=== PATIENT | female | born 1950 | race Caucasian/White ===

== ENCOUNTER 2020-09-08 08:20 | Outpatient (CLI) | payer MEDICARE, SELFPAY ==
[2020-09-08 08:33] LABS: Basophils Absolute Auto 0.06 K/mm3 (0.00-0.10); Basophils Percent Auto 0.6 % (0.0-1.0); Eosinophils Absolute Auto 0.18 K/mm3 (0.02-0.50); Eosinophils Percent Auto 1.8 % (1.0-6.0); Hematocrit 47.2 % (35.0-42.0); Hemoglobin 15.2 g/dL (11.7-13.8); Immature Granulocyte Absolute 0.03 K/mm3 (0.00-0.00); Immature Granulocyte Percent A 0.3 % (0.0-0.0); Lymphocytes Absolute Auto 1.76 K/mm3 (1.10-4.50); Lymphocytes Percent Auto 17.5 % (18.0-42.0); Mean Corpuscular HGB Conc 32.2 g/dL (32.0-36.0); Mean Corpuscular Hemoglobin 28.7 pg (27.0-31.0); Mean Corpuscular Volume 89.1 fL (78.0-102.0); Mean Platelet Volume 10.2 fl (9.2-11.8); Monocytes Absolute Auto 0.53 K/mm3 (0.10-0.90); Monocytes Percent Auto 5.3 % (2.0-11.0); Neutrophils Absolute Auto 7.5 K/mm3 (1.7-7.2); Neutrophils Percent Auto 74.5 % (50.0-70.0); Platelet Count Result 418 K/mm3 (150-420); Red Cell Distribution Width 14.3 % (11.6-14.4); White Blood Count 10.1 K/mm3 (4.8-10.8)
[2020-09-08 09:14] LABS: Alanine Aminotransferase 23 U/L (14-59); Albumin Level 3.6 g/dL (3.4-5.0); Alkaline Phosphatase 104 U/L (46-116); Anion Gap 6 mmol/L (8-16); Aspartate Amino Transferase 21 U/L (15-37); Bilirubin,Total 0.6 mg/dL (0.00-1.00); Blood Urea Nitrogen 20 mg/dL (7-18); Calcium 9.1 mg/dL (8.5-10.1); Carbon Dioxide 30 mmol/L (21-32); Chloride 108 mmol/L (98-108); Cholesterol 131 mg/dL (0-200); Estimated Glomerular Filt Rate 31; Glucose 94 mg/dL (70-99); HDL Direct 43 mg/dL (40-60); LDL Cholesterol Calculated 63 mg/dL (<130); Osmolality Calculated 300 mOsm/kg (285-295); Potassium 4.8 mmol/L (3.5-5.1); Sodium 144 mmol/L (136-145); Total Protein 6.8 g/dL (6.4-8.2); Triglycerides 127 mg/dL (0-150)
== END 2020-09-08 08:21 | disposition home or self-care (01) ==
LOC: CHSLAB 08:24
PROVIDERS: PCP Nurse Practitioner Family; Visit Provider Nurse Practitioner Family
DX: E78.5 Hyperlipidemia, unspecified (principal); I10 Essential (primary) hypertension
CPT/HCPCS: 36415; 80053; 80061; 85025

== ENCOUNTER 2020-09-23 08:45 | Emergency (ER) | payer MEDICARE, SELFPAY ==
--- NOTE | ~2020-09-23 | CT_ITS ---
EXAMINATION: CT brain wo con DATE: 09/23/2020 09:00 INDICATION: Confusion. Twitching. TECHNIQUE: Computed tomography (CT) of the head was performed without intravenous contrast. The mA wa s adjusted according to patient size. Iterative reconstruction technique was employed. The dose-lengt h product was 605.33 mGy-cm. COMPARISON: Head CT 04/19/2016 FINDINGS: There is old infarct in right temporal parietal occipital region in the expected distributi on of right posterior cerebral artery. There are old infarcts in the bilateral basal ganglia. There i s no intracranial hemorrhage, acute infarction, or abnormal intracranial mass lesion. There are scatt ered areas of low attenuation in the cerebral white matter. There is ex vacuo dilatation of right lat eral ventricle. There is mild mucosal thickening in the paranasal sinuses. The mastoid air cells are normal. The orbits are normal. IMPRESSION: 1. Old infarcts in the right temporal parietal occipital region and bilateral basal ganglia. I called this result to Kwasi Servin. 2. Stable mild nonspecific cerebral white matter disease, which likely represents chronic small vesse l ischemic disease. Reviewed, dictated and finalized at location B. IMPRESSION: 1. Old infarcts in the right temporal parietal occipital region and bilateral b franky ganglia. I called this result to Kwasi Servin. 2. Stable mild nonspecific cerebral white matter disease, which likely represen ts chronic small vessel ischemic disease.
--- NOTE | ~2020-09-23 | XR_ITS ---
EXAMINATION: XR chest 1V portable DATE: 09/23/2020 09:26 INDICATION: Cerebrovascular accident. TECHNIQUE: A single frontal view of the chest was obtained. COMPARISON: None. FINDINGS: The chest demonstrates clear lungs without pneumonia, pleural effusion, or pneumothorax. Th e heart size is normal. IMPRESSION: 1. No acute cardiopulmonary disease. Reviewed, dictated and finalized at location B.
[2020-09-23 09:00] VITALS: BP 181/86; PULSE 75; RESP 20; TEMP 36.9; O2SAT 98
--- NOTE | 2020-09-23 09:05 | ECG_ITS ---
Measurements Intervals [place] Rate: 70 P: 71 NH: 139 QRS: -32 QRSD: 85 T: 82 QT: 376 QTc: 408 Interpretive Statements SINUS RHYTHM LEFT AXIS DEVIATION BASELINE ARTIFACT- I, II, III, AVR, AVL, AVF, V1, V4-V6 BORDERLINE ECG Electronically Signed On 09-23-2020 12:07:06 CDT by Alexis Cazares D.O.
[2020-09-23] MEDS: ASPIRIN 81 MG CHEWABLE TABLET 324 MG PO (09:15)
--- NOTE | 2020-09-23 09:18 | ED.NEUROSD ---
HPI - Neuro Symptoms/Deficit General Chief Complaint: Suspected CVA Stated Complaint: possible stroke Source: patient and family Mode of arrival: ambulatory Limitations: altered mental status History of Present Illness HPI Narrative: THis woman comes in brought by . She was last seen in her normal state last pm about 8pm. This morning at about 8:15 am she was seen in the kitchen by her . She seemed confused to him, and he had to help her sit down. She evidently did not recognize her medicines this am, according to the . Onset (ago): unknown Timing confirmed by: spouse Location: right arm (weakness right hand ) History of same: No Severity: moderate Quality: weak Relieving factors: none Exacerbating factors: none Associated symptoms: confusion Treatments Prior to Arrival: none Related Data Allergies Allergy/AdvReac Type Severity Reaction Status Date / Time No Known Allergies Allergy Unverified 06/05/20 07:45 Review of Systems Constitutional: Constitutional: Reports no additional constitutional complaints Eyes: Eyes: Reports no additional eye complaints ENT: Reports system reviewed and no additional complaints, except as documented Cardiovascular: Cardiovascular: Reports no additional cardiovascular complaints Respiratory: Respiratory: Reports no additional respiratory complaints Gastrointestinal: Gastrointestinal: Reports no additional gastrointestinal complaints Genitourinary: Genitourinary: Reports no additional female genitourinary complaints Musculoskeletal: Comments: new weakness right hand Integumentary/Breasts: Skin/Breast: Reports system reviewed and no additional complaints, except as docu Neurologic: Reports confusion Comments: weakness in right hand, which is new Psychiatric: Psychiatric: Reports no additional psychiatric complaints Endocrine: Endocrine: Reports no additional endocrine complaints Hematologic/Lymphatic: Hematologic/Lymphatic: Reports no additional hematologic/lymphatic complaints Allergic/Immunologic: Allergic/Immunologic: Reports no additional allergic/immunologic complaints [facility] Past Medical History Medical History Boil Hyperlipidemia Hypertension Need for 23-polyvalent pneumococcal polysaccharide vaccine Nicotine dependence TIA (transient ischemic attack) Surgical History Surgical History History of hysterectomy Family History Family History (Updated 09/23/20 @ 10:11 by Isaac Fernandez MD) Mother Family history non-contributory Social History Social History Smoking packs per day: 1 Smoking cigarettes per day: 20.0 Years smoked: 28 Smoking pack-years: 28.00 Smoking status: Current every day smoker Tobacco type: cigarettes Alcohol intake: current Substance use: never Substance use type: does not use Additional living arrangements comments: , has 2 children Gender identity (if verbalized by the patient): Female Spiritual care concerns: No Exam Const: General: cooperative, alert and awake Nutritional Appearance: average body habitus Orientation/consciousness: patient oriented x3 HENMT: Head: normal to inspection and normocephalic Ears: hearing grossly normal bilaterally General nose exam: Normal nares present Face and sinus: normal facial exam and face symmetric Mouth: Yes Normal oral and palatal mucosa present Teeth and gingiva: poor dentition Throat: posterior oropharynx normal Eyes: General: appearance normal, both eyes and all related structures Visual Jean: normal visual jean by confrontation Conjunctivae: conjunctivae normal Sclera: sclerae normal Pupils: Pupils normal by confrontation Neck: Neck: normal visual inspection Chest: Chest palpation & inspection: normal inspection of the chest Resp: Effort & Inspection: normal
[2020-09-23 09:20] VITALS: BP 161/74; PULSE 75; RESP 20; O2SAT 98
[2020-09-23 09:21] LABS: Basophils Absolute Auto 0.06 K/mm3 (0.00-0.10); Basophils Percent Auto 0.7 % (0.0-1.0); Eosinophils Absolute Auto 0.11 K/mm3 (0.02-0.50); Eosinophils Percent Auto 1.3 % (1.0-6.0); Hematocrit 45.9 % (35.0-42.0); Hemoglobin 15.1 g/dL (11.7-13.8); Immature Granulocyte Absolute 0.01 K/mm3 (0.00-0.00); Immature Granulocyte Percent A 0.1 % (0.0-0.0); Lymphocytes Absolute Auto 1.96 K/mm3 (1.10-4.50); Lymphocytes Percent Auto 23.9 % (18.0-42.0); Mean Corpuscular HGB Conc 32.9 g/dL (32.0-36.0); Mean Corpuscular Hemoglobin 28.9 pg (27.0-31.0); Mean Corpuscular Volume 87.8 fL (78.0-102.0); Mean Platelet Volume 10.5 fl (9.2-11.8); Monocytes Absolute Auto 0.48 K/mm3 (0.10-0.90); Monocytes Percent Auto 5.8 % (2.0-11.0); Neutrophils Absolute Auto 5.6 K/mm3 (1.7-7.2); Neutrophils Percent Auto 68.2 % (50.0-70.0); Platelet Count Result 398 K/mm3 (150-420); Red Blood Count 5.23 M/mm3 (4.20-5.40); Red Cell Distribution Width 14.2 % (11.6-14.4); White Blood Count 8.2 K/mm3 (4.8-10.8)
[2020-09-23 09:27] LABS: Prothrombin Time 10.7 Seconds (9.64-11.0)
[2020-09-23 09:29] VITALS: PULSE 74
[2020-09-23] MEDS: carvediloL 6.25 MG TABLET PO (09:29)
[2020-09-23 09:30] LABS: Add Urine Microscopic? YES; Appearance Urine Clear (Clear); Bilirubin Urine Negative (Negative); Blood Urine Negative (Negative); Color Urine Yellow (Yellow); Glucose Urine UA Negative (Negative); Ketones Urine Negative (Negative); Leukocyte Esterase Ur Negative (Negative); Nitrate Urine Negative (Negative); Protein Urine 1+ (Negative); Specific Grav Ur 1.015 (1.010-1.020); Urobilinogen Urine 0.2 mg/dL (0.2-1.0); pH Urine 6.5 (5.0-8.0)
[2020-09-23 09:34] LABS: Bacteria Urine Trace /hpf; RBC Urine None seen /hpf (0-2); Squamous Epithelial Cell Urine Few /hpf (Few); WBC Urine None seen /hpf (0-3)
[2020-09-23 09:34] LABS: Alanine Aminotransferase 19 U/L (14-59); Albumin Level 3.5 g/dL (3.4-5.0); Alkaline Phosphatase 94 U/L (46-116); Anion Gap 9 mmol/L (8-16); Aspartate Amino Transferase 15 U/L (15-37); Bilirubin,Total 0.6 mg/dL (0.00-1.00); Blood Urea Nitrogen 19 mg/dL (7-18); Calcium 8.8 mg/dL (8.5-10.1); Carbon Dioxide 26 mmol/L (21-32); Chloride 107 mmol/L (98-108); Estimated CRCL calculation 28 ml/min; Estimated Glomerular Filt Rate 32; Glucose 101 mg/dL (70-99); NT Pro B Type Natriuretic Pept 320 pg/mL (0-125); Osmolality Calculated 296 mOsm/kg (285-295); Potassium 4.1 mmol/L (3.5-5.1); Sodium 142 mmol/L (136-145); Total Protein 7.1 g/dL (6.4-8.2); Troponin I 7.1 ng/L (0.00-60.4)
[2020-09-23 09:35] LABS: Amphetamine Screen Urine Negative (Negative); Barbiturate Screen Urine Negative (Negative); Benzodiazepines Screen Urine Negative (Negative); Cannabinoid Screen Urine Negative (Negative); Cocaine Screen Urine Negative (Negative); Methadone Screen Urine Negative (Negative); Opiate Screen Urine Negative (Negative); Phencyclidine Screen Urine Negative (Negative)
--- NOTE | 2020-09-23 09:40 | PC.NURSE ---
Call placed to [facility] for stat stroke protocol, p reviewing all info. they called back and stated pt. not candidate for interventionalist and pt. will be placed on wait list due to no beds available. Call then placed to [facility], same report given, and they stated no bed available either. Call placed to [facility], infor given and awaiting call back from Stroke team at [facility]. Pt assisted to [facility]SC and is confused when trying to assist to toilet, pt. is unable to get to toilet s help.
[2020-09-23 09:50] LABS: Partial Thromboplastin Time 19.9 SEC (23.90-30.70)
--- NOTE | 2020-09-23 10:05 | PC.NURSE ---
Pt. to transfer to [facility], paperwork signed and given to RAI kirby report. VSS.
[2020-09-23 10:07] VITALS: BP 165/81; PULSE 74; RESP 20; TEMP 36.6; O2SAT 98
--- NOTE | 2020-09-23 10:10 | PC.NURSE ---
[id number] interventionalist Dr. Thompson, accepts for transfer. [facility] here for pt. transfer.
== END 2020-09-23 10:05 | disposition short-term general hospital (02) ==
PROVIDERS: Emergency Provider Emergency Medicine; PCP Nurse Practitioner Family
DX: I63.9 Cerebral infarction, unspecified (principal); E78.5 Hyperlipidemia, unspecified; I10 Essential (primary) hypertension; F17.200 Nicotine dependence, unspecified, uncomplicated
CPT/HCPCS: 36415; 70450; 71045; 80053; 80307; 81001; 83880; 84484; 85025; 85610; 85730; 93005; 99285; A9270

== ENCOUNTER 2020-12-02 10:10 | Outpatient (CLI) | payer MEDICARE, SELFPAY ==
[2020-12-02 11:22] LABS: Alanine Aminotransferase 25 U/L (14-59); Albumin Level 3.7 g/dL (3.4-5.0); Alkaline Phosphatase 89 U/L (46-116); Anion Gap 13 mmol/L (8-16); Aspartate Amino Transferase 21 U/L (15-37); Bilirubin,Total 0.6 mg/dL (0.00-1.00); Blood Urea Nitrogen 21 mg/dL (7-18); Carbon Dioxide 27 mmol/L (21-32); Chloride 107 mmol/L (98-108); Estimated Glomerular Filt Rate 35; Glucose 91 mg/dL (70-99); Osmolality Calculated 307 mOsm/kg (285-295); Potassium 4.7 mmol/L (3.5-5.1); Sodium 147 mmol/L (136-145); Total Protein 6.9 g/dL (6.4-8.2)
== END 2020-12-02 10:11 | disposition home or self-care (01) ==
LOC: CHSLAB 10:13
PROVIDERS: PCP Nurse Practitioner Family; Visit Provider Nurse Practitioner Family
DX: R79.89 Other specified abnormal findings of blood chemistry (principal)
CPT/HCPCS: 36415; 80053

== ENCOUNTER 2021-12-07 09:14 | Outpatient (CLI) | payer MEDICARE, SELFPAY ==
[2021-12-07 09:26] LABS: Basophils Absolute Auto 0.08 K/mm3 (0.00-0.10); Basophils Percent Auto 1.1 % (0.0-1.0); Eosinophils Absolute Auto 0.21 K/mm3 (0.02-0.50); Hemoglobin 15.5 g/dL (11.7-13.8); Immature Granulocyte Absolute 0.02 K/mm3 (0.00-0.00); Immature Granulocyte Percent A 0.3 % (0.0-0.0); Lymphocytes Absolute Auto 1.23 K/mm3 (1.10-4.50); Lymphocytes Percent Auto 17.3 % (18.0-42.0); Mean Corpuscular HGB Conc 32.3 g/dL (32.0-36.0); Mean Corpuscular Volume 89.9 fL (78.0-102.0); Mean Platelet Volume 10.3 fl (9.2-11.8); Monocytes Absolute Auto 0.53 K/mm3 (0.10-0.90); Monocytes Percent Auto 7.5 % (2.0-11.0); Neutrophils Percent Auto 70.8 % (50.0-70.0); Platelet Count Result 434 K/mm3 (150-420); Red Blood Count 5.34 M/mm3 (4.20-5.40); Red Cell Distribution Width 14.1 % (11.6-14.4); White Blood Count 7.1 K/mm3 (4.8-10.8)
[2021-12-07 10:09] LABS: Alanine Aminotransferase 22 U/L (14-59); Albumin Level 3.7 g/dL (3.4-5.0); Alkaline Phosphatase 93 U/L (46-116); Anion Gap 6 mmol/L (8-16); Aspartate Amino Transferase 21 U/L (15-37); Bilirubin,Total 0.5 mg/dL (0.00-1.00); Blood Urea Nitrogen 17 mg/dL (7-18); Calcium 8.8 mg/dL (8.5-10.1); Carbon Dioxide 29 mmol/L (21-32); Chloride 106 mmol/L (98-108); Cholesterol 114 mg/dL (0-200); Estimated Glomerular Filt Rate 33; Glucose 96 mg/dL (70-99); HDL Direct 50 mg/dL (40-60); LDL Cholesterol Calculated 40 mg/dL (<130); Osmolality Calculated 293 mOsm/kg (285-295); Potassium 4.8 mmol/L (3.5-5.1); Sodium 141 mmol/L (136-145); Total Protein 6.7 g/dL (6.4-8.2); Triglycerides 122 mg/dL (0-150)
== END 2021-12-07 09:15 | disposition home or self-care (01) ==
LOC: CHSLAB 09:16
PROVIDERS: PCP Nurse Practitioner Family; Visit Provider Nurse Practitioner Family
DX: E78.5 Hyperlipidemia, unspecified (principal); N18.30 Chronic kidney disease, stage 3 unspecified
CPT/HCPCS: 36415; 80053; 80061; 85025

== ENCOUNTER 2022-04-03 11:13 | Inpatient (IN) | payer MEDICARE, SELFPAY ==
[2022-04-03] VITALS (29 sets, daily range): BP systolic 110–152; BP diastolic 60–136; PULSE 65–88; RESP 12–24; TEMP 36.9; O2SAT 94–100; BMI 17.9
--- NOTE | ~2022-04-03 | CT_ITS ---
EXAMINATION: CT knee RT wo con DATE: 04/05/2022 08:22 INDICATION: Right knee pain. Fall. TECHNIQUE: Computed tomography (CT) of the right knee was performed without intravenous contrast. Aut omated exposure control and iterative reconstruction technique were employed. The dose-length product was 444.02 mGy-cm. COMPARISON: Right knee radiographs 04/04/2022 FINDINGS: Partially visualized is a brady in femoral diaphysis. No fracture. There are benign bone mary nds in distal femur and proximal tibia. There is mild osteoarthritis of medial and lateral compartmen ts and at least moderate osteoarthritis of patellofemoral compartment. There is a small knee joint ef fusion with loose bodies in the posterior recess. IMPRESSION: 1. No acute fracture. 2. Moderate right knee osteoarthritis. 3. Small right knee joint effusion with loose bodies. Reviewed, dictated and finalized at location A. ING UTILITY WORKER
--- NOTE | ~2022-04-03 | XR_ITS ---
EXAMINATION: XR surgery orthopedic DATE: 04/04/2022 15:15 INDICATION: Intertrochanteric nailing of a comminuted intratrochanteric right hip fracture TECHNIQUE: 6 fluoroscopic images of the right hip were obtained during procedure performed by Dr. Nic varma. Radiologist was not present for the imaging or procedure. The amount of fluoroscopy time used d uring this procedure was 2.1 minutes. COMPARISON: 04/03/22 FINDINGS: Interval reduction and internal fixation of a comminuted intratrochanteric fracture of the proximal r ight femur with an antegrade intramedullary brady and pair of interlocking femoral neck dynamic thomas mellisa screws. Alignment of the fixation appears near-anatomic. No change in mild proximal/medial distr action of the fragments comprising portions of the lesser and greater trochanters which are not inclu ded within the fixation. Mild osteoarthritis at the right hip. Sclerotic likely bone island projectin g over the medial right acetabulum. IMPRESSION: 1. Near-anatomic alignment of the weightbearing axis of the right femur post reduction and internal f ixation of a comminuted intratrochanteric fracture of the proximal right femur. Reviewed, dictated and finalized at location A. NESS DEVELOPMENT COORDINATOR IMPRESSION: 1. Near-anatomic alignment of the weightbearing axis of the right femur post re duction and internal fixation of a comminuted intratrochanteric fracture of the proximal right femur.
--- NOTE | ~2022-04-03 | US_ITS ---
US renal BI 04/04/2022 10:03 Procedure: Realtime transabdominal ultrasound of the kidneys and bladder. Indication: Acute renal insufficiency Comparison: No prior studies for comparison. Findings: Renal echotexture is normal bilaterally without hydronephrosis, contour deforming mass or r enal calculus. The right kidney measures 9.7 cm and left kidney measures 8.5 cm. Bladder not well di stended for evaluation. Impression: 1: Unremarkable renal ultrasound. No stones, masses or hydronephrosis. Reviewed, dictated and finalized at location B. T LINE SUPERVISOR Impression: 1: Unremarkable renal ultrasound. No stones, masses or hydronephrosis.
--- NOTE | ~2022-04-03 | XR_ITS ---
EXAMINATION: XR chest 1V DATE: 04/03/2022 11:43 INDICATION: Right hip pain post fall for preoperative evaluation. Cardiac risk factors of hypertensio n, hyperlipidemia and smoking. TECHNIQUE: frontal view of the chest was obtained. COMPARISON: Chest radiograph dated 09/23/2020 FINDINGS: The lungs remain clear with no focal airspace opacities, pulmonary edema, pleural effusion or pneumot horax. The cardiomediastinal silhouette is normal. Visualized bones and soft tissues are unremarkable . IMPRESSION: 1. No acute cardiopulmonary disease. Reviewed, dictated and finalized at location A. D SERVICE SUPERVISOR
--- NOTE | ~2022-04-03 | XR_ITS ---
EXAMINATION: XR hip RT 2V w AP pelvis DATE: 04/03/2022 11:43 INDICATION: Right hip pain post fall TECHNIQUE: Anteroposterior view of the pelvis and anteroposterior and cross-table lateral views of th e affected hip were obtained. COMPARISON: None. FINDINGS: Comminuted intratrochanteric fracture of the proximal right femur. There is proximal migration of the main distal fragment relative to the femoral head and neck fragment resulting in approximately 20 de grees varus angulation. There is separate smaller lesser trochanteric and greater trochanteric fractu re fragments both which appear distracted medially. The right femoral head remains normally centered in the right acetabulum with mild bilateral hip osteoarthritis. No other fractures identified. There are few scattered small sclerotic bone islands in the pelvis. IMPRESSION: 1. Comminuted intratrochanteric fracture of the proximal right femur with displacement and angulation as detailed above. Reviewed, dictated and finalized at location A. GRADER OPERATOR IMPRESSION: 1. Comminuted intratrochanteric fracture of the proximal right femur with displ acement and angulation as detailed above.
--- NOTE | ~2022-04-03 | XR_ITS ---
EXAMINATION: XR knee RT 2V DATE: 04/04/2022 12:35 INDICATION: Right knee injury. TECHNIQUE: 2 views of right knee were obtained. COMPARISON: None. FINDINGS: Bone alignment is normal. No fracture. There is mild tricompartmental osteoarthritis. There is a small knee joint effusion with loose bodies in the posterior knee joint. There is prepatellar s oft tissue swelling. IMPRESSION: 1. Mild right knee osteoarthritis. 2. Small right knee joint effusion with loose bodies. Reviewed, dictated and finalized at location A. ITY ASSURANCE SUPERVISOR
--- NOTE | 2022-04-03 11:39 | ECG_ITS ---
Measurements Intervals [place] Rate: 68 P: 71 [place]: 126 QRS: -33 QRSD: 87 T: 64 QT: 408 QTc: 436 Interpretive Statements SINUS RHYTHM LEFT AXIS DEVIATION POSSIBLE LEFT ATRIAL ENLARGEMENT RSR' IN V1 OR V2, PROBABLY NORMAL VARIANT BASELINE ARTIFACT- I, III, AVR, AVL, AVF, V1-V6 BORDERLINE ECG COMPARED TO ECG 09/23/2020 09:06:07 NO SIGNIFICANT CHANGES Electronically Signed On 04-03-2022 17:00:35 METAL DIE FINISHER by Alexis Cazares D.O.
--- NOTE | 2022-04-03 12:09 | ED.FALL ---
HPI - Fall General Chief Complaint: Fall Stated Complaint: fall, hip injury Time Seen by Provider: 04/03/22 11:36 Source: patient and family Mode of arrival: EMS Limitations: no limitations History of Present Illness HPI Narrative: This is a 71 year old female that presents to the ER after a fall last night with right hip pain. Reports she tripped over a rug and fell onto her right hip. She did not hit her head or lose consciousness. Reports since the fall she has had right hip pain. She initially was able to walk, but is no longer able to walk due to pain. Reports decreased ROM in the hip. Denies chest pain, abdominal pain, back pain, numbness or weakness. Related Data Allergies Allergy/AdvReac Type Severity Reaction Status Date / Time No Known Allergies Allergy Unverified 12/07/21 08:06 Review of Systems Review of Systems: CONSTITUTIONAL: Denies fever CARDIOVASCULAR: Denies chest pain GASTROINTESTINAL: Denies abdominal pain, vomiting MUSCULOSKELETAL: Reports joint pain and myalgia. Denies back pain NEUROLOGIC: Denies numbness, or weakness. All systems reviewed & are unremarkable except as noted in HPI and below PMFSH Past Medical History Medical History (Updated 04/03/22 @ 14:34 by Neelam Madrigal PA-C) Boil Essential tremor History of CVA (cerebrovascular accident) Hyperlipidemia Hypertension Need for 23-polyvalent pneumococcal polysaccharide vaccine Nicotine dependence TIA (transient ischemic attack) Surgical History Surgical History History of hysterectomy Family History Family History (Updated 04/03/22 @ 14:14 by Adelaida Valdez NP) Mother Hypertension Social History Social History (Updated 04/03/22 @ 14:05 by Adelaida Valdez NP) Social History: she lives with her . she has has 2 sons. one son lives with them. 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 she drinks a can of beer at times and can drink up to 3 beers during the summer. poa her kids. code status full code Smoking packs per day: 1 Smoking cigarettes per day: 20.0 Years smoked: 28 Smoking pack-years: 28.00 Smoking status: Current every day smoker Tobacco type: cigarettes Alcohol intake: current Alcohol use details: social Substance use: never Substance use type: does not use Additional living arrangements comments: , has 2 children Gender identity (if verbalized by the patient): Female Spiritual care concerns: No Exam Narrative: GENERAL: Well-appearing, well-nourished, and in no acute distress. HEAD: Normocephalic, atraumatic. EYES: PERRLA and EOMI. ENT: Nares clear, no rhinorrhea or epistaxis. Mucous membranes moist. Oropharynx without tonsillar hypertrophy exudate or other lesions. Bilateral TMs pearly peralta non-bulging NECK: Supple. No adenopathy or masses. No midline cervical spine tenderness CHEST: Clear to auscultation. No respiratory distress. No wheezes rales or rhonchi HEART: Regular rate and rhythm. No murmur heard. Normal peripheral pulses. ABDOMEN: Soft, nontender, nondistended, normal active bowel sounds. EXTREMITIES: Normal range of motion. No edema. Right leg is internally rotated and shortened. Normal DP pulses SKIN: Warm, dry, no rash. NEURO: No focal deficits. Alert and oriented x3. CN II-XII grossly intact PSYCH: Normal mood and affect Course Consultations Consultation #1: Spoke with hospitalist about patient and work-up who accepts admission. Date: 04/03/22 Consultation #2: Spoke with orthopedics who will consult Date: 04/03/22 Vital Signs Vital signs: Vital Signs Temperature 98.5 F 04/03/22 11:12 Pulse Rate 67 04/03/22 11:12 Respiratory Rate 16 04/03/22 11:12 Blood Pressure 135/76 04/03/22 11:12 Pulse Oximetry 100 04/03/22 11:12 Oxygen Delivery Room Air 04/03/22 11:12 Temperature 98.5 F 04/03/22 11:12 Pulse Rate 67 04/03/22 11:12 Respirato
[2022-04-03 12:19] LABS: Basophils Percent Auto 0.3 % (0.2-1.2); Eosinophils Percent Auto 0.1 % (0-4.4); Hematocrit 30.9 % (37.0-47.0); Hemoglobin 10.3 g/dL (12.0-15.0); Immature Granulocyte Absolute 0.06 K/mm3 (0.00-0.031); Immature Granulocyte Percent A 0.5 % (0-0.5); Lymphocytes Absolute Auto 0.75 K/mm3 (0.9-3.2); Lymphocytes Percent Auto 6.3 % (18.3-44.2); Mean Corpuscular HGB Conc 33.3 g/dl (32-36); Mean Corpuscular Hemoglobin 29.4 pg (26-34); Mean Corpuscular Volume 88.3 fl (80-100); Mean Platelet Volume 10.9 fl (7.4-10.4); Monocytes Absolute Auto 1.2 K/mm3 (0.1-0.6); Neutrophils Percent Auto 82.8 % (45.5-73.1); Platelet Count Result 374 k/mm3 (150-375); Red Cell Distribution Width 14.1 % (11.5-14.5)
[2022-04-03 12:31] LABS: Anion Gap 8 mmol/L (8-16); Blood Urea Nitrogen 67 mg/dL (7-17); Calcium 7.9 mg/dL (8.4-10.2); Carbon Dioxide 24 mmol/L (22-30); Chloride 96 mmol/L (98-107); Estimated CRCL calculation 12 ml/min; Estimated Glomerular Filt Rate 14; Glucose 111 mg/dL (65-110); Potassium 4.7 mmol/L (3.4-5.0); Sodium 128 mmol/L (137-145)
--- NOTE | 2022-04-03 14:01 | PM.IMHP ---
H&P: HPI History of Present Illness Date/Time: 04/03/22 14:01 Chief Complaint: Fell and had right hip pain Narrative: This is a 71-year-old female patient who has a history of hypertension and she lives with her as well as 1 of her sons. Is reported that the patient fell onto her right hip last night after she tripped over a rug. She landed on her right hip. She stated she did not hit her head or lose consciousness. The patient stated after about 5 minute she was able to pull herself up and was able to walk some. She stated she was sore last night. But this morning she was no longer able to walk on it due to the pain. The patient denies laying on the ground for very long. Her sodium was 128. Creatinine is 3.3 and her last known level was on 12/07/2021 and it was 155. Her calcium is low at 7.9. Chest x-ray was read as no acute cardiopulmonary disease. Right hip and pelvis x-ray was read as comminuted intertrochanteric fracture of the proximal right femur with displacement and angulation. The patient stated that she was given pain medication in the ambulance and that seemed to take care of her pain. The patient's right leg is externally rotated and shortened. The patient is being admitted to observation status on 04/03/2022. Review of Systems Review of Systems: See HPI All systems reviewed & are unremarkable except as noted in HPI and below Constitutional: Constitutional: Reports as per HPI and Reports no additional constitutional complaints Eyes: Eyes: Reports as per HPI and Reports no additional eye complaints ENT: Reports system reviewed and no additional complaints, except as documented and Reports Normal hearing present Cardiovascular: Cardiovascular: Reports no additional cardiovascular complaints Respiratory: Respiratory: Reports no additional respiratory complaints and Reports no additional respiratory complaints Gastrointestinal: Gastrointestinal: Reports as per HPI and Reports no additional gastrointestinal complaints Musculoskeletal: Musculoskeletal: Reports no additional musculoskeletal complaints Integumentary/Breasts: Skin/Breast: Reports system reviewed and no additional complaints, except as docu and Reports as per HPI Neurologic: Reports system reviewed and no additional complaints, except as documented, Reports as per HPI and Reports Normal hearing present Psychiatric: Psychiatric: Reports no additional psychiatric complaints and Reports as per HPI Endocrine: Endocrine: Reports no additional endocrine complaints Hematologic/Lymphatic: Hematologic/Lymphatic: Reports no additional hematologic/lymphatic complaints Allergic/Immunologic: Allergic/Immunologic: Reports no additional allergic/immunologic complaints [facility] Past Medical History Medical History (Updated 04/03/22 @ 15:25 by Adelaida Valdez NP) Boil Essential tremor History of CVA (cerebrovascular accident) Hyperlipidemia Hypertension Need for 23-polyvalent pneumococcal polysaccharide vaccine Nicotine dependence TIA (transient ischemic attack) Surgical History Surgical History (Updated 04/03/22 @ 14:53 by Adelaida Valdez NP) History of hysterectomy History of removal of pigmented skin lesion Family History Family History (Updated 04/03/22 @ 14:14 by Adelaida Valdez NP) Mother Hypertension Social History Social History (Updated 04/03/22 @ 14:53 by Adelaida Valdez NP) Social History: she lives with her and 1 of her sons. she has has 2 sons. 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 she drinks a can of beer at times and can drink up to 3 beers during the summer.(family member stated that she probably drinks more than stated) Poa her kids. code status full code Smoking packs per day: 1 Smoking cigarettes per day: 20.0 Years smoked: 28 Smoking pack-years: 28.00 Smoking status: Former smoker Tobacco type: cigarettes Alcohol intake: current Alcohol use details:
[2022-04-03 14:27] LABS: Appearance Urine Slightly Cloudy (Clear); Bilirubin Urine 1+ (Negative); Blood Urine 2+ (Negative); Color Urine Yellow (Yellow); Glucose Urine UA Negative (Negative); Ketones Urine Negative (Negative); Leukocyte Esterase Ur Negative LEU/UL (Negative); Nitrate Urine Negative (Negative); Protein Urine 2+ mg/dL (Negative); Specific Grav Ur 1.015 (1.001-1.035); Urobilinogen Urine 0.2 mg/dL (<2.0)
[2022-04-03 14:35] LABS: Bacteria Urine Trace /hpf; Mucus Urine Rare /lpf; RBC Urine 0-2 /hpf (0-2); WBC Urine 0-3 /hpf
[2022-04-03 14:36] LABS: Add Urine Microscopic? YES
--- NOTE | 2022-04-03 14:40 | PC.NURSE ---
report received from Nano OROPEZA RN
[2022-04-03] MEDS: SODIUM CHLORIDE 0.9% IV 1,000 ML 999 ML IV CONT (14:44)
[2022-04-03 15:01] LABS: Amphetamine Screen Urine Negative (Negative); Barbiturate Screen Urine Negative (Negative); Benzodiazepines Screen Urine Negative (Negative); Cannabinoid Screen Urine Negative (Negative); Cocaine Screen Urine Negative (Negative); Methadone Screen Urine Negative (Negative); Opiate Screen Urine Negative (Negative); Phencyclidine Screen Urine Negative (Negative)
--- NOTE | 2022-04-03 15:15 | PC.NURSE ---
called OR to inform that pt took plavix 75 mg and aspirin 81 mg PO this morning.
--- NOTE | 2022-04-03 15:27 | PC.NURSE ---
Spoke with MD Cam stated surgery possibly around 11 am tomorrow per MD Cam, informed pt took plavix 75 mg and aspirin 81 mg po this morning.
[2022-04-03] MEDS: SODIUM CHLORIDE 0.9% IV 1,000 ML 150 ML IV CONT (15:45)
[2022-04-03] MEDS: NICOTINE (*PBKC) 21 MG PATCH 1 PATCH TRANSDERM (15:45)
[2022-04-03] MEDS: fentaNYL CITRATE INJ (*CRX) 100 MCG/2 ML VIAL 25 MCG IV PUSH ×2 (17:32→21:55)
--- NOTE | 2022-04-03 17:49 | PC.NURSE ---
Addendum entered by Radha Solorio RN 04/03/22 18:51: wrong pt Original Note: attempted straight cath for urine sample, unable to obtain pt already voided.
--- NOTE | 2022-04-03 18:26 | PC.NURSE ---
consents signed for surgery tomorrow and blood transfusion if needed.
--- NOTE | 2022-04-03 18:35 | PC.NURSE ---
This patient, Patricia Nava, was admitted to Medical Room 348-01. Patient/family oriented to hospital policies and general routines including ID bracelet, bed and alarms, visiting hours, pain management, procedures, bathroom and other care routines, personal items, smoking policy, room service/diet, and visiting hours. Information on how to activate the Rapid Response Team has been discussed. Patient/Family are encouraged to report perceived risks to care and to ask questions if they do not understand what they are told or what they should do. report received from [facility], pt arrived around 1500
[2022-04-03] MEDS: ATORVASTATIN 40 MG TABLET BY MOUTH (20:34)
[2022-04-03] MEDS: PROPRANOLOL HCL 10 MG TABLET BY MOUTH (20:34)
[2022-04-04] VITALS (19 sets, daily range): BP systolic 112–158; BP diastolic 52–71; PULSE 55–102; RESP 14–18; TEMP 36.2–37.2; O2SAT 94–100
[2022-04-04 05:37] LABS: Basophils Percent Auto 0.3 % (0.2-1.2); Eosinophils Percent Auto 0.1 % (0-4.4); Hematocrit 26.5 % (37.0-47.0); Hemoglobin 8.8 g/dL (12.0-15.0); Immature Granulocyte Absolute 0.06 K/mm3 (0.00-0.031); Immature Granulocyte Percent A 0.5 % (0-0.5); Lymphocytes Absolute Auto 0.95 K/mm3 (0.9-3.2); Lymphocytes Percent Auto 8.4 % (18.3-44.2); Mean Corpuscular HGB Conc 33.2 g/dl (32-36); Mean Corpuscular Hemoglobin 29.2 pg (26-34); Mean Platelet Volume 10.7 fl (7.4-10.4); Monocytes Percent Auto 8.9 % (2.6-8.5); Neutrophils Absolute Auto 9.2 K/mm3 (1.3-6.7); Neutrophils Percent Auto 81.8 % (45.5-73.1); Platelet Count Result 346 k/mm3 (150-375); Red Blood Count 3.01 M/mm3 (4.2-5.4); White Blood Count 11.3 K/mm3 (4.5-10.0)
[2022-04-04 05:45] LABS: Lactic Acid Reflex 0.6 mmol/L (0.7-2.0)
[2022-04-04 05:51] LABS: Alanine Aminotransferase 28 U/L (6-35); Albumin Level 2.9 g/dL (3.5-5.1); Alkaline Phosphatase 60 U/L (38-126); Anion Gap 7 mmol/L (8-16); Aspartate Amino Transferase 51 U/L (14-36); Bilirubin,Total 0.9 mg/dL (0.2-1.3); Blood Urea Nitrogen 70 mg/dL (7-17); Calcium 7.6 mg/dL (8.4-10.2); Carbon Dioxide 20 mmol/L (22-30); Chloride 105 mmol/L (98-107); Estimated CRCL calculation 14 ml/min; Estimated Glomerular Filt Rate 17; Glucose 90 mg/dL (65-110); Magnesium 2.6 mg/dL (1.6-2.3); Potassium 4.2 mmol/L (3.4-5.0); Sodium 132 mmol/L (137-145)
[2022-04-04 06:17] LABS: Vitamin D 25 Hydroxy 17.5 ng/mL
--- NOTE | 2022-04-04 07:22 | WPDHPUPDATE1 ---
History and Physical Update Update Date/Time: 04/04/22 07:22 History and Physical has been reviewed, including an updated exam of the patient. There are NO changes in the patient's condition. Risks, benefits, and alternatives have been discussed and questions answered. Patient agrees to proceed with procedure.
--- NOTE | 2022-04-04 08:45 | P.PNIM_ITS ---
Progress Note: A&P Assessment and Plan (1) Closed fracture of right hip: Qualifiers: Encounter type: initial encounter Qualified Code(s): S72.001A - Fracture of unspecified part of neck of right femur, initial encounter for closed fracture Code(s): S72.001A - Fracture of unspecified part of neck of right femur, initial encounter for closed fracture Status: Acute Assessment and Plan: * Patient presented after a fall. * Right hip a x-ray showed communicated inter trochanter fracture of the prox imal right femur * orthopedics is consulted * surgical procedures scheduled for today * NPO for now * pain medications on board * antiemetics on board * postop care per Orthopedics * DVT prophylaxis per Orthopedics * PT and OT post op (2) CHAD (acute kidney injury): Code(s): N17.9 - Acute kidney failure, unspecified Status: Acute Assessment and Plan: * BUN and creatinine elevated upon arrival at 67 /3.30 * current BUN creatinine 70/2.80 * Creatinine was 1.55 in November * Renal ultrasound does not appear to have any abnormalities * Trend down * Continue IV Fluids * Trend labs * Avoid nephrotoxic medications * Urine studies ordered * Seems to be more likely dehydration * Consider Nephro if improvement is not continued (3) CKD (chronic kidney disease) stage 3, GFR 30-59 ml/min: Code(s): N18.30 - Chronic kidney disease, stage 3 unspecified Status: Acute Assessment and Plan: * Appears to be in stage 3 * Continue to trend labs * See above (4) Hyperlipidemia: Code(s): E78.5 - Hyperlipidemia, unspecified Status: Acute Assessment and Plan: -continue with atorvastatin -monitor liver functions (5) Hypertension: Code(s): I10 - Essential (primary) hypertension Status: Acute Assessment and Plan: * Current BP is 113/61 * Continue home amlodipine * Trend BP * Adjust therapy as indicated (6) Nicotine dependence: Code(s): F17.200 - Nicotine dependence, unspecified, uncomplicated Status: Acute Assessment and Plan: -smoking cessation reiterated for another 5 mins -the patient is agreeable to nicotine patch. -add gum (7) History of CVA (cerebrovascular accident): Code(s): Z86.73 - Personal history of transient ischemic attack (TIA), and cerebral infarction without residual deficits Status: Acute Assessment and Plan: -Only residual she has is essential tremors. -Continue propanolol -Hold plavix and aspirin for surgical intervention (8) Fall: Code(s): W19.XXXA - Unspecified fall, initial encounter Status: Acute Assessment and Plan: * Ground level fall, Velcro from shoes noted to have stuck to the carpet * Hip fracture * Denies any other reason for fall * CHAD noted, UA does not appear to be infectious * PT/OT when appropriate Plan Postop DVT prophylaxis per Ortho. Time Spent With Patient Time with patient: Greater than 35 minutes Subjective Date/time seen: 04/04/22844 Interval history: 04/04/22844 Patient was lying in bed resting com
--- NOTE | 2022-04-04 08:45 | PM.IMPN ---
Progress Note: A&P Assessment and Plan (1) Closed fracture of right hip: Qualifiers: Encounter type: initial encounter Qualified Code(s): S72.001A - Fracture of unspecified part of neck of right femur, initial encounter for closed fracture Code(s): S72.001A - Fracture of unspecified part of neck of right femur, initial encounter for closed fracture Status: Acute Assessment and Plan: Patient presented after a fall. Right hip a x-ray showed communicated inter trochanter fracture of the proximal right femur orthopedics is consulted surgical procedures scheduled for today NPO for now pain medications on board antiemetics on board postop care per Orthopedics DVT prophylaxis per Orthopedics PT and OT post op (2) CHAD (acute kidney injury): Code(s): N17.9 - Acute kidney failure, unspecified Status: Acute Assessment and Plan: BUN and creatinine elevated upon arrival at 67 /3.30 current BUN creatinine 70/2.80 Creatinine was 1.55 in November Renal ultrasound does not appear to have any abnormalities Trend down Continue IV Fluids Trend labs Avoid nephrotoxic medications Urine studies ordered Seems to be more likely dehydration Consider Nephro if improvement is not continued (3) CKD (chronic kidney disease) stage 3, GFR 30-59 ml/min: Code(s): N18.30 - Chronic kidney disease, stage 3 unspecified Status: Acute Assessment and Plan: Appears to be in stage 3 Continue to trend labs See above (4) Hyperlipidemia: Code(s): E78.5 - Hyperlipidemia, unspecified Status: Acute Assessment and Plan: -continue with atorvastatin -monitor liver functions (5) Hypertension: Code(s): I10 - Essential (primary) hypertension Status: Acute Assessment and Plan: Current BP is 113/61 Continue home amlodipine Trend BP Adjust therapy as indicated (6) Nicotine dependence: Code(s): F17.200 - Nicotine dependence, unspecified, uncomplicated Status: Acute Assessment and Plan: -smoking cessation reiterated for another 5 mins -the patient is agreeable to nicotine patch. -add gum (7) History of CVA (cerebrovascular accident): Code(s): Z86.73 - Personal history of transient ischemic attack (TIA), and cerebral infarction without residual deficits Status: Acute Assessment and Plan: -Only residual she has is essential tremors. -Continue propanolol -Hold plavix and aspirin for surgical intervention (8) Fall: Code(s): W19.XXXA - Unspecified fall, initial encounter Status: Acute Assessment and Plan: Ground level fall, Velcro from shoes noted to have stuck to the carpet Hip fracture Denies any other reason for fall CHAD noted, UA does not appear to be infectious PT/OT when appropriate Plan Postop DVT prophylaxis per Ortho. Time Spent With Patient Time with patient: Greater than 35 minutes Subjective Date/time seen: 04/04/22844 Interval history: 04/04/22844 Patient was lying in bed resting comfortably. She currently stated that her pain was a 5/10. She stated that it is mostly just sore with that hip is. She currently denies any chest pain, shortness a breath, nausea, vomiting, diarrhea, constipation. She denies any urinary symptoms including frequency, urgency, burning or pain. It was noted that she had tripped as her velcro shoes got stuck on the rug. 04/03/22? 14:01 This is a 71-year-old female patient who has a history of hypertension and she lives with her as well as 1 of her sons.? Is reported that the patient fell onto her right hip last night after she tripped over a rug.? She landed on her right hip.? She stated she did not hit her head or lose consciousness.? The patient stated
[2022-04-04] MEDS: PROPRANOLOL HCL 10 MG TABLET BY MOUTH ×2 (08:55→20:23)
[2022-04-04 12:02] LABS: Creatinine Urine 102.1 mg/dL; Urea Random Urine 821 MG/DL
[2022-04-04 12:08] LABS: Sodium Urine Random < 5 meq/L
--- NOTE | 2022-04-04 12:15 | PM.CNOR ---
Assessment and Plan Assessment and plan (1) Intertrochanteric fracture of right hip: Code(s): S72.141A - Displaced intertrochanteric fracture of right femur, initial encounter for closed fracture Status: Acute Assessment and Plan: patient is a 71-year-old female who fell at home night before last came into the emergency room yesterday morning with a comminuted displaced 4 part right intertrochanteric hip fracture. She denies other injury. She lives at home with her and son. She does not use a gait aid but is very unsteady and has been for several years. She holds onto the furniture to make her way through her home. She does not walk very much. She had strokes in 2017 and 2018. She had a CT scan brain 09/23/2020 which demonstrated old infarcts right temporal parietal occipital and bilateral basal ganglia infarcts as well as chronic ischemic small vessel disease throughout. Patient is a long-term smoker and continues to smoke. A Nicoderm patch has been applied. Toxicology screen was negative yesterday. Her evaluation yesterday showed a hemoglobin of 10.3 and this morning with rehydration her hemoglobin is 8.8 and this represents chronic anemia with superimposed acute blood loss anemia of before surgery. The anemia is normocytic. Her platelet count was 158790. White count slightly elevated at 11.3. It would seem that she has anemia of chronic disease and may have relative deficiency of erythropoietin associated with chronic renal insufficiency that was noted to be much worse on admission to the emergency room yesterday with creatinine of 3.3 and BUN of 64. After normal saline hydration overnight her creatinine is now 2.8 with BUN of 70. Estimated creatinine clearance was 14. Her sodium remains a little bit low at 132 this morning significantly improved from 06/11 on admission yesterday. With her anemia of 8.8 before surgery to repair a comminuted intertrochanteric hip fracture comment is extremely likely she will need transfusion after surgery and this was explained to patient and her daughter. Type and screen has been completed. Her 25 hydroxy vitamin-D was low at 17.5 and supplementation would be warranted. Calcium was low 7.6 albumin is very low today at 2.9. It was 3.7 on admission prior to rehydration and normally runs in the 3.5 range. Nutritional supplementation would be helpful and we will ask the waist pleater to aid with this as excessive calcium and excessive protein supplementation could be additional stress on her kidneys potentially. On exam today she was very pleasant she is alert and oriented. She was comfortable if she held perfectly still. She asked for a pillow under her left calf and moving her left leg because severe pain in the right hip. She denies any other areas of pain. She moves her arms neck well. She wiggled her toes up and down on the right in has 2+ dorsalis pedis and posterior tibial artery pulses palpable and denies numbness. Her face appears symmetric with no evidence of focal neurologic deficit to suggest recent cerebrovascular accident and she states she has no known deficit from her prior strokes although her balance is quite poor and that might be related. I recommended that she use a walker from this point forward as the risk of further falls is very high and with her osteoporosis that is evident her risk of fracture is very high. She had no swelling in the right leg except for right knee effusion and a 1 inch ecchymosis on the anterolateral aspect of her right knee which apparently struck the floor when she fell. Her stepdaughter who was present did not feel that the right knee was significantly swollen yesterday. We will obtain x-rays to the extent possible make sure there is no displaced fracture there. Renal ultrasound today was negative. Chest x-ray showed no acute disease. EKG showed borderline changes with no change compared with September 23, 2020 EKG. Impression: Patient
--- NOTE | 2022-04-04 12:25 | PM.CNNEP ---
Assessment and Plan Assessment and plan (1) CHAD (acute kidney injury): Code(s): N17.9 - Acute kidney failure, unspecified Status: Acute Assessment and Plan: improvement noted since admission suspect due to volume depletion/prerenal azotemia evaluation to date: urine electrolytes prerenal renal ultrasound normal UA with protein and blood continue gentle IVF hydration follow repeat labs and UOP (2) Stage 3b chronic kidney disease: Code(s): N18.32 - Chronic kidney disease, stage 3b Status: Chronic Assessment and Plan: baseline creatinine runs around 1.4 - 1.7mg/dl from records here at [facility] presumably due to HTN, vascular disease, and age-related change (3) Hypertension: Code(s): I10 - Essential (primary) hypertension Status: Acute Assessment and Plan: reasonable control at this time follow trend of hemodynamics (4) Closed fracture of right hip: Qualifiers: Encounter type: initial encounter Qualified Code(s): S72.001A - Fracture of unspecified part of neck of right femur, initial encounter for closed fracture Code(s): S72.001A - Fracture of unspecified part of neck of right femur, initial encounter for closed fracture Status: Acute Assessment and Plan: Orthopedic consulted/following likely surgical intervention this afternoon Long and extensive discussion (> 20 minute) with patient and family at bedside regarding issue of CHAD/ARF as well as current interventions to date in an effort to get her renal function back to baseline. They all appeared to voice understanding. Will continue to follow. History of Present Illness Reason for Consult Consult date: 04/04/22 Reason for consult: acute renal failure (on chronic kidney disease) Chief Complaint Chief complaint: Right Hip Fracture History of Present Illness Narrative: The patient is a 71-year-old female with a past medical history as outlined below who presented to [facility] Emergency room after she sustained a fall. The patient apparently fell onto her right hip the night before admission after she tripped over a rug. She landed on her right hip and denies any loss of consciousness or head trauma. After about 5 minutes, she was able to pull herself up and able to walk some but that she was sore that entire evening. On the morning of admission, she was no longer able to walk on her right leg due to severe pain. Given the severity of the pain as mentioned, she presented to the emergency room for further assessment. Workup and evaluation in emergency room demonstrated routine blood test that showed an elevated BUN and creatinine above her baseline in association with mild hyponatremia. Her chest x-ray was negative and right hip / pelvis x-rays demonstrated a comminuted intertrochanteric fracture of the proximal right femur with displacement and angulation. Her pain control seems to be reasonable both by medications given via EMS as well as in the emergency room. Her exam was significant for a externally rotated and shortened right leg. Given these laboratory and imaging findings, she was admitted the hospital for further evaluation and therapy Since her admission, with IV fluids, her renal function has improved somewhat as has her electrolyte abnormalities. She has been seen by Orthopedic surgery and she is tentatively scheduled for surgical intervention this afternoon for definitive treatment of her right hip fracture. Renal consultation was requested due to her acute kidney injury/acute renal failure on top of her baseline kidney disease. The patient is not recall ever being told that she had any kidney issues or kidney problems although from review of her records here at [facility], it would seem that she does have some renal insufficiency with a baseline creatinine around 1.4-1.7 mg/dL. Presumably, her renal insufficiency is due t
[2022-04-04] MEDS: LACTATED RINGERS 1,000 ML 30 ML IV CONT (12:40)
--- NOTE | 2022-04-04 12:42 | WPDHPUPDATE1 ---
History and Physical Update Update Date/Time: 04/04/22 12:42 History and Physical has been reviewed, including an updated exam of the patient. There are NO changes in the patient's condition. Risks, benefits, and alternatives have been discussed and questions answered. Patient agrees to proceed with procedure.
[2022-04-04] MEDS: TRANEXAMIC ACID 1,000MG/ISO100 1,000 MG/100 ML BAG 200 MG IVPB (13:00)
--- NOTE | 2022-04-04 13:11 | WPDANESEPPF ---
Anes - Initial Pre Proc Eval Procedure: Operation Date: 04/04/22 14:30 Proposed Procedures p Right Intertrochanteric Nail - Woodrow Cam MD Date/Time: 04/04/22 13:11 Surgeon: Sagar Patrick MD Pre Op Diagnosis: Right Hip Intertrochanteric Fracture, CHAD Patient Data Age: 71 Gender: F Height: 1.7 m Weight: 52 kg Last Vital Signs Temp 37.2 C 04/04/22 12:51 Pulse 71 04/04/22 12:51 Resp 16 04/04/22 12:51 BP 112/52 L 04/04/22 12:51 Pulse Ox 98 04/04/22 12:51 O2 Del Method Room Air 04/04/22 12:51 Allergies Allergy/AdvReac Type Severity Reaction Status Date / Time No Known Allergies Allergy Unverified 12/07/21 08:06 Home Medications Medication Instructions Recorded Confirmed Type aspirin 81 mg tablet,delayed 81 mg PO DAILY #90 tabs 12/07/21 04/03/22 Rx release propranolol 10 mg tablet See Rx Instructions .Route 12/07/21 04/03/22 Rx .COMPLEX #180 tabs amlodipine 5 mg tablet See Rx Instructions .Route 01/14/22 04/03/22 Rx .COMPLEX #90 tabs clopidogrel 75 mg tablet See Rx Instructions .Route 01/19/22 04/03/22 Rx .COMPLEX #90 tabs atorvastatin 40 mg tablet See Rx Instructions .Route 02/28/22 04/03/22 Rx .COMPLEX #90 tabs Laboratory Tests 04/03/22 04/03/22 04/03/22 11:47 14:13 14:39 WBC RBC Hgb Hct MCV MCH MCHC RDW Plt Count MPV Immature Gran % (Auto) Neut % (Auto) Lymph % (Auto) Allen % (Auto) Eos % (Auto) Baso % (Auto) Lymph # (Auto) Allen # (Auto) Eos # (Auto) Baso # (Auto) Abs Immat Gran (auto) Absolute Neuts (auto) Absolute Nucleated RBC Nucleated RBC % Sodium Potassium Chloride Carbon Dioxide Anion Gap BUN Creatinine Estim Creat Clear Calc Estimated GFR Glucose Lactic Acid Calcium Magnesium Total Bilirubin AST ALT Alkaline Phosphatase Total Protein Albumin Vitamin D 25-Hydroxy TSH (Reflex) Urine Color Yellow (Yellow) Urine Appearance Slightly cloudy (Clear) Urine pH 5.0 (5.0-9.0) Ur Specific [place] 1.015 (1.001-1.035) Urine Protein 2+ mg/dL H mg/dL (Negative) Urine Glucose (UA) Negative mg/dL mg/dL (Negative) Urine Ketones Negative mg/dL mg/dL (Negative) Ur Blood (Man) 2+ H (Negative) Urine Nitrate Negative (Negative) Urine Bilirubin 1+ H (Negative) Urine Urobilinogen 0.2 mg/dL mg/dL (<2.0) Leukocyte Esterase Rfl Negative VICKY/UL VICKY/UL (Negative) Urine RBC 0-2 /hpf /hpf (0-2) Urine WBC 0-3 /hpf /hpf Urine Bacteria Trace /hpf /hpf Urine Mucus Rare /lpf /lpf Urine Osmolality Ur Random Sodium Ur Random Urea Urine Creatinine Urine Opiates Screen Negative (Negative) Urine Methadone Screen Negative (Negative) Ur Barbiturates Screen Negative (Negative) Ur Phencyclidine Scrn Negative (Negative) Ur Amphetamine Screen Negative (Negative) U Benzodiazepines Scrn Negative (Negative) Urine Cocaine Screen Negative (Negative) U Cannabinoids Screen Negative (Negative) Blood Type O Positive Antibody Screen Negative 04/04/22 04/04/22 04/04/22 05:20 05:20 05:20 WBC 11.3 K/mm3 H K/mm3 (4.5-10.0) RBC 3.01 M/mm3 L M/mm3 (4.2-
[2022-04-04] MEDS: ceFAZolin 2 GM/D5W 50 ML 2 GM/50 ML BAG IVPB (13:44)
[2022-04-04] MEDS: ceFAZolin SODIUM 1 GM VIAL (14:25)
--- NOTE | 2022-04-04 15:32 | P.OP_ITS ---
Procedure Note - Detailed Date of Procedure 04/04/22 Pre-op Diagnosis Right Hip Intertrochanteric Fracture, CHAD Post-op Diagnosis Same Procedure Performed Open reduction internal fixation right 4 part intertrochanteric hip fracture Surgeon Woodrow Cam MD Commissioned [employer] Associate [employer]aldo Anesthesia General Description of Procedure Patient was brought to the operating room general anesthesia was administered. The right thigh was thoroughly scrubbed with a chlorhexidine cloth. She received 2 g of Ancef 750 mg of vancomycin preoperatively 1 g tranexamic acid. There was moderate swelling and extensive bruising up and down the thigh. The right foot padded she was transferred fracture table right foot placed in the traction boot left leg abducted and flexed out way. Fluoro was brought in and longitudinal traction line the fracture up very nicely on the lateral view the proximal fragment remained in significant valgus on the AP view such that there was impaction the lateral femoral neck base and medial displacement of the medial base of the femoral neck which I felt was suboptimal for medial contact. The hip and thigh were prepped draped usual fashion. A 2 cm longitude incision was made proximal to greater trochanter a guide pin inserted in the center of the greater trochanter lined up with the center of the femoral neck and shaft and starter Reamer. The proximal femur. Long guide brady was placed canal reamed to 13 mm which obtained minimal chatter. 11 mm x 130 degree by 33 cm long Arthrex intramedullary brady was inserted without difficulty using manual pressure to the appropriate depth. We made the more distal incision and made a little bit longer incising the fascia and elevating the vastus lateralis off the femoral shaft so we could and placed a bone hook carefully which grabbed the medial aspect of the distal spike of the base of the femoral neck pulling a close to the shaft achieving about 2 mm from full reduction while this was held we inserted the guide pin into the center of the femoral head on lateral view and slightly inferior on the AP view. Anti rotation guidewire was then placed. We reamed for a 95 mm telescoping lag screw which was inserted and came to rest about 8 mm of subchondral bone the inferior femoral head. This was locked to the brady and the activation pin removed. We released traction and there is no significant further impaction and and 80 mm anti rotation screw was placed without difficulty. Stability of the fracture confirmed and position of the implants confirmed to be appropriate. As the lag screw rested in rather thick cortical bone the lateral femoral shaft proximally we did not distally locked. I chose not to use the ES nail with the mid shaft distal interlocking as she did have moderate osteoarthritis and may require total hip replacement some day which might be compromised by a screw hole right at the tip of a femoral replacement component. Wounds were thoroughly irrigated with antibiotic solution. The fashion both incisions was closed with running 1. Vicryl skin closed with 2 subcutaneous Vicryl and glue EBL was 100 cc. There were no complications she was transferred postop recovery room in stable condition. Estimated Blood Loss 100 Urine Output 200 Complications No immediate complications Condition Stable Disposition PACU
--- NOTE | 2022-04-04 15:41 | PM.OP ---
Procedure Note - Brief Procedure Note - Brief Date of procedure: 04/04/22 <CUBA Ness - Last Filed: 04/04/22 15:42> 04/04/22 <Woodrow Cam MD - Last Filed: 04/04/22 15:43> Pre-op diagnosis: Right Hip Intertrochanteric Fracture, CHAD <CUBA Ness - Last Filed: 04/04/22 15:42> Right hip fracture <CUBA Ness - Last Filed: 04/04/22 15:42> Procedure performed: ORIF right intertrochanteric hip fracture <CUBA Ness - Last Filed: 04/04/22 15:42> Description of procedure: 71-year-old female who underwent ORIF of right intertrochanteric hip fracture. I was involved in the procedure including positioning patient on the fracture table. Persisting 2 times surgery. Assisting getting patient recovery room. Total time spent was 2 hours <CUBA Ness - Last Filed: 04/04/22 15:42> Surgeon: CUBA Ness <CUBA Ness - Last Filed: 04/04/22 15:42>
[2022-04-04 15:47] LABS: Hematocrit 27.9 % (37.0-47.0)
[2022-04-04] MEDS: amLODIPine BESYLATE 5 MG TABLET BY MOUTH (17:53)
[2022-04-04] MEDS: SENNA/DOCUSATE SODIUM TABLET 2 TAB PO (17:53)
[2022-04-04] MEDS: ACETAMINOPHEN 500 MG TABLET 1000 MG PO (17:53)
[2022-04-04] MEDS: oxyCODONE HCL (*CRX) 2.5 MG TAB IR PO ×2 (17:53→20:26)
[2022-04-04] MEDS: NICOTINE (*PBKC) 21 MG PATCH 1 PATCH TRANSDERM (17:53)
[2022-04-04] MEDS: ATORVASTATIN 40 MG TABLET BY MOUTH (20:22)
[2022-04-04] MEDS: FAMOTIDINE 20 MG TABLET PO (20:26)
[2022-04-05] VITALS (10 sets, daily range): BP systolic 110–153; BP diastolic 54–66; PULSE 61–98; RESP 16–20; TEMP 36.6–36.9; O2SAT 92–97; BMI 10.0; BMI 17.9
[2022-04-05] MEDS: ACETAMINOPHEN 500 MG TABLET 1000 MG PO ×5 (00:05→23:22)
[2022-04-05] MEDS: oxyCODONE HCL (*CRX) 2.5 MG TAB IR PO ×4 (00:05→13:55)
[2022-04-05 05:47] LABS: Alanine Aminotransferase 85 U/L (6-35); Albumin Level 3.1 g/dL (3.5-5.1); Alkaline Phosphatase 154 U/L (38-126); Anion Gap 9 mmol/L (8-16); Aspartate Amino Transferase 150 U/L (14-36); Bilirubin,Total 0.9 mg/dL (0.2-1.3); Blood Urea Nitrogen 60 mg/dL (7-17); Calcium 7.8 mg/dL (8.4-10.2); Carbon Dioxide 24 mmol/L (22-30); Chloride 100 mmol/L (98-107); Estimated CRCL calculation 18 ml/min; Estimated Glomerular Filt Rate 22; Glucose 106 mg/dL (65-110); Magnesium 2.4 mg/dL (1.6-2.3); Potassium 3.9 mmol/L (3.4-5.0); Sodium 133 mmol/L (137-145)
[2022-04-05 05:51] LABS: Basophils Percent Auto 0.2 % (0.2-1.2); Hematocrit 25.4 % (37.0-47.0); Hemoglobin 8.5 g/dL (12.0-15.0); Immature Granulocyte Absolute 0.04 K/mm3 (0.00-0.031); Immature Granulocyte Percent A 0.4 % (0-0.5); Lymphocytes Percent Auto 6.7 % (18.3-44.2); Mean Corpuscular HGB Conc 33.5 g/dl (32-36); Mean Corpuscular Hemoglobin 29.3 pg (26-34); Mean Corpuscular Volume 87.6 fl (80-100); Mean Platelet Volume 10.6 fl (7.4-10.4); Monocytes Percent Auto 9.1 % (2.6-8.5); Neutrophils Absolute Auto 8.8 K/mm3 (1.3-6.7); Neutrophils Percent Auto 83.6 % (45.5-73.1); Platelet Count Result 381 k/mm3 (150-375); Red Cell Distribution Width 13.7 % (11.5-14.5); White Blood Count 10.5 K/mm3 (4.5-10.0)
--- NOTE | 2022-04-05 06:54 | PM.PNORT ---
Subjective Subjective Date/Time Seen: 04/05/22 06:54 Postop day 1 patient is alert. She is afebrile vital signs are stable. Pain overall is well controlled. Morning labs are noted. Dressings are dry. Physical therapy will work with patient today. Again she is strict bed to chair transfer only. Patient will need rehab facility until fracture is healed. It will be a minimum of 6 weeks before patient is able to put full weight on the right leg. Objective Data Vital Signs Vital Signs: Vital Signs - 24 hr 04/04/22 08:54 04/04/22 08:55 04/04/22 12:51 Temperature 37.2 C Pulse Rate 83 71 Respiratory Rate 16 Blood Pressure 113/61 112/52 L Pulse Oximetry 98 Oxygen Delivery Room Air Oxygen Flow Rate 04/04/22 15:30 04/04/22 15:45 04/04/22 15:55 Temperature 36.4 C L Pulse Rate 60 55 L Respiratory Rate 18 14 Blood Pressure 140/71 139/62 Pulse Oximetry 100 100 Oxygen Delivery Simple Face Mask Simple Face Mask Room Air Oxygen Flow Rate 6 6 04/04/22 16:00 04/04/22 16:15 04/04/22 16:30 Temperature Pulse Rate 56 L 55 L 57 L Respiratory Rate 16 16 16 Blood Pressure 126/56 L 132/55 L 135/57 L Pulse Oximetry 97 96 96 Oxygen Delivery Room Air Room Air Room Air Oxygen Flow Rate 04/04/22 16:45 04/04/22 17:05 04/04/22 17:20 Temperature 36.4 C L Pulse Rate 58 L 63 62 Respiratory Rate 16 18 18 Blood Pressure 141/61 H 129/64 142/62 H Pulse Oximetry 95 98 97 Oxygen Delivery Room Air Oxygen Flow Rate 04/04/22 17:50 04/04/22 17:03 04/04/22 18:49 Temperature 36.4 C 36.2 C L Pulse Rate 66 66 77 Respiratory Rate 16 16 Blood Pressure 158/66 H 126/64 Pulse Oximetry 99 97 Oxygen Delivery Oxygen Flow Rate 04/04/22 20:23 04/04/22 20:41 04/05/22 00:15 Temperature 36.8 C 36.8 C Pulse Rate 74 64 61 Respiratory Rate 18 18 Blood Pressure 130/67 118/54 L Pulse Oximetry 97 96 Oxygen Delivery Oxygen Flow Rate 04/04/22 21:30 04/04/22 20:00 04/05/22 00:00 Temperature Pulse Rate 102 H 78 61 Respiratory Rate 18 Blood Pressure Pulse Oximetry 94 Oxygen Delivery Room Air Oxygen Flow Rate 04/05/22 04:00 04/05/22 05:31 Temperature 36.8 C Pulse Rate 75 67 Respiratory Rate 18 Blood Pressure 110/58 L Pulse Oximetry 97 Oxygen Delivery Oxygen Flow Rate Intake/Output Intake/Output: Intake & Output 04/02/22 04/03/22 04/04/22 04/05/22 23:59 23:59 23:59 23:59 Intake Total 400 1190 600 Output Total 1000 1730 1400 Balance -600 -540 -800 Meds/Results Medications: Active Medications Generic Name Dose Route Start Last Admin Trade Name Freq PRN Reason Stop Dose Admin Acetaminophen 1,000 mg 04/04/22 18:00 04/05/22 05:04 Acetaminophen 500 Mg Tablet PO 1,000 mg Q6HR ROSIE Administration Amlodipine Besylate 5 mg 04/04/22 09:00 04/04/22 17:53 Amlodipine Besylate 5 Mg Tablet BY MOUTH 5 mg DAILY ROSIE Administration Aspirin 81 mg 04/04/22 09:00 04/04/22 14:50 Aspirin 81 Mg Enteric Tablet PO Not Given DAILY [facility] Atorvastatin Calcium 40 mg 04/03/22 21:00 04/04/22 20:22 Atorvastatin 40 Mg Tablet BY MOUTH 40 mg HS ROSIE Administration Clopidogrel Bisulfate 75 mg 04/05/22 09:00 Clopidogrel Bisulfate 75 Mg Tablet PO QAM [facility] Enoxaparin Sodium 30 mg 04/05/22 09:00 Enoxaparin 30 Mg/0.3 Ml Syringe SUB-Q DAILY [facility] Ergocalciferol 50,000 units 04/11/22 09:00 Ergocalciferol 50,000 Units Capsule PO WEEKLY [facility] Famotidine 20 mg 04/04/22 21:00 04/04/22 20:26 Famotidine 20 Mg Tablet PO 20 mg Q12HR ROSIE Administration Cefazolin Sodium 1 gm in 50 mls @ 100 mls/hr 04/04/22 22:00 04/05/22 05:35 Ancef 1 Gm/D5w 50 Ml Pm IVPB 04/05/22 14:29 Infused Q8H ROSIE Infusion Vancomycin HCl 750 mg in 250 mls @ 250 mls/hr 04/05/22 13:00 Vancomycin 750 Mg/D5w 250 Ml IVPB 04/05/22 13:59 ONCE ONE Naloxone HCl 0.1 mg 04/04/22 16:47 Naloxone Hcl 0.4 Mg/Ml
--- NOTE | 2022-04-05 07:28 | PCPTNOTE ---
Attempted PT eval, pt getting a STAT CT per RN. Will Follow
[2022-04-05] MEDS: SENNA/DOCUSATE SODIUM TABLET 2 TAB PO ×2 (09:47→17:25)
[2022-04-05] MEDS: FAMOTIDINE 20 MG TABLET PO ×2 (09:48→20:17)
[2022-04-05] MEDS: PROPRANOLOL HCL 10 MG TABLET BY MOUTH ×2 (09:48→20:17)
[2022-04-05] MEDS: amLODIPine BESYLATE 5 MG TABLET BY MOUTH (09:48)
[2022-04-05] MEDS: polyethylene glycoL 3350 17 GM POWD.PACK PO (09:48)
[2022-04-05] MEDS: CLOPIDOGREL BISULFATE 75 MG TABLET PO (09:48)
[2022-04-05] MEDS: ASPIRIN 81 MG ENTERIC TABLET PO (09:48)
[2022-04-05] MEDS: SODIUM CHLORIDE 0.9% IV 1,000 ML 100 ML IV CONT (09:50)
[2022-04-05] MEDS: ENOXAPARIN 30 MG/0.3 ML SYRINGE SUB-Q (09:51)
--- NOTE | 2022-04-05 11:00 | PM.IMPN ---
Progress Note: A&P Assessment and Plan (1) Closed fracture of right hip: Qualifiers: Encounter type: initial encounter Qualified Code(s): S72.001A - Fracture of unspecified part of neck of right femur, initial encounter for closed fracture Code(s): S72.001A - Fracture of unspecified part of neck of right femur, initial encounter for closed fracture Status: Acute Assessment and Plan: Patient presented after a fall. Right hip a x-ray showed communicated inter trochanter fracture of the proximal right femur orthopedics is consulted surgical procedures scheduled for today NPO for now pain medications on board, increased dose to 5mg on the scheduled and PRN oxycodone Added morphine 0.5mg IV for 7-10 pain antiemetics on board postop care per Orthopedics DVT prophylaxis per Orthopedics PT and OT post op (2) CHAD (acute kidney injury): Code(s): N17.9 - Acute kidney failure, unspecified Status: Acute Assessment and Plan: BUN and creatinine elevated upon arrival at 67 /3.30 current BUN creatinine 60/2.20 Creatinine was 1.55 in November Renal ultrasound does not appear to have any abnormalities Trend down Continue IV Fluids Trend labs Avoid nephrotoxic medications Urine studies ordered Seems to be more likely dehydration Consider Nephro if improvement is not continued (3) CKD (chronic kidney disease) stage 3, GFR 30-59 ml/min: Code(s): N18.30 - Chronic kidney disease, stage 3 unspecified Status: Acute Assessment and Plan: Appears to be in stage 3 Continue to trend labs See above (4) Hyperlipidemia: Code(s): E78.5 - Hyperlipidemia, unspecified Status: Acute Assessment and Plan: -continue with atorvastatin -monitor liver functions (5) Hypertension: Code(s): I10 - Essential (primary) hypertension Status: Acute Assessment and Plan: Current BP is 127/61 Continue home amlodipine Trend BP Adjust therapy as indicated (6) Nicotine dependence: Code(s): F17.200 - Nicotine dependence, unspecified, uncomplicated Status: Acute Assessment and Plan: -smoking cessation reiterated for another 5 mins -the patient is agreeable to nicotine patch. -add gum (7) History of CVA (cerebrovascular accident): Code(s): Z86.73 - Personal history of transient ischemic attack (TIA), and cerebral infarction without residual deficits Status: Acute Assessment and Plan: -Only residual she has is essential tremors. -Continue propanolol -Hold plavix and aspirin for surgical intervention (8) Fall: Code(s): W19.XXXA - Unspecified fall, initial encounter Status: Acute Assessment and Plan: Ground level fall, Velcro from shoes noted to have stuck to the carpet Hip fracture Denies any other reason for fall CHAD noted, UA does not appear to be infectious PT/OT when appropriate (9) Anemia: Code(s): D64.9 - Anemia, unspecified Status: Acute Assessment and Plan: H/H 8.5/25.4 anemia labs in am supplement as indicated Transfuse as indicated Plan Postop DVT prophylaxis per Ortho. Time Spent With Patient Time with patient: Greater than 35 minutes Subjective Date/time seen: 04/05/22 1100 Interval history: 04/05/22 1100 Patient is very anxious. She is upset that she did not do well with therapy today. She is tremoring more. She is complaining of pain in the right hip. She denies any chest pain, shortness of breath, nausea, vomiting, diarrhea, constipation, weakness or fatigue. Will increase he pain medications as she seems to have some chronic pain issues. Will increase pain medications. 04/04/22 0845 Patient was lying in bed resting comfortably. She cur
--- NOTE | 2022-04-05 11:00 | P.PNIM_ITS ---
Progress Note: A&P Assessment and Plan (1) Closed fracture of right hip: Qualifiers: Encounter type: initial encounter Qualified Code(s): S72.001A - Fracture of unspecified part of neck of right femur, initial encounter for closed fracture Code(s): S72.001A - Fracture of unspecified part of neck of right femur, initial encounter for closed fracture Status: Acute Assessment and Plan: * Patient presented after a fall. * Right hip a x-ray showed communicated inter trochanter fracture of the prox imal right femur * orthopedics is consulted * surgical procedures scheduled for today * NPO for now * pain medications on board, increased dose to 5mg on the scheduled and PRN oxycodone * Added morphine 0.5mg IV for 7-10 pain * antiemetics on board * postop care per Orthopedics * DVT prophylaxis per Orthopedics * PT and OT post op (2) CHAD (acute kidney injury): Code(s): N17.9 - Acute kidney failure, unspecified Status: Acute Assessment and Plan: * BUN and creatinine elevated upon arrival at 67 /3.30 * current BUN creatinine 60/2.20 * Creatinine was 1.55 in November * Renal ultrasound does not appear to have any abnormalities * Trend down * Continue IV Fluids * Trend labs * Avoid nephrotoxic medications * Urine studies ordered * Seems to be more likely dehydration * Consider Nephro if improvement is not continued (3) CKD (chronic kidney disease) stage 3, GFR 30-59 ml/min: Code(s): N18.30 - Chronic kidney disease, stage 3 unspecified Status: Acute Assessment and Plan: * Appears to be in stage 3 * Continue to trend labs * See above (4) Hyperlipidemia: Code(s): E78.5 - Hyperlipidemia, unspecified Status: Acute Assessment and Plan: -continue with atorvastatin -monitor liver functions (5) Hypertension: Code(s): I10 - Essential (primary) hypertension Status: Acute Assessment and Plan: * Current BP is 127/61 * Continue home amlodipine * Trend BP * Adjust therapy as indicated (6) Nicotine dependence: Code(s): F17.200 - Nicotine dependence, unspecified, uncomplicated Status: Acute Assessment and Plan: -smoking cessation reiterated for another 5 mins -the patient is agreeable to nicotine patch. -add gum (7) History of CVA (cerebrovascular accident): Code(s): Z86.73 - Personal history of transient ischemic attack (TIA), and cerebral infarction without residual deficits Status: Acute Assessment and Plan: -Only residual she has is essential tremors. -Continue propanolol -Hold plavix and aspirin for surgical intervention (8) Fall: Code(s): W19.XXXA - Unspecified fall, initial encounter Status: Acute Assessment and Plan: * Ground level fall, Velcro from shoes noted to have stuck to the carpet * Hip fracture * Denies any other reason for fall * CHAD noted, UA does not appear to be infectious * PT/OT when appropriate (9) Anemia: Code(s): D64.9 - Anemia, unspecified Status: Acute Assessment and Plan: * H/H 8.5/25.4 * anemia labs in am * boyd
--- NOTE | 2022-04-05 11:06 | P.PNNP_ITS ---
Progress Note: A&P Assessment and Plan (1) CHAD (acute kidney injury): Code(s): N17.9 - Acute kidney failure, unspecified Status: Acute Assessment and Plan: * improvement noted since admission * suspect due to volume depletion/prerenal azotemia * evaluation to date: * urine electrolytes prerenal * renal ultrasound normal * UA with protein and blood * continue gentle IVF hydration * follow repeat labs and UOP (2) Stage 3b chronic kidney disease: Code(s): N18.32 - Chronic kidney disease, stage 3b Status: Chronic Assessment and Plan: * baseline creatinine runs around 1.4 - 1.7mg/dl from records here at [facility] * presumably due to HTN, vascular disease, and age-related change (3) Closed fracture of right hip: Qualifiers: Encounter type: initial encounter Qualified Code(s): S72.001A - Fracture of unspecified part of neck of right femur, initial encounter for closed fracture Code(s): S72.001A - Fracture of unspecified part of neck of right femur, initial encounter for closed fracture Status: Acute Assessment and Plan: * Orthopedic following * s/p ORIF of right intertrochanteric hip fracture * PT/OT as tolerated * pain control (4) Anemia: Code(s): D64.9 - Anemia, unspecified Status: Acute Assessment and Plan: * due to recent operative intervention and dilution from IVFs * follow trend of H/H (5) Hypertension: Code(s): I10 - Essential (primary) hypertension Status: Acute Assessment and Plan: * reasonable control at this time * follow trend of hemodynamics Will continue to follow. Subjective Date/time seen: 04/05/22 11:06 Patient is s/p open reduction and internal fixation of her right intertr ochanteric hip fracture -- she tolerated this procedure reasonably well; pain control seems adequate but her pain seems to fluctuate in general; renal function slowly improving with current interventions; did not do as well as she thought she should have with therapy earlier today. Exam Narrative: General: elderly female in NAD Heart: normal S1 and S2; no rub Lungs: clear to auscultation Abdomen: soft, nontender, nondistended, positive bowel sounds Extremities: no cyanosis or clubbing; no edema Skin: warm and dry Objective Data Vital Signs Vital Signs: Vital Signs Temp Pulse Resp BP Pulse Ox O2 Del Method O2 Flow Rate 11/22/22 08:00 Room Air 04/05/22 09:48 84 04/05/22 09:16 Room Air 04/05/22 08:00 85 04/05/22 05:31 98.2 F 67 18 110/58 L 97 04/05/22 04:00 75 04/05/22 00:00 61 04/04/22 20:00 78 04/04/22 21:30 102 H 18 94 Room Air 04/05/22 00:15 98.3 F 61 18 118/54 L 96 04/04/22 20:41 98.3 F 64 18 130/67 97 04/04/22 20:23 74 04/04/22 18:49 97.2 F L 77 16 126/64 97 04/04/22 17:03 66 04/04/22 17:50 97.6 F 66 16 158/66 H 99 04/04/22 17:20 97.5 F L 62 18 142/62 H 97 04/04/22 17:05 63 18 129/64 98 04/04/22 16:45 58 L 16 141/61 H 95 Room Air 04/04/22 16:30 57 L 16 135/57 L 96 Room Air 04/04/22 16:15 55 L 16 132/55 L 96 Room Air 04/04/22 16:00 56 L 16 126/56 L 97
--- NOTE | 2022-04-05 11:06 | PM.PNNEP ---
Progress Note: A&P Assessment and Plan (1) CHAD (acute kidney injury): Code(s): N17.9 - Acute kidney failure, unspecified Status: Acute Assessment and Plan: improvement noted since admission suspect due to volume depletion/prerenal azotemia evaluation to date: urine electrolytes prerenal renal ultrasound normal UA with protein and blood continue gentle IVF hydration follow repeat labs and UOP (2) Stage 3b chronic kidney disease: Code(s): N18.32 - Chronic kidney disease, stage 3b Status: Chronic Assessment and Plan: baseline creatinine runs around 1.4 - 1.7mg/dl from records here at [facility] presumably due to HTN, vascular disease, and age-related change (3) Closed fracture of right hip: Qualifiers: Encounter type: initial encounter Qualified Code(s): S72.001A - Fracture of unspecified part of neck of right femur, initial encounter for closed fracture Code(s): S72.001A - Fracture of unspecified part of neck of right femur, initial encounter for closed fracture Status: Acute Assessment and Plan: Orthopedic following s/p ORIF of right intertrochanteric hip fracture PT/OT as tolerated pain control (4) Anemia: Code(s): D64.9 - Anemia, unspecified Status: Acute Assessment and Plan: due to recent operative intervention and dilution from IVFs follow trend of H/H (5) Hypertension: Code(s): I10 - Essential (primary) hypertension Status: Acute Assessment and Plan: reasonable control at this time follow trend of hemodynamics Will continue to follow. Subjective Date/time seen: 04/05/22 11:06 Patient is s/p open reduction and internal fixation of her right intertrochanteric hip fracture -- she tolerated this procedure reasonably well; pain control seems adequate but her pain seems to fluctuate in general; renal function slowly improving with current interventions; did not do as well as she thought she should have with therapy earlier today. Exam Narrative: General: elderly female in NAD Heart: normal S1 and S2; no rub Lungs: clear to auscultation Abdomen: soft, nontender, nondistended, positive bowel sounds Extremities: no cyanosis or clubbing; no edema Skin: warm and dry Objective Data Vital Signs Vital Signs: Vital Signs Temp Pulse Resp BP Pulse Ox O2 Del Method O2 Flow Rate 04/05/22 08:00 Room Air 04/05/22 09:48 84 04/05/22 09:16 Room Air 04/05/22 08:00 85 04/05/22 05:31 98.2 F 67 18 110/58 L 97 04/05/22 04:00 75 04/05/22 00:00 61 04/04/22 20:00 78 04/04/22 21:30 102 H 18 94 Room Air 04/05/22 00:15 98.3 F 61 18 118/54 L 96 04/04/22 20:41 98.3 F 64 18 130/67 97 04/04/22 20:23 74 04/04/22 18:49 97.2 F L 77 16 126/64 97 04/04/22 17:03 66 04/04/22 17:50 97.6 F 66 16 158/66 H 99 04/04/22 17:20 97.5 F L 62 18 142/62 H 97 04/04/22 17:05 63 18 129/64 98 04/04/22 16:45 58 L 16 141/61 H 95 Room Air 04/04/22 16:30 57 L 16 135/57 L 96 Room Air 04/04/22 16:15 55 L 16 132/55 L 96 Room Air 04/04/22 16:00 56 L 16 126/56 L 97 Room Air 04/04/22 15:55 Room Air 04/04/22 15:45 55 L 14 139/62 100 Simple Face Mask 6 04/04/22 15:30 97.5 F L 60 18 140/71 100 Simple Face Mask 6 04/04/22 12:51 99 F 71 16 112/52 L 98 Room Air Intake/Output Intake/Output: Intake & Output 04/02/22 04/03/22 04/04/22 04/05/22 23:59 23:59 23:59 23:59 Intake Total 400 1190 840 Output Total 1000 1730 1400 Balance -600 -068 -560 Meds/Results Medications: Active Medications Generic Name Dose Route Start Last Admin Trade Name Freq PRN Reason Stop Dose Admin Acetaminophen 1,000 mg 04/04/22 18:00 04/05/22 05:04 Acetaminophen 500 Mg Tablet PO 1,000 mg Q6HR ROSIE Administra
--- NOTE | 2022-04-05 11:40 | WPDANESPN ---
Anes - Prog Note Post-Op Date/Time: 04/05/22 11:40 Vital Signs: Last Vital Signs Temp 36.8 C 04/05/22 11:12 Pulse 75 04/05/22 11:12 Resp 16 04/05/22 11:12 BP 112/63 04/05/22 11:12 Pulse Ox 96 04/05/22 11:12 O2 Del Method Room Air 04/05/22 09:16 O2 Flow Rate 6 04/04/22 15:45 Pain Score (VAS): 0 I/O: Intake & Output 04/04/22 04/05/22 04/05/22 23:59 07:59 15:59 Intake Total 690 600 240 Output Total 180 1400 Balance 510 -800 240 Laboratory Tests 04/05/22 05:25 04/05/22 05:25 04/04/22 04/04/22 04/05/22 11:25 15:36 05:25 WBC 10.5 H RBC 2.90 L Hgb 9.0 L 8.5 L Hct 27.9 L 25.4 L MCV 87.6 MCH 29.3 MCHC 33.5 RDW 13.7 Plt Count 381 H MPV 10.6 H Immature Gran % (Auto) 0.4 Neut % (Auto) 83.6 H Lymph % (Auto) 6.7 L [place] % (Auto) 9.1 H Eos % (Auto) 0.0 Baso % (Auto) 0.2 Lymph # (Auto) 0.70 L [place] # (Auto) 1.0 H Eos # (Auto) 0.0 Baso # (Auto) 0.0 Abs Immat Gran (auto) 0.04 H Absolute Neuts (auto) 8.8 H Absolute Nucleated RBC 0.0 Nucleated RBC % 0.0 Sodium Potassium Chloride Carbon Dioxide Anion Gap BUN Creatinine Estim Creat Clear Calc Estimated GFR Glucose Calcium Magnesium Total Bilirubin AST ALT Alkaline Phosphatase Total Protein Albumin Ur Random Sodium < 5 Ur Random Urea 821 Urine Creatinine 102.1 04/05/22 05:25 WBC RBC Hgb Hct MCV MCH MCHC RDW Plt Count MPV Immature Gran % (Auto) Neut % (Auto) Lymph % (Auto) [place] % (Auto) Eos % (Auto) Baso % (Auto) Lymph # (Auto) [place] # (Auto) Eos # (Auto) Baso # (Auto) Abs Immat Gran (auto) Absolute Neuts (auto) Absolute Nucleated RBC Nucleated RBC % Sodium 133 L Potassium 3.9 Chloride 100 Carbon Dioxide 24 Anion Gap 9 BUN 60 H D Creatinine 2.20 H Estim Creat Clear Calc 18 Estimated GFR 22 L Glucose 106 Calcium 7.8 L Magnesium 2.4 H Total Bilirubin 0.9 AST 150 H ALT 85 H Alkaline Phosphatase 154 H Total Protein 6.0 L Albumin 3.1 L Ur Random Sodium Ur Random Urea Urine Creatinine Patient Feedback: Patient satisfied with anesthetic care.
[2022-04-05] MEDS: oxyCODONE HCL (*CRX) 5 MG TAB IR PO ×2 (17:25→21:19)
[2022-04-05] MEDS: ATORVASTATIN 40 MG TABLET BY MOUTH (20:17)
[2022-04-06] VITALS (8 sets, daily range): BP systolic 124–155; BP diastolic 57–88; PULSE 78–102; RESP 16–22; TEMP 36.6; O2SAT 86–96; BMI 10.0
[2022-04-06] MEDS: oxyCODONE HCL (*CRX) 5 MG TAB IR PO ×6 (01:24→21:32)
[2022-04-06] MEDS: ACETAMINOPHEN 500 MG TABLET 1000 MG PO ×4 (05:33→23:52)
[2022-04-06] MEDS: SODIUM CHLORIDE 0.9% IV 1,000 ML 100 ML IV CONT ×2 (05:33→23:55)
[2022-04-06 06:00] LABS: Basophils Percent Auto 0.4 % (0.2-1.2); Eosinophils Absolute Auto 0.1 K/mm3 (0-0.3); Eosinophils Percent Auto 1.4 % (0-4.4); Hematocrit 24.3 % (37.0-47.0); Immature Granulocyte Absolute 0.05 K/mm3 (0.00-0.031); Immature Granulocyte Percent A 0.7 % (0-0.5); Lymphocytes Absolute Auto 0.88 K/mm3 (0.9-3.2); Lymphocytes Percent Auto 12.2 % (18.3-44.2); Mean Corpuscular HGB Conc 32.9 g/dl (32-36); Mean Corpuscular Hemoglobin 29.9 pg (26-34); Mean Corpuscular Volume 90.7 fl (80-100); Mean Platelet Volume 10.1 fl (7.4-10.4); Monocytes Absolute Auto 0.8 K/mm3 (0.1-0.6); Monocytes Percent Auto 11.3 % (2.6-8.5); Neutrophils Absolute Auto 5.3 K/mm3 (1.3-6.7); Platelet Count Result 369 k/mm3 (150-375); Red Blood Count 2.68 M/mm3 (4.2-5.4); Red Cell Distribution Width 13.8 % (11.5-14.5); White Blood Count 7.2 K/mm3 (4.5-10.0)
[2022-04-06 06:27] LABS: Alanine Aminotransferase 36 U/L (6-35); Albumin Level 2.7 g/dL (3.5-5.1); Alkaline Phosphatase 122 U/L (38-126); Anion Gap 5 mmol/L (8-16); Aspartate Amino Transferase 96 U/L (14-36); Bilirubin,Total 1.1 mg/dL (0.2-1.3); Blood Urea Nitrogen 42 mg/dL (7-17); Calcium 7.6 mg/dL (8.4-10.2); Carbon Dioxide 26 mmol/L (22-30); Chloride 109 mmol/L (98-107); Estimated CRCL calculation 23 ml/min; Estimated Glomerular Filt Rate 30; Glucose 96 mg/dL (65-110); Magnesium 2.2 mg/dL (1.6-2.3); Potassium 3.5 mmol/L (3.4-5.0); Sodium 140 mmol/L (137-145); Transferrin 120 mg/dL (206-381)
[2022-04-06 07:28] LABS: Folic Acid 8.1 ng/mL (2.76->20)
[2022-04-06 07:44] LABS: Iron 19 ug/dL (37-170)
[2022-04-06 07:53] LABS: Percent Iron Saturation 11 % (20-50)
--- NOTE | 2022-04-06 08:15 | PCOTNOTE ---
Attempted to see patient this am, however patient sleeping soundly upon entering and unable to arouse.
[2022-04-06] MEDS: FERROUS SULFATE 324 MG TABLET PO ×2 (09:21→17:02)
[2022-04-06] MEDS: amLODIPine BESYLATE 5 MG TABLET BY MOUTH (09:21)
[2022-04-06] MEDS: ENOXAPARIN 30 MG/0.3 ML SYRINGE SUB-Q (09:22)
[2022-04-06] MEDS: NICOTINE (*PBKC) 21 MG PATCH 1 PATCH TRANSDERM (09:22)
[2022-04-06] MEDS: ASPIRIN 81 MG ENTERIC TABLET PO (09:22)
[2022-04-06] MEDS: CLOPIDOGREL BISULFATE 75 MG TABLET PO (09:22)
[2022-04-06] MEDS: SENNA/DOCUSATE SODIUM TABLET 2 TAB PO ×2 (09:22→17:02)
[2022-04-06] MEDS: PROPRANOLOL HCL 10 MG TABLET BY MOUTH ×2 (09:24→20:00)
[2022-04-06] MEDS: polyethylene glycoL 3350 17 GM POWD.PACK PO (09:24)
[2022-04-06] MEDS: FAMOTIDINE 20 MG TABLET PO ×2 (09:24→20:00)
--- NOTE | 2022-04-06 09:45 | P.PNIM_ITS ---
Progress Note: A&P Assessment and Plan (1) Closed fracture of right hip: Qualifiers: Encounter type: initial encounter Qualified Code(s): S72.001A - Fracture of unspecified part of neck of right femur, initial encounter for closed fracture Code(s): S72.001A - Fracture of unspecified part of neck of right femur, initial encounter for closed fracture Status: Acute Assessment and Plan: * Patient presented after a fall. * Right hip a x-ray showed communicated inter trochanter fracture of the prox imal right femur * orthopedics is consulted * surgical procedures scheduled for today * Diet advanced * pain medications on board, increased dose to 5mg on the scheduled and PRN oxycodone * Added morphine 0.5mg IV for 7-10 pain * antiemetics on board * postop care per Orthopedics * DVT prophylaxis per Orthopedics * PT and OT post op (2) CHAD (acute kidney injury): Code(s): N17.9 - Acute kidney failure, unspecified Status: Acute Assessment and Plan: * BUN and creatinine elevated upon arrival at 67 /3.30 * current BUN creatinine 42/1.70 * Creatinine was 1.55 in November * Renal ultrasound does not appear to have any abnormalities * Trend down * IV Fluids stopped IV fluids at this time * Trend labs * Avoid nephrotoxic medications * Urine studies Na <5, Urea 821, Cr 102.1, Fena indicated pre renal * Seems to be more likely dehydration * Consider Nephro if improvement is not continued (3) CKD (chronic kidney disease) stage 3, GFR 30-59 ml/min: Code(s): N18.30 - Chronic kidney disease, stage 3 unspecified Status: Acute Assessment and Plan: * Appears to be in stage 3 * Continue to trend labs * See above (4) Hyperlipidemia: Code(s): E78.5 - Hyperlipidemia, unspecified Status: Acute Assessment and Plan: -continue with atorvastatin -monitor liver functions (5) Hypertension: Code(s): I10 - Essential (primary) hypertension Status: Acute Assessment and Plan: * Current BP is 127/61 * Continue home amlodipine * Trend BP * Adjust therapy as indicated (6) Nicotine dependence: Code(s): F17.200 - Nicotine dependence, unspecified, uncomplicated Status: Acute Assessment and Plan: -smoking cessation reiterated for another 5 mins -the patient is agreeable to nicotine patch. -add gum (7) History of CVA (cerebrovascular accident): Code(s): Z86.73 - Personal history of transient ischemic attack (TIA), and cerebral infarction without residual deficits Status: Acute Assessment and Plan: -Only residual she has is essential tremors. -Continue propanolol -Hold plavix and aspirin for surgical intervention (8) Fall: Code(s): W19.XXXA - Unspecified fall, initial encounter Status: Acute Assessment and Plan: * Ground level fall, Velcro from shoes noted to have stuck to the carpet * Hip fracture * Denies any other reason for fall * CHAD noted, UA does not appear to be infectious * PT/OT when appropriate (9) Anemia: Code(s): D64.9 - Anemia, unspecified Status: Acute Assessm
--- NOTE | 2022-04-06 09:45 | PM.IMPN ---
Progress Note: A&P Assessment and Plan (1) Closed fracture of right hip: Qualifiers: Encounter type: initial encounter Qualified Code(s): S72.001A - Fracture of unspecified part of neck of right femur, initial encounter for closed fracture Code(s): S72.001A - Fracture of unspecified part of neck of right femur, initial encounter for closed fracture Status: Acute Assessment and Plan: Patient presented after a fall. Right hip a x-ray showed communicated inter trochanter fracture of the proximal right femur orthopedics is consulted surgical procedures scheduled for today Diet advanced pain medications on board, increased dose to 5mg on the scheduled and PRN oxycodone Added morphine 0.5mg IV for 7-10 pain antiemetics on board postop care per Orthopedics DVT prophylaxis per Orthopedics PT and OT post op (2) CHAD (acute kidney injury): Code(s): N17.9 - Acute kidney failure, unspecified Status: Acute Assessment and Plan: BUN and creatinine elevated upon arrival at 67 /3.30 current BUN creatinine 42/1.70 Creatinine was 1.55 in November Renal ultrasound does not appear to have any abnormalities Trend down IV Fluids stopped IV fluids at this time Trend labs Avoid nephrotoxic medications Urine studies Na <5, Urea 821, Cr 102.1, Fena indicated pre renal Seems to be more likely dehydration Consider Nephro if improvement is not continued (3) CKD (chronic kidney disease) stage 3, GFR 30-59 ml/min: Code(s): N18.30 - Chronic kidney disease, stage 3 unspecified Status: Acute Assessment and Plan: Appears to be in stage 3 Continue to trend labs See above (4) Hyperlipidemia: Code(s): E78.5 - Hyperlipidemia, unspecified Status: Acute Assessment and Plan: -continue with atorvastatin -monitor liver functions (5) Hypertension: Code(s): I10 - Essential (primary) hypertension Status: Acute Assessment and Plan: Current BP is 127/61 Continue home amlodipine Trend BP Adjust therapy as indicated (6) Nicotine dependence: Code(s): F17.200 - Nicotine dependence, unspecified, uncomplicated Status: Acute Assessment and Plan: -smoking cessation reiterated for another 5 mins -the patient is agreeable to nicotine patch. -add gum (7) History of CVA (cerebrovascular accident): Code(s): Z86.73 - Personal history of transient ischemic attack (TIA), and cerebral infarction without residual deficits Status: Acute Assessment and Plan: -Only residual she has is essential tremors. -Continue propanolol -Hold plavix and aspirin for surgical intervention (8) Fall: Code(s): W19.XXXA - Unspecified fall, initial encounter Status: Acute Assessment and Plan: Ground level fall, Velcro from shoes noted to have stuck to the carpet Hip fracture Denies any other reason for fall CHAD noted, UA does not appear to be infectious PT/OT when appropriate (9) Anemia: Code(s): D64.9 - Anemia, unspecified Status: Acute Assessment and Plan: H/H 8.0/24.3 anemia labs iron 19, TIBC 174, % sat 11, Transferrin 120, Ferritin 225, B12 530, Folate 8.1 Start Ferrous sulfate 325mg PO BID supplement as indicated Transfuse as indicated (10) Uncontrolled pain: Code(s): R52 - Pain, unspecified Status: Acute Assessment and Plan: Pain is very uncontrolled Did increase current medications and added IV morphine continue to rate and adjust pain medications accordingly Plan Postop DVT prophylaxis per Ortho. Time Spent With Patient Time: 30 minutes working with the patient and OT. 15 minutes updating family. 10 mins starting IV Time with patient: Дмитрий
[2022-04-06] MEDS: MORPHINE SULFATE (*CRX) 2 MG/ML INJ 0.5 MG IV PUSH ×2 (10:45→22:08)
--- NOTE | 2022-04-06 12:43 | P.PNNP_ITS ---
Progress Note: A&P Assessment and Plan (1) CHAD (acute kidney injury): Code(s): N17.9 - Acute kidney failure, unspecified Status: Acute Assessment and Plan: * resolved (if not resolving) * suspect due to volume depletion/prerenal azotemia * evaluation to date: * urine electrolytes prerenal * renal ultrasound normal * UA with protein and blood * continue gentle IVF hydration * follow repeat labs and UOP (2) Stage 3b chronic kidney disease: Code(s): N18.32 - Chronic kidney disease, stage 3b Status: Chronic Assessment and Plan: * baseline creatinine runs around 1.4 - 1.7mg/dl from records here at [facility] * presumably due to HTN, vascular disease, and age-related change (3) Closed fracture of right hip: Qualifiers: Encounter type: initial encounter Qualified Code(s): S72.001A - Fracture of unspecified part of neck of right femur, initial encounter for closed fracture Code(s): S72.001A - Fracture of unspecified part of neck of right femur, initial encounter for closed fracture Status: Acute Assessment and Plan: * Orthopedic following * s/p ORIF of right intertrochanteric hip fracture * PT/OT as tolerated * pain control (4) Anemia: Code(s): D64.9 - Anemia, unspecified Status: Acute Assessment and Plan: * due to recent operative intervention and dilution from IVFs * follow trend of H/H (5) Hypertension: Code(s): I10 - Essential (primary) hypertension Status: Acute Assessment and Plan: * reasonable control; (fluctuations could be due to pain) * follow trend of hemodynamics Will continue to follow. Subjective Date/time seen: 04/06/22 12:43 No new issues or problems voiced at this time; renal function improving with current interventions; pain control is still a bit of an issue but medications do seem to help; no other acute issues/events overnight or earlier this morning. Exam Narrative: General: elderly female in NAD Heart: normal S1 and S2; no rub Lungs: clear to auscultation Abdomen: soft, nontender, nondistended, positive bowel sounds Extremities: no cyanosis or clubbing; no edema Skin: warm and intact Objective Data Vital Signs Vital Signs: Vital Signs Temp Pulse Resp BP Pulse Ox O2 Del Method O2 Flow Rate 04/06/22 08:00 89 L Nasal Cannula 1 04/06/22 09:24 78 04/06/22 05:07 97.9 F 85 16 155/67 H 96 04/05/22 20:17 98 04/05/22 19:33 98 F 96 20 153/66 H 92 04/05/22 14:20 98.5 F 88 18 127/61 93 Intake/Output Intake/Output: Intake & Output 04/03/22 04/04/22 04/05/22 04/06/22 23:59 23:59 23:59 23:59 Intake Total 400 1190 1500 1587 Output Total 1000 1730 3550 1100 Balance -600 540 -2051 487 Meds/Results Medications: Active Medications Generic Name Dose Route Start Last Admin Trade Name Freq PRN Reason Stop Dose Admin Acetaminophen 1,000 mg 04/04/22 18:00 04/06/22 05:33 Acetaminophen 500 Mg Tablet PO 1,000 mg Q6HR ROSIE Administration Alprazolam 0.125 mg 04/05/22 14:45 Alprazolam (*Crx) 0.125 Mg Tablet PO TID PRN
--- NOTE | 2022-04-06 12:43 | PM.PNNEP ---
Progress Note: A&P Assessment and Plan (1) CHAD (acute kidney injury): Code(s): N17.9 - Acute kidney failure, unspecified Status: Acute Assessment and Plan: resolved (if not resolving) suspect due to volume depletion/prerenal azotemia evaluation to date: urine electrolytes prerenal renal ultrasound normal UA with protein and blood continue gentle IVF hydration follow repeat labs and UOP (2) Stage 3b chronic kidney disease: Code(s): N18.32 - Chronic kidney disease, stage 3b Status: Chronic Assessment and Plan: baseline creatinine runs around 1.4 - 1.7mg/dl from records here at [facility] presumably due to HTN, vascular disease, and age-related change (3) Closed fracture of right hip: Qualifiers: Encounter type: initial encounter Qualified Code(s): S72.001A - Fracture of unspecified part of neck of right femur, initial encounter for closed fracture Code(s): S72.001A - Fracture of unspecified part of neck of right femur, initial encounter for closed fracture Status: Acute Assessment and Plan: Orthopedic following s/p ORIF of right intertrochanteric hip fracture PT/OT as tolerated pain control (4) Anemia: Code(s): D64.9 - Anemia, unspecified Status: Acute Assessment and Plan: due to recent operative intervention and dilution from IVFs follow trend of H/H (5) Hypertension: Code(s): I10 - Essential (primary) hypertension Status: Acute Assessment and Plan: reasonable control; (fluctuations could be due to pain) follow trend of hemodynamics Will continue to follow. Subjective Date/time seen: 04/06/22 12:43 No new issues or problems voiced at this time; renal function improving with current interventions; pain control is still a bit of an issue but medications do seem to help; no other acute issues/events overnight or earlier this morning. Exam Narrative: General: elderly female in NAD Heart: normal S1 and S2; no rub Lungs: clear to auscultation Abdomen: soft, nontender, nondistended, positive bowel sounds Extremities: no cyanosis or clubbing; no edema Skin: warm and intact Objective Data Vital Signs Vital Signs: Vital Signs Temp Pulse Resp BP Pulse Ox O2 Del Method O2 Flow Rate 04/06/22 08:00 89 L Nasal Cannula 1 04/06/22 09:24 78 04/06/22 05:07 97.9 F 85 16 155/67 H 96 04/05/22 20:17 98 04/05/22 19:33 98 F 96 20 153/66 H 92 04/05/22 14:20 98.5 F 88 18 127/61 93 Intake/Output Intake/Output: Intake & Output 04/03/22 04/04/22 04/05/22 04/06/22 23:59 23:59 23:59 23:59 Intake Total 400 1190 1500 1587 Output Total 1000 1730 3550 1100 Balance -600 -540 -2050 487 Meds/Results Medications: Active Medications Generic Name Dose Route Start Last Admin Trade Name Freq PRN Reason Stop Dose Admin Acetaminophen 1,000 mg 04/04/22 18:00 04/06/22 05:33 Acetaminophen 500 Mg Tablet PO 1,000 mg Q6HR ROSIE Administration Alprazolam 0.125 mg 04/05/22 14:45 Alprazolam (*Crx) 0.125 Mg Tablet PO TID PRN Anxiety Amlodipine Besylate 5 mg 04/04/22 09:00 04/06/22 09:21 Amlodipine Besylate 5 Mg Tablet BY MOUTH 5 mg DAILY ROSIE Administration Aspirin 81 mg 04/04/22 09:00 04/06/22 09:22 Aspirin 81 Mg Enteric Tablet PO 81 mg DAILY ROSIE Administration Atorvastatin Calcium 40 mg 04/03/22 21:00 04/05/22 20:17 Atorvastatin 40 Mg Tablet BY MOUTH 40 mg HS ROSIE Administration Clopidogrel Bisulfate 75 mg 04/05/22 09:00 04/06/22 09:22 Clopidogrel Bisulfate 75 Mg Tablet PO 75 mg QAM [facility] Administration Enoxaparin Sodium 30 mg 04/05/22 09:00 04/06/22 09:22 Enoxaparin 30 Mg/0.3 Ml Syringe SUB-Q 30 mg DAILY ROSIE Administration Ergocalciferol 50,000 units 04/11/22 09:00 Ergocalciferol 50,000 Units Capsule PO WEEKLY [facility] Famotidine
[2022-04-06] MEDS: FLUTICASONE PROPIONATE 0.05% NA SPR 16 GM BTL (*BKC) 1 SPRAY NASAL ×2 (13:00→20:00)
[2022-04-06] MEDS: LORATADINE 10 MG TABLET PO (13:00)
--- NOTE | 2022-04-06 13:47 | PM.PNORT ---
Progress Note: A&P Assessment and Plan (1) Intertrochanteric fracture of right hip: Code(s): S72.141A - Displaced intertrochanteric fracture of right femur, initial encounter for closed fracture Status: Acute Assessment and Plan: Patient is postoperative day 2. After internal fixation of right 4 part intertrochanteric hip fracture. Her hemoglobin this morning is 8.0. Her hemoglobin immediately before going back to the operating room was 8.8. She has had less than the expected drop we will continue to monitor this as it may go down further tomorrow. She has stable blood pressure heart rate oxygenation. Platelets [id number]. Her creatinine is now down to 1.7 which is approximately her baseline much improved compared with 3.3 on admission. Her creatinine clearance is 23 mL/min therefore we will continue with the renal dose Lovenox for DVT prophylaxis. She is also on Plavix for prophylaxis against recurrent stroke. Her 25 OH vitamin-D level was low at 17.5 and we will supplement. She is alert and comfortable sitting in reclining type chair. No deformity right leg rotation is normal. She has rather extensive ecchymosis in the lateral thigh and around the knee. Her effusion in the right knee is less I would call it mild. She does have moderate soft tissue swelling in the thigh and knee. She states that her right knee feels much better. She denies lightheadedness. She moves her foot up and down quite easily denies numbness or tingling in the right foot. CT scan of right knee shows small effusion moderate arthritis and loose bodies but no evidence of fracture. With her hemoglobin of 8 no symptoms of anemia and stable vital signs, I do not think we need to transfuse but it drops below 8 tomorrow I would recommend transfusion using 8 is the trigger because of her history of strokes. Subjective Subjective Date/Time Seen: 04/06/22 13:47 Objective Data Vital Signs Vital Signs: Vital Signs - 24 hr 04/05/22 14:20 04/05/22 19:33 04/05/22 20:17 Temperature 36.9 C 36.6 C Pulse Rate 88 96 98 Respiratory Rate 18 20 Blood Pressure 127/61 153/66 H Pulse Oximetry 93 92 Oxygen Delivery Oxygen Flow Rate 04/06/22 05:07 04/06/22 09:24 04/06/22 08:00 Temperature 36.6 C Pulse Rate 85 78 Respiratory Rate 16 Blood Pressure 155/67 H Pulse Oximetry 96 89 L Oxygen Delivery Nasal Cannula Oxygen Flow Rate 1 Intake/Output Intake/Output: Intake & Output 04/03/22 04/04/22 04/05/22 04/06/22 23:59 23:59 23:59 23:59 Intake Total 400 1190 1500 1587 Output Total 1000 1730 3550 1100 Balance -600 -540 -2050 487 Meds/Results Medications: Active Medications Generic Name Dose Route Start Last Admin Trade Name Freq PRN Reason Stop Dose Admin Acetaminophen 1,000 mg 04/04/22 18:00 04/06/22 13:00 Acetaminophen 500 Mg Tablet PO 1,000 mg Q6HR ROSIE Administration Alprazolam 0.125 mg 04/05/22 14:45 Alprazolam (*Crx) 0.125 Mg Tablet PO TID PRN Anxiety Amlodipine Besylate 5 mg 04/04/22 09:00 04/06/22 09:21 Amlodipine Besylate 5 Mg Tablet BY MOUTH 5 mg DAILY ROSIE Administration Aspirin 81 mg 04/04/22 09:00 04/06/22 09:22 Aspirin 81 Mg Enteric Tablet PO 81 mg DAILY ROSIE Administration Atorvastatin Calcium 40 mg 04/03/22 21:00 04/05/22 20:17 Atorvastatin 40 Mg Tablet BY MOUTH 40 mg HS ROSIE Administration Clopidogrel Bisulfate 75 mg 04/05/22 09:00 04/06/22 09:22 Clopidogrel Bisulfate 75 Mg Tablet PO 75 mg QAM ROSIE Administration Enoxaparin Sodium 30 mg 04/05/22 09:00 04/06/22 09:22 Enoxaparin 30 Mg/0.3 Ml Syringe SUB-Q 30 mg DAILY ROSIE Administration Ergocalciferol 50,000 units 04/11/22 09:00 Ergocalciferol 50,000 Units Capsule PO WEEKLY ROSIE Famotidine 20 mg 04/04/22 21:00 04/06/22 09:24 Famotidine 20 Mg Tablet PO 20 mg Q12HR ROSIE Administration Ferrous Sulfate 324 mg 04/06/22 08:00 04/06/22
[2022-04-06 14:51] LABS: Osmolality, Urine 453 mOsm/kg (50-1200)
[2022-04-06] MEDS: ALPRAZolam (*CRX) 0.125 MG TABLET PO (19:59)
[2022-04-06] MEDS: ATORVASTATIN 40 MG TABLET BY MOUTH (20:00)
[2022-04-07] VITALS (10 sets, daily range): BP systolic 118–144; BP diastolic 52–74; PULSE 88–101; RESP 18–20; TEMP 36.6–37.2; O2SAT 91–96
[2022-04-07] MEDS: oxyCODONE HCL (*CRX) 5 MG TAB IR PO ×6 (01:36→21:07)
[2022-04-07] MEDS: MORPHINE SULFATE (*CRX) 2 MG/ML INJ 0.5 MG IV PUSH (04:49)
[2022-04-07 05:41] LABS: Alanine Aminotransferase 24 U/L (6-35); Albumin Level 2.6 g/dL (3.5-5.1); Alkaline Phosphatase 111 U/L (38-126); Anion Gap 3 mmol/L (8-16); Aspartate Amino Transferase 64 U/L (14-36); Bilirubin,Total 0.9 mg/dL (0.2-1.3); Blood Urea Nitrogen 37 mg/dL (7-17); Calcium 7.7 mg/dL (8.4-10.2); Carbon Dioxide 26 mmol/L (22-30); Chloride 111 mmol/L (98-107); Estimated CRCL calculation 24 ml/min; Estimated Glomerular Filt Rate 32; Glucose 96 mg/dL (65-110); Magnesium 1.9 mg/dL (1.6-2.3); Potassium 3.7 mmol/L (3.4-5.0); Sodium 140 mmol/L (137-145)
[2022-04-07] MEDS: ACETAMINOPHEN 500 MG TABLET 1000 MG PO ×3 (05:46→18:05)
[2022-04-07 05:53] LABS: Basophils Percent Auto 0.4 % (0.2-1.2); Eosinophils Absolute Auto 0.1 K/mm3 (0-0.3); Eosinophils Percent Auto 1.6 % (0-4.4); Hemoglobin 7.3 g/dL (12.0-15.0); Immature Granulocyte Absolute 0.05 K/mm3 (0.00-0.031); Immature Granulocyte Percent A 0.6 % (0-0.5); Lymphocytes Absolute Auto 1.16 K/mm3 (0.9-3.2); Lymphocytes Percent Auto 14.5 % (18.3-44.2); Mean Corpuscular HGB Conc 31.7 g/dl (32-36); Mean Corpuscular Hemoglobin 29.3 pg (26-34); Mean Corpuscular Volume 92.4 fl (80-100); Mean Platelet Volume 10.6 fl (7.4-10.4); Monocytes Absolute Auto 0.8 K/mm3 (0.1-0.6); Monocytes Percent Auto 9.6 % (2.6-8.5); Neutrophils Absolute Auto 5.9 K/mm3 (1.3-6.7); Neutrophils Percent Auto 73.3 % (45.5-73.1); Platelet Count Result 403 k/mm3 (150-375); Red Blood Count 2.49 M/mm3 (4.2-5.4); Red Cell Distribution Width 14.3 % (11.5-14.5)
[2022-04-07] MEDS: NICOTINE (*PBKC) 21 MG PATCH 1 PATCH TRANSDERM (08:13)
[2022-04-07] MEDS: polyethylene glycoL 3350 17 GM POWD.PACK PO (08:13)
[2022-04-07] MEDS: SENNA/DOCUSATE SODIUM TABLET 2 TAB PO ×2 (08:14→16:08)
[2022-04-07] MEDS: ASPIRIN 81 MG ENTERIC TABLET PO (08:14)
[2022-04-07] MEDS: FAMOTIDINE 20 MG TABLET PO ×2 (08:14→21:05)
[2022-04-07] MEDS: FERROUS SULFATE 324 MG TABLET PO ×2 (08:14→16:07)
[2022-04-07] MEDS: PROPRANOLOL HCL 10 MG TABLET BY MOUTH ×2 (08:14→21:05)
[2022-04-07] MEDS: FLUTICASONE PROPIONATE 0.05% NA SPR 16 GM BTL (*BKC) 1 SPRAY NASAL ×2 (08:14→21:05)
[2022-04-07] MEDS: amLODIPine BESYLATE 5 MG TABLET BY MOUTH (08:15)
[2022-04-07] MEDS: LORATADINE 10 MG TABLET PO (08:15)
[2022-04-07] MEDS: CLOPIDOGREL BISULFATE 75 MG TABLET PO (08:15)
[2022-04-07] MEDS: ENOXAPARIN 30 MG/0.3 ML SYRINGE SUB-Q (08:15)
[2022-04-07] MEDS: ALPRAZolam (*CRX) 0.125 MG TABLET PO ×2 (08:17→18:05)
--- NOTE | 2022-04-07 09:30 | P.PNIM_ITS ---
Progress Note: A&P Assessment and Plan (1) Closed fracture of right hip: Qualifiers: Encounter type: initial encounter Qualified Code(s): S72.001A - Fracture of unspecified part of neck of right femur, initial encounter for closed fracture Code(s): S72.001A - Fracture of unspecified part of neck of right femur, initial encounter for closed fracture Status: Acute Assessment and Plan: * Patient presented after a fall. * Right hip a x-ray showed communicated inter trochanter fracture of the prox imal right femur * orthopedics is consulted * surgical procedures scheduled for today * Diet advanced * pain medications on board, increased dose to 5mg on the scheduled and PRN oxycodone * Added morphine 0.5mg IV for 7-10 pain * antiemetics on board * postop care per Orthopedics * DVT prophylaxis per Orthopedics * PT and OT post op (2) Anemia: Code(s): D64.9 - Anemia, unspecified Status: Acute Assessment and Plan: * H/H 7.3/23.0 * anemia labs iron 19, TIBC 174, % sat 11, Transferrin 120, Ferritin 225, B12 530, Folate 8.1 * Start Ferrous sulfate 325mg PO BID * supplement as indicated * Transfuse as indicated * One unit PRBC given 04/07/22 * Get labs one hour post infusion (3) Uncontrolled pain: Code(s): R52 - Pain, unspecified Status: Acute Assessment and Plan: * Pain is very uncontrolled * Did increase current medications and added IV morphine * continue to rate and adjust pain medications accordingly * Appears to be better today with pain score of 3/10 (4) CHAD (acute kidney injury): Code(s): N17.9 - Acute kidney failure, unspecified Status: Acute Assessment and Plan: * BUN and creatinine elevated upon arrival at 67 /3.30 * current BUN creatinine 37/1.60 * Creatinine was 1.55 in November * Renal ultrasound does not appear to have any abnormalities * Trend down * IV Fluids stopped IV fluids at this time * Trend labs * Avoid nephrotoxic medications * Urine studies Na <5, Urea 821, Cr 102.1, Fena indicated pre renal * Seems to be more likely dehydration * Consider Nephro if improvement is not continued * Seems resolved, continue to trend labs (5) CKD (chronic kidney disease) stage 3, GFR 30-59 ml/min: Code(s): N18.30 - Chronic kidney disease, stage 3 unspecified Status: Acute Assessment and Plan: * Appears to be in stage 3 * Continue to trend labs * See above (6) Hyperlipidemia: Code(s): E78.5 - Hyperlipidemia, unspecified Status: Acute Assessment and Plan: -continue with atorvastatin -monitor liver functions (7) Hypertension: Code(s): I10 - Essential (primary) hypertension Status: Acute Assessment and Plan: * Current BP is 141/72 * Continue home amlodipine * Trend BP * Adjust therapy as indicated (8) Nicotine dependence: Code(s): F17.200 - Nicotine dependence, unspecified, uncomplicated Status: Acute Assessment and Plan: -smoking cessation reiterated for another 5 mins -the patient is agreeable to nicotine patch. -add gum (9) History of CVA (cerebrovascul
--- NOTE | 2022-04-07 09:30 | PM.IMPN ---
Progress Note: A&P Assessment and Plan (1) Closed fracture of right hip: Qualifiers: Encounter type: initial encounter Qualified Code(s): S72.001A - Fracture of unspecified part of neck of right femur, initial encounter for closed fracture Code(s): S72.001A - Fracture of unspecified part of neck of right femur, initial encounter for closed fracture Status: Acute Assessment and Plan: Patient presented after a fall. Right hip a x-ray showed communicated inter trochanter fracture of the proximal right femur orthopedics is consulted surgical procedures scheduled for today Diet advanced pain medications on board, increased dose to 5mg on the scheduled and PRN oxycodone Added morphine 0.5mg IV for 7-10 pain antiemetics on board postop care per Orthopedics DVT prophylaxis per Orthopedics PT and OT post op (2) Anemia: Code(s): D64.9 - Anemia, unspecified Status: Acute Assessment and Plan: H/H 7.3/23.0 anemia labs iron 19, TIBC 174, % sat 11, Transferrin 120, Ferritin 225, B12 530, Folate 8.1 Start Ferrous sulfate 325mg PO BID supplement as indicated Transfuse as indicated One unit PRBC given 04/07/22 Get labs one hour post infusion (3) Uncontrolled pain: Code(s): R52 - Pain, unspecified Status: Acute Assessment and Plan: Pain is very uncontrolled Did increase current medications and added IV morphine continue to rate and adjust pain medications accordingly Appears to be better today with pain score of 3/10 (4) CHAD (acute kidney injury): Code(s): N17.9 - Acute kidney failure, unspecified Status: Acute Assessment and Plan: BUN and creatinine elevated upon arrival at 67 /3.30 current BUN creatinine 37/1.60 Creatinine was 1.55 in November Renal ultrasound does not appear to have any abnormalities Trend down IV Fluids stopped IV fluids at this time Trend labs Avoid nephrotoxic medications Urine studies Na <5, Urea 821, Cr 102.1, Fena indicated pre renal Seems to be more likely dehydration Consider Nephro if improvement is not continued Seems resolved, continue to trend labs (5) CKD (chronic kidney disease) stage 3, GFR 30-59 ml/min: Code(s): N18.30 - Chronic kidney disease, stage 3 unspecified Status: Acute Assessment and Plan: Appears to be in stage 3 Continue to trend labs See above (6) Hyperlipidemia: Code(s): E78.5 - Hyperlipidemia, unspecified Status: Acute Assessment and Plan: -continue with atorvastatin -monitor liver functions (7) Hypertension: Code(s): I10 - Essential (primary) hypertension Status: Acute Assessment and Plan: Current BP is 141/72 Continue home amlodipine Trend BP Adjust therapy as indicated (8) Nicotine dependence: Code(s): F17.200 - Nicotine dependence, unspecified, uncomplicated Status: Acute Assessment and Plan: -smoking cessation reiterated for another 5 mins -the patient is agreeable to nicotine patch. -add gum (9) History of CVA (cerebrovascular accident): Code(s): Z86.73 - Personal history of transient ischemic attack (TIA), and cerebral infarction without residual deficits Status: Acute Assessment and Plan: -Only residual she has is essential tremors. -Continue propanolol -Hold plavix and aspirin for surgical intervention (10) Fall: Code(s): W19.XXXA - Unspecified fall, initial encounter Status: Acute Assessment and Plan: Ground level fall, Velcro from shoes noted to have stuck to the carpet Hip fracture Denies any other reason for fall CHAD noted, UA does not appear to be infectious PT/OT when appropriate Plan Postop DVT prophylax
--- NOTE | 2022-04-07 10:13 | PM.PNORT ---
Progress Note: A&P Assessment and Plan (1) Intertrochanteric fracture of right hip: Code(s): S72.141A - Displaced intertrochanteric fracture of right femur, initial encounter for closed fracture Status: Acute Assessment and Plan: Patient is postoperative day 3. After open reduction internal fixation of comminuted intertrochanteric 4 part proximal femur fracture. Her hemoglobin today is 7.3 down from 8.8 preoperatively. This is the expected drop in hemoglobin. Dr. Meier has already ordered transfusion of 1 unit packed red blood cells which is indicated particularly given her history of stroke and smoking. I will order a CBC for the morning. Her creatinine remains stable at 1.6 creatinine clearance 24. She is on renal dose Lovenox for DVT prophylaxis as well as the Plavix for prophylaxis against stroke. Patient is alert and pleasant sitting in the chair. She is not having any pain at rest. I have discussed with her that a unit of blood has been ordered for her and she will be receiving that later this morning. She had no other requests. If her hemoglobin is above 8 tomorrow and she remains stable I think she would be ready for transfer to rehab facility from an orthopedic standpoint. Subjective Subjective Date/Time Seen: 04/07/22 10:13 Objective Data Vital Signs Vital Signs: Vital Signs - 24 hr 04/06/22 14:00 04/06/22 20:00 04/06/22 21:44 Temperature 36.6 C 36.6 C Pulse Rate 99 102 H 100 Respiratory Rate 18 22 H Blood Pressure 124/57 L 134/88 Pulse Oximetry 93 94 Oxygen Delivery Oxygen Flow Rate 04/06/22 21:25 04/06/22 21:45 04/07/22 06:00 Temperature 37.2 C Pulse Rate 95 Respiratory Rate 20 Blood Pressure 141/72 H Pulse Oximetry 86 L 94 94 Oxygen Delivery Room Air Nasal Cannula Oxygen Flow Rate 2 04/07/22 08:14 04/07/22 08:00 Temperature Pulse Rate 95 Respiratory Rate Blood Pressure Pulse Oximetry 94 Oxygen Delivery Nasal Cannula Oxygen Flow Rate 2 Intake/Output Intake/Output: Intake & Output 04/04/22 04/05/22 04/06/22 04/07/22 23:59 23:59 23:59 23:59 Intake Total 1190 1500 2929 Output Total 1730 9290 5742 500 Balance -540 -2050 -996 -346 Meds/Results Medications: Active Medications Generic Name Dose Route Start Last Admin Trade Name Rebecca PRN Reason Stop Dose Admin Acetaminophen 1,000 mg 04/04/22 18:00 04/07/22 05:46 Acetaminophen 500 Mg Tablet PO 1,000 mg Q6HR ROISE Administration Alprazolam 0.125 mg 04/05/22 14:45 04/07/22 08:17 Alprazolam (*Crx) 0.125 Mg Tablet PO 0.125 mg TID PRN Administration Anxiety Amlodipine Besylate 5 mg 04/04/22 09:00 04/07/22 08:15 Amlodipine Besylate 5 Mg Tablet BY MOUTH 5 mg DAILY ROSIE Administration Aspirin 81 mg 04/04/22 09:00 04/07/22 08:14 Aspirin 81 Mg Enteric Tablet PO 81 mg DAILY ROSIE Administration Atorvastatin Calcium 40 mg 04/03/22 21:00 04/06/22 20:00 Atorvastatin 40 Mg Tablet BY MOUTH 40 mg HS ROSIE Administration Clopidogrel Bisulfate 75 mg 04/05/22 09:00 04/07/22 08:15 Clopidogrel Bisulfate 75 Mg Tablet PO 75 mg QAM ROSIE Administration Enoxaparin Sodium 30 mg 04/05/22 09:00 04/07/22 08:15 Enoxaparin 30 Mg/0.3 Ml Syringe SUB-Q 30 mg DAILY ROSIE Administration Ergocalciferol 50,000 units 04/11/22 09:00 Ergocalciferol 50,000 Units Capsule PO WEEKLY ROSIE Famotidine 20 mg 04/04/22 21:00 04/07/22 08:14 Famotidine 20 Mg Tablet PO 20 mg Q12HR RSOIE Administration Ferrous Sulfate 324 mg 04/06/22 08:00 04/07/22 08:14 Ferrous Sulfate 324 Mg Tablet PO 324 mg BIDWM ROSIE Administration Fluticasone Propionate 1 spray 04/06/22 11:00 04/07/22 08:14 Fluticasone Propionate 0.05% Na Spr 16 Gm Btl (*Bkc) NASAL 1 spray Q12HR ROSIE Administration Sodium Chloride 250 mls @ 30 mls/hr 04/07/22 10:00 Normal Saline Iv IV CONT 04/07/22 18:19 .Q8H20M STA Loratadine 10 mg
[2022-04-07] MEDS: SODIUM CHLORIDE 0.9% IV 250 ML 30 ML IV CONT (10:22)
--- NOTE | 2022-04-07 13:06 | PM.PNNEP ---
Progress Note: A&P Assessment and Plan (1) CHAD (acute kidney injury): Code(s): N17.9 - Acute kidney failure, unspecified Status: Acute Assessment and Plan: resolved (if not resolving) suspect due to volume depletion/prerenal azotemia evaluation to date: urine electrolytes prerenal renal ultrasound normal UA with protein and blood off IVFs follow repeat labs and UOP (2) Stage 3b chronic kidney disease: Code(s): N18.32 - Chronic kidney disease, stage 3b Status: Chronic Assessment and Plan: baseline creatinine runs around 1.4 - 1.7mg/dl from records here at [facility] presumably due to HTN, vascular disease, and age-related change (3) Closed fracture of right hip: Qualifiers: Encounter type: initial encounter Qualified Code(s): S72.001A - Fracture of unspecified part of neck of right femur, initial encounter for closed fracture Code(s): S72.001A - Fracture of unspecified part of neck of right femur, initial encounter for closed fracture Status: Acute Assessment and Plan: Orthopedic following s/p ORIF of right intertrochanteric hip fracture PT/OT as tolerated pain control (4) Anemia: Code(s): D64.9 - Anemia, unspecified Status: Acute Assessment and Plan: due to recent operative intervention and dilution from IVFs PRBC transfusion today follow trend of H/H (5) Hypertension: Code(s): I10 - Essential (primary) hypertension Status: Acute Assessment and Plan: reasonable control; (fluctuations could be due to pain) follow trend of hemodynamics Not opposed to discharge from renal perspective if otherwise medically stable. Will continue to follow. Subjective Date/time seen: 04/07/22 13:06 Seems to be doing reasonably well at the time of my visit; working with PT/OT as tolerated and pain control seems to be steadily improving with current medication therapy; PRBC transfusion today per Ortho recommendations; no issues/events overnight or earlier this morning. Exam Narrative: General: elderly female in NAD Heart: normal S1 and S2; no rub Lungs: clear to auscultation Abdomen: soft, nontender, nondistended, positive bowel sounds Extremities: no cyanosis or clubbing; no edema Skin: no rash Objective Data Vital Signs Vital Signs: Vital Signs Temp Pulse Resp BP Pulse Ox O2 Del Method O2 Flow Rate 04/07/22 12:20 98.7 F 101 H 18 123/57 L 93 04/07/22 12:12 92 Room Air 04/07/22 12:00 98.1 F 96 20 130/52 L 92 04/07/22 08:00 94 Nasal Cannula 2 04/07/22 08:14 95 04/07/22 06:00 98.9 F 95 20 141/72 H 94 04/06/22 21:45 94 Nasal Cannula 2 04/06/22 21:25 86 L Room Air 04/06/22 21:44 97.9 F 100 22 H 134/88 94 04/06/22 20:00 102 H Intake/Output Intake/Output: Intake & Output 04/04/22 04/05/22 04/06/22 04/07/22 23:59 23:59 23:59 23:59 Intake Total 1190 1500 2929 480 Output Total 1730 3550 3125 950 Balance -540 -2050 -196 -470 Meds/Results Medications: Active Medications Generic Name Dose Route Start Last Admin Trade Name Rebecca PRN Reason Stop Dose Admin Acetaminophen 1,000 mg 04/04/22 18:00 04/07/22 12:12 Acetaminophen 500 Mg Tablet PO 1,000 mg Q6HR ROSIE Administration Alprazolam 0.125 mg 04/05/22 14:45 04/07/22 08:17 Alprazolam (*Crx) 0.125 Mg Tablet PO 0.125 mg TID PRN Administration Anxiety Amlodipine Besylate 5 mg 04/04/22 09:00 04/07/22 08:15 Amlodipine Besylate 5 Mg Tablet BY MOUTH 5 mg DAILY ROSIE Administration Aspirin 81 mg 04/04/22 09:00 04/07/22 08:14 Aspirin 81 Mg Enteric Tablet PO 81 mg DAILY ROSIE Administration Atorvastatin Calcium 40 mg 04/03/22 21:00 04/06/22 20:00 Atorvastatin 40 Mg Tablet BY MOUTH 40 mg HS ROSIE Administration Clopidogrel Bisulfate 75 mg 04/05/22 09:00 04/07/22 08:15 Allyssa
--- NOTE | 2022-04-07 13:06 | P.PNNP_ITS ---
Progress Note: A&P Assessment and Plan (1) CHAD (acute kidney injury): Code(s): N17.9 - Acute kidney failure, unspecified Status: Acute Assessment and Plan: * resolved (if not resolving) * suspect due to volume depletion/prerenal azotemia * evaluation to date: * urine electrolytes prerenal * renal ultrasound normal * UA with protein and blood * off IVFs * follow repeat labs and UOP (2) Stage 3b chronic kidney disease: Code(s): N18.32 - Chronic kidney disease, stage 3b Status: Chronic Assessment and Plan: * baseline creatinine runs around 1.4 - 1.7mg/dl from records here at [facility] * presumably due to HTN, vascular disease, and age-related change (3) Closed fracture of right hip: Qualifiers: Encounter type: initial encounter Qualified Code(s): S72.001A - Fracture of unspecified part of neck of right femur, initial encounter for closed fracture Code(s): S72.001A - Fracture of unspecified part of neck of right femur, initial encounter for closed fracture Status: Acute Assessment and Plan: * Orthopedic following * s/p ORIF of right intertrochanteric hip fracture * PT/OT as tolerated * pain control (4) Anemia: Code(s): D64.9 - Anemia, unspecified Status: Acute Assessment and Plan: * due to recent operative intervention and dilution from IVFs * PRBC transfusion today * follow trend of H/H (5) Hypertension: Code(s): I10 - Essential (primary) hypertension Status: Acute Assessment and Plan: * reasonable control; (fluctuations could be due to pain) * follow trend of hemodynamics Not opposed to discharge from renal perspective if otherwise medically stable. Will continue to follow. Subjective Date/time seen: 04/07/22 13:06 Seems to be doing reasonably well at the time of my visit; working with PT/OT as tolerated and pain control seems to be steadily improving with current medication therapy; PRBC transfusion today per Ortho recommendations; no issues/events overnight or earlier this morning. Exam Narrative: General: elderly female in NAD Heart: normal S1 and S2; no rub Lungs: clear to auscultation Abdomen: soft, nontender, nondistended, positive bowel sounds Extremities: no cyanosis or clubbing; no edema Skin: no rash Objective Data Vital Signs Vital Signs: Vital Signs Temp Pulse Resp BP Pulse Ox O2 Del Method O2 Flow Rate 04/07/22 12:20 98.7 F 101 H 18 123/57 L 93 04/07/22 12:12 92 Room Air 04/07/22 12:00 98.1 F 96 20 130/52 L 92 04/07/22 08:00 94 Nasal Cannula 2 04/07/22 08:14 95 04/07/22 06:00 98.9 F 95 20 141/72 H 94 04/06/22 21:45 94 Nasal Cannula 2 04/06/22 21:25 86 L Room Air 04/06/22 21:44 97.9 F 100 22 H 134/88 94 04/06/22 20:00 102 H Intake/Output Intake/Output: Intake & Output 04/04/22 04/05/22 04/06/22 04/07/22 23:59 23:59 23:59 23:59 Intake Total 1190 1500 2929 480 Output Total 1730 3550 3125 950 [place] -540 -4130 -196 -176 Meds/Results Medications: Active Medications Generic Name Dose Route Start Last Admin
[2022-04-07 16:21] LABS: Hematocrit 26.7 % (37.0-47.0); Hemoglobin 8.9 g/dL (12.0-15.0)
[2022-04-07] MEDS: ATORVASTATIN 40 MG TABLET BY MOUTH (21:05)
[2022-04-08] MEDS: oxyCODONE HCL (*CRX) 5 MG TAB IR PO ×2 (04:59→10:36)
[2022-04-08] MEDS: ACETAMINOPHEN 500 MG TABLET 1000 MG PO ×3 (04:59→17:30)
[2022-04-08 05:23] LABS: Basophils Absolute Auto 0.1 K/mm3 (0.0-0.1); Basophils Percent Auto 0.5 % (0.2-1.2); Eosinophils Absolute Auto 0.3 K/mm3 (0-0.3); Eosinophils Percent Auto 2.7 % (0-4.4); Hematocrit 30.5 % (37.0-47.0); Immature Granulocyte Absolute 0.12 K/mm3 (0.00-0.031); Immature Granulocyte Percent A 1.1 % (0-0.5); Lymphocytes Absolute Auto 1.41 K/mm3 (0.9-3.2); Lymphocytes Percent Auto 12.5 % (18.3-44.2); Mean Corpuscular HGB Conc 32.8 g/dl (32-36); Mean Corpuscular Hemoglobin 30.4 pg (26-34); Mean Corpuscular Volume 92.7 fl (80-100); Mean Platelet Volume 10.2 fl (7.4-10.4); Monocytes Absolute Auto 0.9 K/mm3 (0.1-0.6); Monocytes Percent Auto 7.8 % (2.6-8.5); Neutrophils Absolute Auto 8.5 K/mm3 (1.3-6.7); Neutrophils Percent Auto 75.4 % (45.5-73.1); Nucleated Red Blood Cells Perc 0.2 % (0.0-0.2); Platelet Count Result 501 k/mm3 (150-375); Red Blood Count 3.29 M/mm3 (4.2-5.4); Red Cell Distribution Width 14.7 % (11.5-14.5); White Blood Count 11.3 K/mm3 (4.5-10.0)
[2022-04-08 05:37] LABS: Alanine Aminotransferase 26 U/L (6-35); Albumin Level 3.1 g/dL (3.5-5.1); Alkaline Phosphatase 118 U/L (38-126); Anion Gap 8 mmol/L (8-16); Aspartate Amino Transferase 74 U/L (14-36); Bilirubin,Total 1.2 mg/dL (0.2-1.3); Blood Urea Nitrogen 28 mg/dL (7-17); Calcium 8.1 mg/dL (8.4-10.2); Carbon Dioxide 25 mmol/L (22-30); Chloride 107 mmol/L (98-107); Estimated CRCL calculation 32 ml/min; Estimated Glomerular Filt Rate 44; Glucose 108 mg/dL (65-110); Magnesium 1.8 mg/dL (1.6-2.3); Potassium 4.2 mmol/L (3.4-5.0); Sodium 140 mmol/L (137-145)
[2022-04-08 06:00] VITALS: BP 127/77; PULSE 88; RESP 16; TEMP 36.6; O2SAT 96
[2022-04-08] MEDS: ALPRAZolam (*CRX) 0.125 MG TABLET PO ×2 (08:53→17:30)
[2022-04-08] MEDS: FAMOTIDINE 20 MG TABLET PO (08:53)
[2022-04-08 08:54] VITALS: PULSE 88
[2022-04-08] MEDS: PROPRANOLOL HCL 10 MG TABLET BY MOUTH (08:54)
[2022-04-08] MEDS: FERROUS SULFATE 324 MG TABLET PO ×2 (08:54→17:30)
[2022-04-08] MEDS: ASPIRIN 81 MG ENTERIC TABLET PO (08:54)
[2022-04-08] MEDS: CLOPIDOGREL BISULFATE 75 MG TABLET PO (08:54)
[2022-04-08] MEDS: ENOXAPARIN 30 MG/0.3 ML SYRINGE SUB-Q (08:54)
[2022-04-08] MEDS: polyethylene glycoL 3350 17 GM POWD.PACK PO (08:54)
[2022-04-08] MEDS: NICOTINE (*PBKC) 21 MG PATCH 1 PATCH TRANSDERM (08:54)
[2022-04-08] MEDS: FLUTICASONE PROPIONATE 0.05% NA SPR 16 GM BTL (*BKC) 1 SPRAY NASAL (08:54)
[2022-04-08] MEDS: SENNA/DOCUSATE SODIUM TABLET 2 TAB PO ×2 (08:55→17:30)
[2022-04-08] MEDS: amLODIPine BESYLATE 5 MG TABLET BY MOUTH (08:55)
[2022-04-08] MEDS: LORATADINE 10 MG TABLET PO (08:55)
--- NOTE | 2022-04-08 12:17 | PM.PNNEP ---
Progress Note: A&P Assessment and Plan (1) CHAD (acute kidney injury): Code(s): N17.9 - Acute kidney failure, unspecified Status: Resolved Assessment and Plan: resolved (if not resolving) suspect due to volume depletion/prerenal azotemia evaluation to date: urine electrolytes prerenal renal ultrasound normal UA with protein and blood off IVFs follow repeat labs and UOP (2) Stage 3b chronic kidney disease: Code(s): N18.32 - Chronic kidney disease, stage 3b Status: Chronic Assessment and Plan: baseline creatinine runs around 1.4 - 1.7mg/dl from records here at [facility] presumably due to HTN, vascular disease, and age-related change suspect better creatinine due to limited mobility/ambulation given #3 (3) Closed fracture of right hip: Qualifiers: Encounter type: initial encounter Qualified Code(s): S72.001A - Fracture of unspecified part of neck of right femur, initial encounter for closed fracture Code(s): S72.001A - Fracture of unspecified part of neck of right femur, initial encounter for closed fracture Status: Acute Assessment and Plan: Orthopedic following s/p ORIF of right intertrochanteric hip fracture PT/OT as tolerated pain control (4) Anemia: Code(s): D64.9 - Anemia, unspecified Status: Acute Assessment and Plan: due to recent operative intervention and dilution from IVFs PRBC transfusion today follow trend of H/H (5) Hypertension: Code(s): I10 - Essential (primary) hypertension Status: Acute Assessment and Plan: reasonable control; (fluctuations could be due to pain) follow trend of hemodynamics Not opposed to discharge from renal perspective if otherwise medically stable. Not much else to add -- will continue to follow from a distance Subjective Date/time seen: 04/08/22 12:17 No new issues or problems to report at this time; renal function continues to improve with supportive therapy; pain control seems adequate; continues to participate with PT/OT as tolerated; no other events overnight or earlier this morning. Exam Narrative: General: elderly female in NAD Heart: normal S1 and S2; no rub Lungs: clear to auscultation Abdomen: soft, nontender, nondistended, positive bowel sounds Extremities: no cyanosis or clubbing; no edema Skin: no rash Objective Data Vital Signs Vital Signs: Vital Signs Temp Pulse Resp BP Pulse Ox O2 Del Method 04/08/22 09:00 Room Air 04/08/22 08:54 88 04/08/22 06:00 97.9 F 88 16 127/77 96 04/07/22 22:00 97.9 F 90 20 122/57 L 96 04/07/22 21:05 88 04/07/22 14:20 98.8 F 90 18 144/74 H 91 Intake/Output Intake/Output: Intake & Output 04/05/22 04/06/22 04/07/22 04/08/22 23:59 23:59 23:59 23:59 Intake Total 1500 2929 2570 1080 Output Total 3550 3125 2300 1300 Balance -2049 270 220 Meds/Results Medications: Active Medications Generic Name Dose Route Start Last Admin Trade Name Freq PRN Reason Stop Dose Admin Acetaminophen 1,000 mg 04/04/22 18:00 04/08/22 12:30 Acetaminophen 500 Mg Tablet PO 1,000 mg Q6HR ROSIE Administration Alprazolam 0.125 mg 04/05/22 14:45 04/08/22 08:53 Alprazolam (*Crx) 0.125 Mg Tablet PO 0.125 mg TID PRN Administration Anxiety Amlodipine Besylate 5 mg 04/04/22 09:00 04/08/22 08:55 Amlodipine Besylate 5 Mg Tablet BY MOUTH 5 mg DAILY ROSIE Administration Aspirin 81 mg 04/04/22 09:00 04/08/22 08:54 Aspirin 81 Mg Enteric Tablet PO 81 mg DAILY ROSIE Administration Atorvastatin Calcium 40 mg 04/03/22 21:00 04/07/22 21:05 Atorvastatin 40 Mg Tablet BY MOUTH 40 mg HS ROSIE Administration Clopidogrel Bisulfate 75 mg 04/05/22 09:00 04/08/22 08:54 Clopidogrel Bisulfate 75 Mg Tablet PO 75 mg QAM ROSIE Administration Enoxaparin Sodium 30 mg 04/05/22 09:00
--- NOTE | 2022-04-08 12:17 | P.PNNP_ITS ---
Progress Note: A&P Assessment and Plan (1) CHAD (acute kidney injury): Code(s): N17.9 - Acute kidney failure, unspecified Status: Resolved Assessment and Plan: * resolved (if not resolving) * suspect due to volume depletion/prerenal azotemia * evaluation to date: * urine electrolytes prerenal * renal ultrasound normal * UA with protein and blood * off IVFs * follow repeat labs and UOP (2) Stage 3b chronic kidney disease: Code(s): N18.32 - Chronic kidney disease, stage 3b Status: Chronic Assessment and Plan: * baseline creatinine runs around 1.4 - 1.7mg/dl from records here at [facility] * presumably due to HTN, vascular disease, and age-related change * suspect better creatinine due to limited mobility/ambulation given #3 (3) Closed fracture of right hip: Qualifiers: Encounter type: initial encounter Qualified Code(s): S72.001A - Fracture of unspecified part of neck of right femur, initial encounter for closed fracture Code(s): S72.001A - Fracture of unspecified part of neck of right femur, initial encounter for closed fracture Status: Acute Assessment and Plan: * Orthopedic following * s/p ORIF of right intertrochanteric hip fracture * PT/OT as tolerated * pain control (4) Anemia: Code(s): D64.9 - Anemia, unspecified Status: Acute Assessment and Plan: * due to recent operative intervention and dilution from IVFs * PRBC transfusion today * follow trend of H/H (5) Hypertension: Code(s): I10 - Essential (primary) hypertension Status: Acute Assessment and Plan: * reasonable control; (fluctuations could be due to pain) * follow trend of hemodynamics Not opposed to discharge from renal perspective if otherwise medically stable. Not much else to add -- will continue to follow from a distance Subjective Date/time seen: 04/08/22 12:17 No new issues or problems to report at this time; renal function continues to improve with supportive therapy; pain control seems adequate; continues to par ticipate with PT/OT as tolerated; no other events overnight or earlier this morning. Exam Narrative: General: elderly female in NAD Heart: normal S1 and S2; no rub Lungs: clear to auscultation Abdomen: soft, nontender, nondistended, positive bowel sounds Extremities: no cyanosis or clubbing; no edema Skin: no rash Objective Data Vital Signs Vital Signs: Vital Signs Temp Pulse Resp BP Pulse Ox O2 Del Method 04/08/22 09:00 Room Air 04/08/22 08:54 88 04/08/22 06:00 97.9 F 88 16 127/77 96 04/07/22 22:00 97.9 F 90 20 122/57 L 96 04/07/22 21:05 88 04/07/22 14:20 98.8 F 90 18 144/74 H 91 Intake/Output Intake/Output: Intake & Output 04/05/22 04/06/22 04/07/22 04/08/22 23:59 23:59 23:59 23:59 Intake Total 1500 2929 2570 1080 Output Total 3550 3125 2300 1300 Balance -2049 270 -220 Meds/Results Medications: Active Medications Generic Name Dose Route Start Last Admin Trade Name Freq PRN Reason Stop Dose Admin Acetaminophen 1,000 mg 04/04/22 18:00 04/08/22 12:30 Acetaminophen 500 Mg T
--- NOTE | 2022-04-08 12:54 | P.PNIM_ITS ---
Progress Note: A&P Assessment and Plan (1) Closed fracture of right hip: Qualifiers: Encounter type: initial encounter Qualified Code(s): S72.001A - Fracture of unspecified part of neck of right femur, initial encounter for closed fracture Code(s): S72.001A - Fracture of unspecified part of neck of right femur, initial encounter for closed fracture Status: Acute Assessment and Plan: * Patient presented after a fall. * Right hip a x-ray showed communicated intertrochanteric fracture of the pro ximal right femur * Appreciate orthopedic surgery consultation * Underwent ORIF on 04/04/[address] Cam. Tolerated procedure well. * Pain medications on board, continue scheduled tylenol, discontinue scheduled oxycodone and continue prn oxycodone and prn morphine 0.5mg IV for 7-10 pain * postop care per Orthopedics * DVT prophylaxis per Orthopedics * PT and OT post op * Planning for discharge to [facility] in [place]. May have acceptance this afternoon after 4:00 p.m. (2) Anemia: Code(s): D64.9 - Anemia, unspecified Status: Acute Assessment and Plan: * 04/07/2022 hemoglobin 7.3 * Patient was transfused 1 unit packed RBCs with improvement in H&H * H&H remaining stable today. Hemoglobin 10.0, hematocrit 30.5 * anemia labs iron 19, TIBC 174, % sat 11, Transferrin 120, Ferritin 225, B12 530, Folate 8.1 * Continue Ferrous sulfate 325mg PO BID * supplement as indicated * Transfuse as indicated (3) Uncontrolled pain: Code(s): R52 - Pain, unspecified Status: Acute Assessment and Plan: * Hip pain is better controlled today * Continue with analgesics as described above (4) CHAD (acute kidney injury): Code(s): N17.9 - Acute kidney failure, unspecified Status: Resolved Assessment and Plan: * Resolved. BUN and creatinine elevated upon arrival at 67 /3.30 * Improved with IV fluid rehydration * Appreciate nephrology consultation * Creatinine 1.2 today, BUN 25 * Further IV fluids discontinued\ * Renal ultrasound does not appear to have any abnormalities * Avoid nephrotoxic medications * Urine studies Na <5, Urea 821, Cr 102.1, Fena indicated pre renal * Likely prerenal secondary to dehydration. (5) CKD (chronic kidney disease) stage 3, GFR 30-59 ml/min: Code(s): N18.30 - Chronic kidney disease, stage 3 unspecified Status: Acute Assessment and Plan: * Appears to be in stage 3 * Continue to trend labs * See above (6) Hyperlipidemia: Code(s): E78.5 - Hyperlipidemia, unspecified Status: Acute Assessment and Plan: * continue with atorvastatin * monitor LFTs (7) Hypertension: Code(s): I10 - Essential (primary) hypertension Status: Acute Assessment and Plan: * Blood pressures have been stable. Last BP 127/77 * Continue home amlodipine * Monitor BP trends (8) Nicotine dependence: Code(s): F17.200 - Nicotine dependence, unspecified, uncomplicated Status: Acute Assessment and Plan: * Patient has been educated smoking cessation * the patient is agreeable to nicotine patch. * add gum (9) History of CVA (cerebrovascular accident): Code(s): Z86.73 - Personal history of transient ischemic attack (TIA), and cerebral infarction without residual deficits Status: Acute Assessment and Plan: * No acute issues * Continue aspirin and plavix (10) Fall:
--- NOTE | 2022-04-08 12:54 | PM.IMPN ---
Progress Note: A&P Assessment and Plan (1) Closed fracture of right hip: Qualifiers: Encounter type: initial encounter Qualified Code(s): S72.001A - Fracture of unspecified part of neck of right femur, initial encounter for closed fracture Code(s): S72.001A - Fracture of unspecified part of neck of right femur, initial encounter for closed fracture Status: Acute Assessment and Plan: Patient presented after a fall. Right hip a x-ray showed communicated intertrochanteric fracture of the proximal right femur Appreciate orthopedic surgery consultation Underwent ORIF on 04/04/[address] Cam. Tolerated procedure well. Pain medications on board, continue scheduled tylenol, discontinue scheduled oxycodone and continue prn oxycodone and prn morphine 0.5mg IV for 7-10 pain postop care per Orthopedics DVT prophylaxis per Orthopedics PT and OT post op Planning for discharge to [facility] in [place]. May have acceptance this afternoon after 4:00 p.m. (2) Anemia: Code(s): D64.9 - Anemia, unspecified Status: Acute Assessment and Plan: 04/07/2022 hemoglobin 7.3 Patient was transfused 1 unit packed RBCs with improvement in H&H H&H remaining stable today. Hemoglobin 10.0, hematocrit 30.5 anemia labs iron 19, TIBC 174, % sat 11, Transferrin 120, Ferritin 225, B12 530, Folate 8.1 Continue Ferrous sulfate 325mg PO BID supplement as indicated Transfuse as indicated (3) Uncontrolled pain: Code(s): R52 - Pain, unspecified Status: Acute Assessment and Plan: Hip pain is better controlled today Continue with analgesics as described above (4) CHAD (acute kidney injury): Code(s): N17.9 - Acute kidney failure, unspecified Status: Resolved Assessment and Plan: Resolved. BUN and creatinine elevated upon arrival at 67 /3.30 Improved with IV fluid rehydration Appreciate nephrology consultation Creatinine 1.2 today, BUN 25 Further IV fluids discontinued\ Renal ultrasound does not appear to have any abnormalities Avoid nephrotoxic medications Urine studies Na <5, Urea 821, Cr 102.1, Fena indicated pre renal Likely prerenal secondary to dehydration. (5) CKD (chronic kidney disease) stage 3, GFR 30-59 ml/min: Code(s): N18.30 - Chronic kidney disease, stage 3 unspecified Status: Acute Assessment and Plan: Appears to be in stage 3 Continue to trend labs See above (6) Hyperlipidemia: Code(s): E78.5 - Hyperlipidemia, unspecified Status: Acute Assessment and Plan: continue with atorvastatin monitor LFTs (7) Hypertension: Code(s): I10 - Essential (primary) hypertension Status: Acute Assessment and Plan: Blood pressures have been stable. Last BP 127/77 Continue home amlodipine Monitor BP trends (8) Nicotine dependence: Code(s): F17.200 - Nicotine dependence, unspecified, uncomplicated Status: Acute Assessment and Plan: Patient has been educated smoking cessation the patient is agreeable to nicotine patch. add gum (9) History of CVA (cerebrovascular accident): Code(s): Z86.73 - Personal history of transient ischemic attack (TIA), and cerebral infarction without residual deficits Status: Acute Assessment and Plan: No acute issues Continue aspirin and plavix (10) Fall: Code(s): W19.XXXA - Unspecified fall, initial encounter Status: Acute Assessment and Plan: Ground level mechanical fall, Velcro from shoes noted to have stuck to the carpet Unfortunately sustained hip fracture secondary to fall. See above. Denies any precipitating symptoms Plan Postop DVT prophylaxis per Ortho. Subjective Date/time seen: 04/08/22 12:54 Interval history: Date of service: 04/08/2022 Patricia Nava is a 71-year-old female with a history of hypert
[2022-04-08 14:00] VITALS: BP 166/94; PULSE 105; RESP 16; TEMP 37; O2SAT 90
--- NOTE | 2022-04-08 15:39 | PM.DS ---
DS: Admitting Diagnosis Discharge Date 04/08/2022 Admitting Diagnosis Right hip fracture DS: Discharge Diagnosis Discharge Diagnosis (1) Fall: Code(s): W19.XXXA - Unspecified fall, initial encounter Status: Acute Assessment and Plan: Patient suffered ground level mechanical fall. Reportedly the Velcro from her shoe got stuck to the carpet. Unfortunately sustained hip fracture secondary to fall. See plan as below. Patient denies any precipitating symptoms. Denies hitting head or LOC. Fall precautions implemented. (2) Closed fracture of right hip: Qualifiers: Encounter type: initial encounter Qualified Code(s): S72.001A - Fracture of unspecified part of neck of right femur, initial encounter for closed fracture Code(s): S72.001A - Fracture of unspecified part of neck of right femur, initial encounter for closed fracture Status: Acute Assessment and Plan: Patient presented after a fall. Right hip a x-ray showed communicated intertrochanteric fracture of the proximal right femur. She was seen in consultation by Orthopedic surgery and underwent ORIF on 04/04/[address] Cam. She tolerated the procedure well. Participated in PT/OT postoperatively and will continue therapy at SNF. Supportive care including analgesics was provided. She will continue Lovenox injections for DVT prophylaxis for a total of 42 days postoperatively. She will follow-up with Orthopedic surgery as an outpatient (3) Anemia: Code(s): D64.9 - Anemia, unspecified Status: Acute Assessment and Plan: H&H was slight decline postoperatively to 7.3. Patient was transfused 1 unit packed RBCs with improvement in hemoglobin. She was started on oral iron supplementation 325 mg b.i.d.. She will have a repeat H&H in 1 week (4) Acute on chronic kidney failure: Code(s): N17.9 - Acute kidney failure, unspecified; N18.9 - Chronic kidney disease, unspecified Status: Resolved Assessment and Plan: Resolved. BUN and creatinine elevated upon arrival at 67/3.30. Baseline creatinine appears to be around 1.6. Renal function improved with IV fluid rehydration. Patient was seen in consultation by nephrology during admission. Renal ultrasound was unremarkable. Creatinine improved back to baseline (5) Urinary retention: Code(s): R33.9 - Retention of urine, unspecified Status: Acute Assessment and Plan: Patient failed voiding trial on 04/06, bladder scan with >1000 cc urine retained. Bernardo catheter replaced and pt will continue with Bernardo at nursing facility. Repeat voiding trial in 1 week at facility. Will need urology referral if still unable to void. (6) Hypertension: Code(s): I10 - Essential (primary) hypertension Status: Acute Assessment and Plan: Blood pressure was reasonably controlled. Continue home amlodipine (7) Nicotine dependence: Code(s): F17.200 - Nicotine dependence, unspecified, uncomplicated Status: Acute Assessment and Plan: Reportedly smokes 1 pack per day. Nicotine patch provided during admission. She was educated on smoking cessation but has no intentions of quitting. (8) History of CVA (cerebrovascular accident): Code(s): Z86.73 - Personal history of transient ischemic attack (TIA), and cerebral infarction without residual deficits Status: Acute Assessment and Plan: No acute issues. Continue aspirin and plavix DS: Summary Hospital Course Hospital Course: Date of admission: 04/03/2022 Date of discharge: 04/08/2022 Patricia Nava is a 71-year-old female with a history of hypertension, hyperlipidemia, CVA, tobacco abuse, and essential tremor who presented to the emergency department on 04/03/2022 after suffering a fall and complained of right hip pain. On presentation to the ED, her vital signs are stable, she was afebrile, WBC 12.0, hemoglobin 10.3, sodium 1
[2022-04-08 16:44] LABS: EDCOVIDSCREEN Negative (Negative)
[2022-04-08 17:30] VITALS: O2SAT 95
== END 2022-04-08 17:47 | DRG 481 ==
LOC: ANHED 14:34 → ANH3MED 14:47
PROVIDERS: Nurse Practitioner; Orthopaedic Surgery; Physician Assistant; Admitting Provider Internal Medicine; Emergency Provider Emergency Medicine; PCP Nurse Practitioner Family; Visit Provider Physician Assistant
PROC: 0QS604Z Reposition Right Upper Femur with Internal Fixation Device, Open Approach (ICD-10-PCS; CPT 27245; principal; 2022-04-04 14:30)
DX: S72.141A Displaced intertrochanteric fracture of right femur, initial encounter for closed fracture (principal); E87.1 Hypo-osmolality and hyponatremia; N17.9 Acute kidney failure, unspecified; W01.0XXA Fall on same level from slipping, tripping and stumbling without subsequent striking against object, initial encounter; E86.0 Dehydration; I69.398 Other sequelae of cerebral infarction; G25.0 Essential tremor; R26.81 Unsteadiness on feet; D64.89 Other specified anemias; N18.32 Chronic kidney disease, stage 3b; Z20.822 Contact with and (suspected) exposure to COVID-19; I12.9 Hypertensive chronic kidney disease with stage 1 through stage 4 chronic kidney disease, or unspecified chronic kidney disease; R33.9 Retention of urine, unspecified; F17.210 Nicotine dependence, cigarettes, uncomplicated; E78.5 Hyperlipidemia, unspecified; Z90.710 Acquired absence of both cervix and uterus
CPT/HCPCS: 36415; 36430; 71045; 73502; 73560; 73700; 76775; 80048; 80053; 80307; 81001; 82306; 82570; 82607; 82728; 82746; 83540; 83550; 83605; 83735; 83935; 84300; 84443; 84466; 84540; 85014; 85018; 85025; 86850; 86900; 86901; 86923; 87426; 93005; 96376; 97110; 97162; 97166; 97530; 97535; 99199; 99285; A9270; C1713; C9803; G0378; J0131; J0330; J0690; J1100; J1650; J2270; J2405; J2704; J3010; J3370; J7030; J7050; J7120; P9016

== ENCOUNTER 2022-04-09 21:37 | Emergency (ER) | payer MEDICARE, SELFPAY ==
--- NOTE | ~2022-04-09 | CT_ITS ---
EXAMINATION: CT cervical spine wo con DATE: 04/09/2022 23:21 INDICATION: FALL. TECHNIQUE: Computed tomography (CT) of the cervical spine was performed without intravenous contrast. Automated exposure control and iterative reconstruction technique were employed. The dose-length pro duct was 156.89 mGy-cm. COMPARISON: None FINDINGS: Vertebral Body Alignment: Intact. Craniocervical and atlantoaxial alignment: Moderate degenerative change. Alignment intact. Osseous structures/fracture: No evidence of a lytic or blastic process in the visualized spine. No e vidence of acute fracture. Cervical soft tissues: The paraspinal soft tissues planes are maintained. Minimal apical pleural scar ring. Small left apical pleural bleb. Degenerative changes: Multilevel degenerative disc disease and facet arthropathy. No severe central c anal or neural foraminal narrowing.. IMPRESSION: No acute fracture or traumatic malalignment in the cervical spine. Reviewed, dictated and finalized at location K. BOWLS PAINT TRIMMER
--- NOTE | ~2022-04-09 | CT_ITS ---
EXAMINATION: CT brain wo con DATE: 04/09/2022 23:21 INDICATION: FALL. CONFUSION. . TECHNIQUE: Computed tomography (CT) of the head was performed without intravenous contrast. The mA wa s adjusted according to patient size. Iterative reconstruction technique was employed. The dose-lengt h product was 605.33 mGy-cm. COMPARISON: 09/23/2020 FINDINGS: No acute intracranial hemorrhage or extra-axial fluid collection. No hydrocephalus, mass, or herniation. No acute ischemic infarct. Unremarkable dural venous sinus attenuation. No acute osseous abnormality. The aerated spaces are clear. Moderate atrophy and chronic white matter change. Atherosclerotic intracranial calcification. Large o ld right temporoparietal occipital infarct. Ex vacuo dilatation of the right lateral ventricle. Old b ilateral basal ganglia lacunar infarcts. IMPRESSION: No acute intracranial process. Reviewed, dictated and finalized at location K. RSMAN
--- NOTE | ~2022-04-09 | CT_ITS ---
EXAMINATION: CT pelvis wo con DATE: 04/09/2022 23:22 INDICATION: Fall. Low back pain. Left hip pain. TECHNIQUE: Computed tomography (CT) of the pelvis was performed without intravenous contrast. Automat ed exposure control and iterative reconstruction technique were employed. The dose-length product was 296.31 mGy-cm. COMPARISON: X-ray 04/03/2022 FINDINGS: Atherosclerotic arterial calcifications. The bladder is decompressed by a Bernardo catheter. M inimal diverticulosis. Resolving postsurgical changes in the right hip status post recent intertrocha nteric nail placement for a prior right intertrochanteric fracture. 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 Decreased bone mineral density. Degenerative change in the lower lumbar spine. Mild left hip osteoarthritis. No fracture or dislocation. IMPRESSION: No acute osseous finding in the pelvis or left hip. Reviewed, dictated and finalized at location K. [employer]
--- NOTE | ~2022-04-09 | XR_ITS ---
EXAMINATION: XR chest 1V Exam Date/Time: 04/09/2022 22:53 ROD FINISHER HISTORY: chest pain. FALL. Comparison: 04/03/2022. RESULT: Lines, tubes, and devices: None. Lungs and pleura: Senescent changes, otherwise clear. Cardiomediastinal silhouette: Stable. Other: No acute osseous or upper abdominal finding. IMPRESSION: No acute cardiopulmonary process. Reviewed, dictated and finalized at location K. FINISHER
[2022-04-09 21:37] VITALS: BP 184/86; PULSE 86; RESP 20; TEMP 37.1; O2SAT 95
--- NOTE | 2022-04-09 22:48 | ECG_ITS ---
Measurements Intervals [place] Rate: 96 P: 55 RI: 132 QRS: -43 QRSD: 76 T: 68 QT: 330 QTc: 417 Interpretive Statements SINUS RHYTHM POSSIBLE LEFT ATRIAL ENLARGEMENT LEFT AXIS DEVIATION RSR' IN V1 OR V2, PROBABLY NORMAL VARIANT LOW QRS VOLTAGE IN PRECORDIAL LEADS POOR R WAVE PROGRESSION, ANTERIOR LEADS CONSIDER INFERIOR INFARCT, AGE INDETERMINATE BASELINE ARTIFACT- I, II, III, AVR, AVL, AVF, V1-V2, V6 ABNORMAL ECG COMPARED TO ECG 04/03/2022 12:05:12 NO SIGNIFICANT CHANGES Electronically Signed On 04-10-2022 9:29:14 SUSPENDER CUTTER by Alexis Cazares D.O.
[2022-04-09 23:30] LABS: Basophils Absolute Auto 0.04 K/mm3 (0.00-0.10); Basophils Percent Auto 0.3 % (0.0-1.0); Eosinophils Absolute Auto 0.19 K/mm3 (0.02-0.50); Eosinophils Percent Auto 1.5 % (1.0-6.0); Hematocrit 30.4 % (35.0-42.0); Hemoglobin 9.6 g/dL (11.7-13.8); Immature Granulocyte Absolute 0.14 K/mm3 (0.00-0.00); Immature Granulocyte Percent A 1.1 % (0.0-0.0); Immature Platelet Fraction Pct 2.4 % (1.0-7.0); Lymphocytes Absolute Auto 0.88 K/mm3 (1.10-4.50); Mean Corpuscular HGB Conc 31.6 g/dL (32.0-36.0); Mean Corpuscular Hemoglobin 28.8 pg (27.0-31.0); Mean Corpuscular Volume 91.3 fL (78.0-102.0); Mean Platelet Volume 10.1 fl (9.2-11.8); Monocytes Absolute Auto 0.88 K/mm3 (0.10-0.90); Neutrophils Absolute Auto 10.4 K/mm3 (1.7-7.2); Neutrophils Percent Auto 83.1 % (50.0-70.0); Platelet Count Result 571 K/mm3 (150-420); Red Blood Count 3.33 M/mm3 (4.20-5.40); Red Cell Distribution Width 14.5 % (11.6-14.4); White Blood Count 12.5 K/mm3 (4.8-10.8)
[2022-04-09 23:50] LABS: Alanine Aminotransferase 46 U/L (14-59); Albumin Level 2.4 g/dL (3.4-5.0); Alkaline Phosphatase 108 U/L (46-116); Anion Gap 8 mmol/L (8-16); Appearance Urine Clear (Clear); Aspartate Amino Transferase 61 U/L (15-37); Bilirubin Urine Negative (Negative); Bilirubin,Total 1.3 mg/dL (0.00-1.00); Blood Urea Nitrogen 23 mg/dL (7-18); Blood Urine 1+ (Negative); Calcium 8.3 mg/dL (8.5-10.1); Carbon Dioxide 30 mmol/L (21-32); Chloride 105 mmol/L (98-108); Creatine Kinase 199 U/L (26-192); Estimated Glomerular Filt Rate 39; Glucose 117 mg/dL (70-99); Glucose Urine UA Negative (Negative); Ketones Urine Negative (Negative); Lactic Acid Reflex 0.9 mmol/L (0.4-2.0); Leukocyte Esterase Ur 1+ (Negative); Nitrate Urine Negative (Negative); Osmolality Calculated 300 mOsm/kg (285-295); Potassium 3.7 mmol/L (3.5-5.1); Protein Urine Negative (Negative); Sodium 143 mmol/L (136-145); Specific Grav Ur <= 1.005 (1.010-1.020); Total Protein 6.4 g/dL (6.4-8.2); Urobilinogen Urine 0.2 mg/dL (0.2-1.0)
[2022-04-09 23:56] LABS: Troponin I 76.1 ng/L (0.00-60.4)
[2022-04-10 00:01] LABS: Add Urine Microscopic? YES; Color Urine Light Yellow (Yellow); RBC Urine 0-2 /hpf (0-2); WBC Urine Noted /hpf (0-3)
[2022-04-10 00:02] LABS: Bacteria Urine Trace /hpf
--- NOTE | 2022-04-10 01:40 | PC.NURSE ---
pt adamantly refusing repeat lab draw. no reasoning with pt. explained need. pt states your stealing money and it is fraud . multiple attempts to reach , roma calvillo unsuccessful.
--- NOTE | 2022-04-10 02:44 | PC.NURSE ---
pt has had direct observation from staff since arrival to er. reorientation and explained plan of care unsuccessful. pt adamantly refusing vitals, repeat lab draw.
--- NOTE | 2022-04-10 02:55 | PC.NURSE ---
resp tech assisting with watching pt, pt cursing and hateful with staff. refusing to get up in the bed for her safety. states i need to go get my medication . attempt to reorientate patient unsuccessful.
--- NOTE | 2022-04-10 03:21 | PC.NURSE ---
call to police department for roma calvillo notification of pt whereabout and need to come to er.
--- NOTE | 2022-04-10 04:01 | PC.NURSE ---
[id number] roma here. after extensive encouragement. pt has agreed to redraw lab for troponin level. pt up sitting in chair with assistance from staff. roma in room with pt at this time
--- NOTE | 2022-04-10 04:10 | PC.NURSE ---
pt sitting quietly in chair, remains in room with pt. awaiting lab results
[2022-04-10 04:20] VITALS: BP 115/76; PULSE 97; RESP 20; TEMP 36.9; O2SAT 95
[2022-04-10] MEDS: cefTRIAXone 1 GM, LIDOCAINE HCL 1% LOCAL INJ 2.1 ML IM (04:30)
[2022-04-10 04:33] LABS: Troponin I 75.8 ng/L (0.00-60.4)
--- NOTE | 2022-04-10 05:10 | PC.NURSE ---
0430 pt assisted to bed with extensive assisted of rn. noted pressure wound to right buttock/coccyx region. stated no wounds prior to surgery that he is aware of. aquacel dressing to be applied when pt awakens. [id number] roma going home while pt is sleeping. to call if pt get agitated again.
--- NOTE | 2022-04-10 06:04 | PC.NURSE ---
pt remains asleep, roma returns. sitting in lobby watching morning news. awaiting return call from dr harper, [facility]
--- NOTE | 2022-04-10 06:26 | PC.NURSE ---
informed of acceptance and transfer to [facility]. 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 and now wants to declined transfer and take pt back to [facility] facility. explained need for cardiac consult per rn and dr brantley, roma continues to want to take pt back to [facility].
--- NOTE | 2022-04-10 06:41 | PC.NURSE ---
0630 roma signed ama form for pt to return to [facility]. roma states 'i am her power of patent attorney since she can not make her own decision and is confused . [id number] in room with pt. pt agitated again. yelling at rn when trying to encourage pt to stay in bed. call placed to [facility] for transport back to [facility]. call placed to [facility] and report to ruddy smallwood regarding signing pt out ama.
--- NOTE | 2022-04-10 07:00 | ED.FALL ---
HPI - Fall General Chief Complaint: Fall Stated Complaint: amb Time Seen by Provider: 04/09/22 21:41 Source: patient and other (Fdc.) Mode of arrival: EMS Limitations: dementia History of Present Illness complaint: fall Onset (ago): hour(s) (1) Fall witnessed: no Place fall occurred: [facility] Loss of consciousness: none Prolonged down time: no Symptoms prior to fall: none Context: history of frequent falls Location of injury: other (pt denied.) Associated symptoms (after fall): denies Related Data Allergies Allergy/AdvReac Type Severity Reaction Status Date / Time No Known Allergies Allergy Unverified 12/07/21 08:06 Review of Systems Review of Systems: All systems reviewed & are unremarkable except as noted in HPI and below Constitutional: Constitutional: Reports no additional constitutional complaints Eyes: Eyes: Reports no additional eye complaints ENT: Reports system reviewed and no additional complaints, except as documented Cardiovascular: Cardiovascular: Reports no additional cardiovascular complaints Respiratory: Respiratory: Reports no additional respiratory complaints Gastrointestinal: Gastrointestinal: Reports no additional gastrointestinal complaints Genitourinary: Genitourinary: Reports no additional female genitourinary complaints Musculoskeletal: Musculoskeletal: Reports no additional musculoskeletal complaints Integumentary/Breasts: Skin/Breast: Reports system reviewed and no additional complaints, except as docu Neurologic: Reports system reviewed and no additional complaints, except as documented Psychiatric: Psychiatric: Reports no additional psychiatric complaints Endocrine: Endocrine: Reports no additional endocrine complaints Hematologic/Lymphatic: Hematologic/Lymphatic: Reports no additional hematologic/lymphatic complaints Allergic/Immunologic: Allergic/Immunologic: Reports no additional allergic/immunologic complaints [facility] Past Medical History Medical History (Updated 04/10/22 @ 07:14 by Adry Andraed MD) Boil Essential tremor Fall History of CVA (cerebrovascular accident) Hyperlipidemia Hypertension Need for 23-polyvalent pneumococcal polysaccharide vaccine Nicotine dependence TIA (transient ischemic attack) UTI (urinary tract infection) Surgical History Surgical History History of hysterectomy History of removal of pigmented skin lesion Family History Family History Mother Hypertension Social History Social History Social History: she lives with her and 1 of her sons. she has has 2 sons. 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 she drinks a can of beer at times and can drink up to 3 beers during the summer.(family member stated that she probably drinks more than stated) Poa her kids. code status full code Smoking packs per day: 1 Smoking cigarettes per day: 20.0 Years smoked: 28 Smoking pack-years: 28.00 Smoking status: Former smoker Tobacco type: cigarettes Alcohol intake: former Alcohol use details: social Substance use: never Substance use type: does not use Lack of Transportation: No Lack of Food: Never True Current Housing: Decline to Answer Concerned About Future Housing: No Difficulty Paying Gas/Electric Bills: No Difficulty Paying for Meds: No Currently Unemployed: No Education: Decline to Answer Difficulty w/ Childcare or Family Care: No Additional living arrangements comments: , has 2 children Gender identity (if verbalized by the patient): Female Spiritual care concerns: No Exam Const: General: no acute distress, confusion and well nourished Nutritional Appearance: thin Orientation/consciousness: patient oriented x3 Limitations: no limitations HENMT: Head: normal
--- NOTE | 2022-04-10 07:42 | PC.NURSE ---
copy of chart, rx for antibiotic, signed DNR per [facility] emergency charge nurse request sent with pt. Mahogany , charge nurse notified of pt return per ems.
--- NOTE | 2022-04-10 07:46 | PC.NURSE ---
0700 update to angie, commercial housekeeper at [facility] , notified of pt signed ama and returning to detention.
== END 2022-04-10 07:45 | disposition left against medical advice (07) ==
PROVIDERS: Emergency Provider Emergency Medicine; PCP Nurse Practitioner Family
DX: N39.0 Urinary tract infection, site not specified (principal); I21.4 Non-ST elevation (NSTEMI) myocardial infarction; W19.XXXA Unspecified fall, initial encounter; E78.5 Hyperlipidemia, unspecified; I10 Essential (primary) hypertension; Z86.73 Personal history of transient ischemic attack (TIA), and cerebral infarction without residual deficits; Z87.891 Personal history of nicotine dependence
CPT/HCPCS: 36415; 70450; 71045; 72125; 72192; 80053; 81001; 82550; 83605; 84484; 85025; 85055; 93005; 96372; 99284; J0696

== ENCOUNTER 2022-04-14 11:25 | Inpatient (IN) | payer MEDICARE, SELFPAY ==
[2022-04-14] VITALS (21 sets, daily range): BP systolic 129–140; BP diastolic 66–78; PULSE 63–93; RESP 11–23; TEMP 36.6; O2SAT 95–98
--- NOTE | ~2022-04-14 | XR_ITS ---
XR hip RT 2V w AP pelvis DATE: 04/14/2022 12:23 INDICATION: Fall. Recent hip fracture repair. TECHNIQUE: AP pelvis. AP and lateral views of the right hip COMPARISON: 04/03/2022 right hip FINDINGS: Normal alignment at the pubic symphysis and sacroiliac joints. Normal alignment at the hip joints. Recent postoperative change of the right hip with intramedullary nail extending into the distal femor al shaft, with compression screws extending relative the right intertrochanteric area into the right femoral head. There is a minimally displaced lesser trochanteric fracture fragment. A new linear nondisplaced fracture line is noted at the lateral proximal femoral shaft, not present o n 04/03/2022. IMPRESSION: New linear nondisplaced proximal right ureteral femoral shaft fracture Status post ORIF right intertrochanteric hip fracture Reviewed, dictated and finalized at location B. NDING ANESTHESIOLOGIST IMPRESSION: New linear nondisplaced proximal right ureteral femoral shaft fract ure Status post ORIF right intertrochanteric hip fracture
--- NOTE | ~2022-04-14 | CT_ITS ---
EXAMINATION: CT brain wo con DATE: 04/14/2022 21:33 INDICATION: Confusion. Multiple falls. TECHNIQUE: Computed tomography (CT) of the head was performed without intravenous contrast. The dose- length product was 605.33 mGy-cm. Automated exposure control and iterative reconstruction technique w ere employed. COMPARISON: CT dated 04/09/2022 FINDINGS: Generalized atrophy. Chronic right lacunar infarction. Chronic infarction of the right post erior parietal, occipital and temporal lobes with encephalomalacia. There is intracranial atheroscler osis. No ventriculomegaly or midline shift. There are chronic left lacunar infarctions. Paranasal sin uses and mastoids are pneumatized. There are scattered mild periventricular and subcortical white mat ter changes, most likely related to small vessel ischemic disease (microangiopathy). IMPRESSION: 1. No acute intracranial abnormality. Reviewed, dictated and finalized at location A. ANICAL SERVICE SPECIALIST
--- NOTE | ~2022-04-14 | XR_ITS ---
XR surgery orthopedic 04/15/2022 14:50 Indication: Intertrochanteric nail placement. TECHNIQUE: Fluoroscopy used during pain management procedure performed by [Woodrow Cam MD] on 06/26/2021. 81 seconds with 7 images captured. FINDINGS: Correlate with procedure note. IMPRESSION: Fluoroscopy used during right intertrochanteric nail placement.. Correlate with procedura l note. Reviewed, dictated and finalized at location A. NER OPERATOR IMPRESSION: Fluoroscopy used during right intertrochanteric nail placement.. Co rrelate with procedural note.
--- NOTE | ~2022-04-14 | XR_ITS ---
XR femur RT min 2V DATE: 04/14/2022 17:33 INDICATION: Fall today. Recent right hip fracture repair TECHNIQUE: Crosstable lateral views of the right femur COMPARISON: 04/03/2020 122 right hip and right knee 04/14/2022 right hip FINDINGS: Status post ORIF right intertrochanteric hip fracture. The linear lucency along the proximal lateral right femoral shaft on 04/14/2022 AP views of right hip and pelvis is not readily evident on the lateral view is and what appear to be an incomplete linear f racture of the proximal right lateral femoral shaft, without involvement of the mid or distal femoral shaft. Intramedullary nail extends into the distal femoral shaft. IMPRESSION: Subtle nondisplaced linear lateral proximal femoral shaft incomplete cortical fracture Status post ORIF right intertrochanteric hip fracture, including nail extending into the distal femor al shaft Reviewed, dictated and finalized at location B. FILER IMPRESSION: Subtle nondisplaced linear lateral proximal femoral shaft incomplet e cortical fracture Status post ORIF right intertrochanteric hip fracture, including nail extending into the distal femoral shaft
--- NOTE | 2022-04-14 12:16 | ECG_ITS ---
Measurements Intervals [place] Rate: 76 P: 72 TX: 131 QRS: -2 QRSD: 103 T: 70 QT: 365 QTc: 411 Interpretive Statements SINUS RHYTHM BASELINE ARTIFACT IS PRESENT NONSPECIFIC ST-T WAVE ABNORMALITY COMPARED TO ECG 04/09/2022 23:23:27 NO SIGNIFICANT CHANGES Electronically Signed On 04-14-2022 14:46:10 FOREIGN CLERK by Cris Saini M.D.
--- NOTE | 2022-04-14 12:20 | PC.NURSE ---
Patient off unit to radiology.
--- NOTE | 2022-04-14 12:52 | ED.FALL ---
HPI - Fall General Chief Complaint: Fall Stated Complaint: GLF SHORT ROTATED S/P FEMUR NECK REPAIR Time Seen by Provider: 04/14/22 12:11 Source: patient Mode of arrival: wheelchair Limitations: no limitations History of Present Illness HPI Narrative: The patient is a 71-year-old female with a history of HTN, HLD, previous CVA, frequent falls, hx of tobacco abuse, and recent hospitalization for fall and femur fracture s/p ORIF on 04/04/[address] Cam, presenting to the emergency department for evaluation of recurrent fall. Reportedly, patient slipped out of her wheelchair when attempting a transfer. Patient landed on her bottom, reporting right hip pain and shortened per EMS. Patient was given morphine in route. Patient reports pain at that location. Otherwise, patient is not a very reliable historian. She is alert and oriented to person, place, and to time. She denies any prodromal symptoms prior to the slip out of the chair. Denies current headache, chest pain, shortness of breath. She denies numbness in the bilateral lower extremities. Patient's pain is aching in the right hip, worsened with movement. Patient states that she has not seen her incision sites from previous surgery.? Related Data Allergies Allergy/AdvReac Type Severity Reaction Status Date / Time No Known Allergies Allergy Verified 04/14/22 07:27 Review of Systems Review of Systems: CONSTITUTIONAL: Denies fever, chills, or sweats. EYES: Denies visual changes, redness, or discharge. CARDIOVASCULAR: Denies chest pain, palpitations, or edema. RESPIRATORY: Denies cough or dyspnea. GASTROINTESTINAL: Denies abdominal pain, nausea, vomiting, or diarrhea. GENITOURINARY: Denies dysuria or hematuria. SKIN: Denies rash or itching. MUSCULOSKELETAL: Denies back pain, reports right hip pain and right upper leg pain NEUROLOGIC: Denies headache, numbness, or weakness. [facility] Past Medical History Medical History Boil Essential tremor Fall History of CVA (cerebrovascular accident) Hyperlipidemia Hypertension Need for 23-polyvalent pneumococcal polysaccharide vaccine Nicotine dependence TIA (transient ischemic attack) UTI (urinary tract infection) Surgical History Surgical History History of hysterectomy History of removal of pigmented skin lesion Family History Family History Mother Hypertension Social History Social History Social History: she lives with her and 1 of her sons. she has has 2 sons. 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 she drinks a can of beer at times and can drink up to 3 beers during the summer.(family member stated that she probably drinks more than stated) Poa her kids. code status full code Smoking packs per day: 1 Smoking cigarettes per day: 20.0 Years smoked: 28 Smoking pack-years: 28.00 Smoking status: Former smoker Tobacco type: cigarettes Alcohol intake: former Alcohol use details: social Substance use: never Substance use type: does not use Lack of Transportation: No Lack of Food: Never True Current Housing: Decline to Answer Concerned About Future Housing: No Difficulty Paying Gas/Electric Bills: No Difficulty Paying for Meds: No Currently Unemployed: No Education: Decline to Answer Difficulty w/ Childcare or Family Care: No Additional living arrangements comments: , has 2 children Gender identity (if verbalized by the patient): Female Spiritual care concerns: No Exam Narrative: GENERAL: Awake, alert, conversant HEAD: Normocephalic, atraumatic. EYES: PERRLA and EOMI. ENT: Nares clear, no rhinorrhea or epistaxis. Mucous membranes moist. NECK: Supple. CHEST: No respiratory distress, breathing even and non labore
[2022-04-14 12:55] LABS: Basophils Absolute Auto 0.1 K/mm3 (0.0-0.1); Basophils Percent Auto 0.5 % (0.2-1.2); Eosinophils Absolute Auto 0.1 K/mm3 (0-0.3); Eosinophils Percent Auto 0.9 % (0-4.4); Hematocrit 27.4 % (37.0-47.0); Hemoglobin 8.7 g/dL (12.0-15.0); Immature Granulocyte Absolute 0.06 K/mm3 (0.00-0.031); Immature Granulocyte Percent A 0.6 % (0-0.5); Lymphocytes Absolute Auto 0.73 K/mm3 (0.9-3.2); Lymphocytes Percent Auto 7.5 % (18.3-44.2); Mean Corpuscular HGB Conc 31.8 g/dl (32-36); Mean Corpuscular Hemoglobin 29.9 pg (26-34); Mean Corpuscular Volume 94.2 fl (80-100); Mean Platelet Volume 9.8 fl (7.4-10.4); Monocytes Absolute Auto 0.7 K/mm3 (0.1-0.6); Monocytes Percent Auto 6.8 % (2.6-8.5); Neutrophils Absolute Auto 8.2 K/mm3 (1.3-6.7); Neutrophils Percent Auto 83.7 % (45.5-73.1); Platelet Count Result 560 k/mm3 (150-375); Red Blood Count 2.91 M/mm3 (4.2-5.4); Red Cell Distribution Width 16.4 % (11.5-14.5); White Blood Count 9.7 K/mm3 (4.5-10.0)
[2022-04-14 13:08] LABS: Anion Gap 4 mmol/L (8-16); Blood Urea Nitrogen 29 mg/dL (7-17); Calcium 8.1 mg/dL (8.4-10.2); Carbon Dioxide 24 mmol/L (22-30); Chloride 110 mmol/L (98-107); Estimated CRCL calculation 29 ml/min; Estimated Glomerular Filt Rate 32; Glucose 98 mg/dL (65-110); Sodium 138 mmol/L (137-145)
--- NOTE | 2022-04-14 13:43 | PC.NURSE ---
Patient off unit to imaging.
[2022-04-14 14:41] LABS: Influenza A QL RT-PCR Negative (Negative); Influenza B QL RT-PCR Negative (Negative); RSV RNA, RT-PCR Negative (Negative); SARS-CoV-2 RNA PCR Negative
--- NOTE | 2022-04-14 15:40 | PM.IMHP ---
H&P: HPI History of Present Illness Date/Time: 04/14/22 15:40 Chief Complaint: Right leg pain after fall. Narrative: This is a 71-year-old female smoker with history of stroke, essential tremors, coronary artery disease, hypertension, and chronic kidney disease who presented to the emergency department via EMS for evaluation after a fall. She is not a great historian and some of the following history is supplemented via a review of her electronic medical records. I am not certain if she has some confusion at baseline and have yet been able to get a hold of family members. She was recently admitted to the hospital on 04/03/2022 with a right hip fracture after sustaining a mechanical fall. The fracture was repaired per Dr. Cam and she was discharged to [facility] facility for further rehab on 04/08/2022. it is my understanding that she has had several falls since that time and she was in fact seen in the emergency department at [facility] on 04/10/2022 for evaluation after a fall. Imaging at that time apparently looked okay however she was found to have urinary tract infection and elevated troponins. Transfer was initiated to [facility] for cardiology consultation however family refused and signed her out against medical advice and she returned to the shelter. Today she reportedly slipped out of her wheelchair when attempting a transfer and landed onto her bottom and she started complaining of right hip pain thereafter. Radiographs today revealed that her internal fixation remains intact however there is a new oblique, nondisplaced fracture at the lateral proximal femoral shaft and she is being admitted in this setting for ortho consultation with plans for further stabilization in the OR tomorrow per Dr. Cam. At the time my evaluation she is not having any discomfort as long as she is not actively touching the area in question or moving the leg too much. She does not really remember how the fall occurred but she does not believe there was any head trauma or loss of consciousness. She has no complaints and denies headache, vertigo, focal weakness, paresthesias, fever, chills, sweats, cold and flu symptoms, chest pain, pleuritic pain, shortness a breath, nausea, vomiting, diarrhea, and dysuria. Review of Systems Review of Systems: Twelve systems were reviewed but somewhat limited as she seems confused and I am not certain she is an accurate historian. [facility] Past Medical History Medical History (Updated 04/14/22 @ 20:24 by Ada Nj PA-C) Cerebrovascular accident Chronic kidney disease, stage 3 Essential tremor Fall Hyperlipidemia Hypertension Nicotine dependence Surgical History Surgical History (Updated 04/14/22 @ 20:19 by Ada Nj PA-C) History of hysterectomy History of open reduction and internal fixation (ORIF) procedure (04/04/22) Right hip fracture. History of removal of pigmented skin lesion Family History Family History Mother Hypertension Social History Social History (Updated 04/14/22 @ 20:20 by Ada Nj PA-C) Smoking packs per day: 1 Smoking cigarettes per day: 20.0 Years smoked: 28 Smoking pack-years: 28.00 Smoking status: Current every day smoker Tobacco type: cigarettes Alcohol intake: current Alcohol use details: social alcohol use in moderation. 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 Spiritual care concerns: No Meds Home M
--- NOTE | 2022-04-14 16:55 | PC.NURSE ---
Ortho at bedside to assess pt..
--- NOTE | 2022-04-14 17:21 | PM.CNOR ---
Assessment and Plan Assessment and plan (1) Femoral shaft fracture: Code(s): S72.309A - Unspecified fracture of shaft of unspecified femur, initial encounter for closed fracture Status: Acute Assessment and Plan: Patient is a 71-year-old female who slipped out of her wheelchair attempting to transfer today and landed onto the floor under her buttocks and complained of severe pain in her right hip. She was at the rehab facility. She underwent open reduction internal fixation of right comminuted 4 part intertrochanteric hip fracture with a long Arthrex trochanteric nail 10 days ago. Her postoperative course was uneventful prior to today. She was brought to the emergency room attending to hold the leg flexed and externally rotated at the hip for concern that she had additional fracture. The x-rays of the right hip and femur demonstrate the internal fixation which remains intact. She has about 3 mm of settling at the fracture compared with the intraoperative fluoroscopic x-rays which is typical with this fracture pattern but on the AP views of the right proximal femur 1 can see that there is a new oblique fracture line seen in the lateral femoral cortex starting 5.5 cm distal to the sliding hip screw. It is nondisplaced. I cannot see it on the lateral x-ray views. The significance of this fracture line is that it makes the internal fixation potentially unstable mood as there is potential for rotational displacement and axial collapse with weight-bearing since the stabilizing lag screw which provides stability by its presence within the intact lateral cortex of the proximal femur is now compromise since the lateral cortex is fractured And therefore portion of femur to which the brady is stabilized to the shaft is no longer connected to their yes rest of the shaft. Because of her stroke and some confusion it will be very hard for her to maintain a strict toe-touch weight-bearing which might be a option to consider and therefore I have recommended stabilizing the femoral shaft fracture by placing 1 or 2 interlocking screws at the distal end of the existing intramedullary brady. Her past medical history is significant for strokes in the past hypertension and long-term smoking history. She does have some confusion intermittently. She has chronic elevation of creatinine the 1.61.5 region which was transiently elevated with her surgical intervention 10 days ago. She has been evaluated by the traffic operations manager. She smokes 1 pack of cigarettes per day sometimes more. On exam today she was very pleasant. She had a lot of pain in the anterolateral proximal thigh with any movement of the right leg. She had resting on a pillow. She has intact motor function in the ankle and there is no swelling in the foot ankle or calf. She has a warm foot and palpable dorsalis pedis pulse. She denies any other areas of pain. Impression, new fracture proximal lateral femoral shaft on the right after a fall today from the wheelchair landing on her buttocks now 10 days after open reduction internal fixation of a comminuted 4 part intertrochanteric hip fracture from the long trochanteric nail device. I have recommended to her that we take her back to the operating room and stabilize her new femoral shaft fracture by putting 1 or 2 interlocking screws in the distal femur through the holes of the intramedullary brady currently in place. This will prevent rotational displacement at the fracture site as well as axial shortening with weight-bearing. She was supposed to be light partial weight-bearing for transfers only. She was unclear as to exactly what she was doing last several days in therapy and is confused when she tries to remember exactly. I have discussed that there are risks of surgery including risk of anesthesia the small risk of infection. Usually we can just make a 2 cm incision for interlocking screw so blood loss should be very minor. She had her Lovenox dose this mo
--- NOTE | 2022-04-14 19:05 | ADMGEN ---
This patient, Patricia Nava, was admitted to [facility] Surg Room 313-01. Patient/family oriented to hospital policies and general routines including ID bracelet, bed and alarms, visiting hours, pain management, procedures, bathroom and other care routines, personal items, smoking policy, room service/diet, and visiting hours. Information on how to activate the Rapid Response Team has been discussed. Patient/Family are encouraged to report perceived risks to care and to ask questions if they do not understand what they are told or what they should do.
[2022-04-14] MEDS: oxyCODONE HCL (*CRX) 2.5 MG TAB IR PO (20:37)
[2022-04-14] MEDS: PROPRANOLOL HCL 10 MG TABLET PO (22:25)
[2022-04-14] MEDS: ATORVASTATIN 40 MG TABLET PO (22:25)
[2022-04-14] MEDS: SENNA/DOCUSATE SODIUM TABLET 2 TAB PO (22:25)
[2022-04-15] VITALS (13 sets, daily range): BP systolic 126–189; BP diastolic 67–112; PULSE 64–86; RESP 14–20; TEMP 35.8–36.9; O2SAT 96–100; BMI 18.5
[2022-04-15 00:04] LABS: Appearance Urine Clear (Clear); Bilirubin Urine Negative (Negative); Blood Urine Negative (Negative); Color Urine Yellow (Yellow); Glucose Urine UA Negative (Negative); Ketones Urine Negative (Negative); Leukocyte Esterase Ur Negative LEU/UL (Negative); Nitrate Urine Negative (Negative); Protein Urine 1+ mg/dL (Negative); Specific Grav Ur 1.015 (1.001-1.035); Urobilinogen Urine 0.2 mg/dL (<2.0); pH Urine 6.5 (5.0-9.0)
[2022-04-15 00:06] LABS: Add Urine Microscopic? YES; Mucus Urine Rare /lpf; RBC Urine 0-2 /hpf (0-2); Squamous Epithelial Cell Urine Rare /hpf (Few); WBC Urine 0-3 /hpf
[2022-04-15 00:23] LABS: Amphetamine Screen Urine Negative (Negative); Barbiturate Screen Urine Negative (Negative); Benzodiazepines Screen Urine Negative (Negative); Cannabinoid Screen Urine Negative (Negative); Cocaine Screen Urine Negative (Negative); Methadone Screen Urine Negative (Negative); Opiate Screen Urine Positive (Negative); Phencyclidine Screen Urine Negative (Negative)
[2022-04-15] MEDS: oxyCODONE HCL (*CRX) 2.5 MG TAB IR PO ×3 (01:55→21:55)
[2022-04-15 06:38] LABS: Hematocrit 29.6 % (37.0-47.0); Hemoglobin 9.1 g/dL (12.0-15.0); Mean Corpuscular HGB Conc 30.7 g/dl (32-36); Mean Corpuscular Hemoglobin 29.7 pg (26-34); Mean Corpuscular Volume 96.7 fl (80-100); Mean Platelet Volume 9.8 fl (7.4-10.4); Platelet Count Result 580 k/mm3 (150-375); Red Blood Count 3.06 M/mm3 (4.2-5.4); Red Cell Distribution Width 16.6 % (11.5-14.5); White Blood Count 8.3 K/mm3 (4.5-10.0)
[2022-04-15 06:50] LABS: Ammonia < 9 umol/L (9-30)
[2022-04-15 06:55] LABS: Anion Gap 5 mmol/L (8-16); Blood Urea Nitrogen 26 mg/dL (7-17); Calcium 8.1 mg/dL (8.4-10.2); Carbon Dioxide 25 mmol/L (22-30); Chloride 110 mmol/L (98-107); Estimated CRCL calculation 28 ml/min; Estimated Glomerular Filt Rate 37; Glucose 84 mg/dL (65-110); Magnesium 2.3 mg/dL (1.6-2.3); Potassium 3.9 mmol/L (3.4-5.0); Sodium 140 mmol/L (137-145)
[2022-04-15] MEDS: SENNA/DOCUSATE SODIUM TABLET 2 TAB PO ×2 (09:22→16:52)
[2022-04-15] MEDS: amLODIPine BESYLATE 5 MG TABLET PO (09:22)
[2022-04-15] MEDS: FERROUS SULFATE 324 MG TABLET PO ×2 (09:22→16:52)
[2022-04-15] MEDS: PROPRANOLOL HCL 10 MG TABLET PO ×2 (09:22→16:52)
[2022-04-15] MEDS: polyethylene glycoL 3350 17 GM POWD.PACK PO (09:23)
[2022-04-15] MEDS: COLLAGENASE OINT 30 GM TUBE 1 APPLIC TOPICAL (09:26)
--- NOTE | 2022-04-15 11:53 | PM.IMPN ---
Progress Note: A&P Assessment and Plan (1) Fall from wheelchair: Code(s): W05.0XXA - Fall from non-moving wheelchair, initial encounter Status: Acute (2) Femoral shaft fracture: Code(s): S72.309A - Unspecified fracture of shaft of unspecified femur, initial encounter for closed fracture Status: Acute Assessment and Plan: surgical repair planned per ortho (3) Confusion: Code(s): R41.0 - Disorientation, unspecified Status: Acute Assessment and Plan: ? baseline - likely at baseline labs ok urine ok no infectious process identified (4) Anemia: Code(s): D64.9 - Anemia, unspecified Status: Acute Assessment and Plan: monitor (5) Chronic kidney disease, stage 3: Code(s): N18.30 - Chronic kidney disease, stage 3 unspecified Status: Acute Assessment and Plan: monitor (6) Essential tremor: Code(s): G25.0 - Essential tremor Status: Acute (7) Hypertension: Code(s): I10 - Essential (primary) hypertension Status: Acute Assessment and Plan: monitor Subjective Date/time seen: 04/15/22 11:53 no new complaints Exam Narrative: General: Chronically ill-appearing female in the semi-Paiz position in bed. Weight: 77.27 kilograms. BMI: 26.7. HEENT: Normocephalic, atraumatic. PERRL, EOMI. Sclera anicteric. Oral mucosa is tacky. Neck: Supple. Respiratory: Respirations are nonlabored. Lung sounds are a bit diminished at the bases with faint wheezing. Cardiovascular: Regular rate and rhythm with S1-S2. Gastrointestinal: Abdomen is soft, nontender, and nondistended with positive bowel sounds. Skin: Warm and dry. There is bruising along the right lateral leg around the knee. Musculoskeletal: She has point tenderness to palpation over the mid lateral right upper leg at the site of the new fracture. 2 dressings are clean, dry, and intact from recent surgery. Extremities: No cyanosis, clubbing, or edema. Radial and pedal pulses intact. Neurological: Alert to name, age, and date of . She cannot provide me with the current year or name of the president and she is also unable to tell me in what situation she was brought here to the hospital. Cranial nerves 2-12 are grossly intact. Speech is clear, somewhat tangential and occasionally circumstantial. No facial asymmetry. Hand legal director and foot pushes equal bilaterally. No gross focal deficits noted. Psychiatric: Pleasant and cooperative. She seems confused and a bit anxious at times. Objective Data Vital Signs Vital Signs: Vital Signs - 24 hr 04/14/22 12:47 04/14/22 12:52 04/14/22 13:00 Temperature Pulse Rate 67 66 66 Respiratory Rate 16 16 18 Blood Pressure 129/71 Pulse Oximetry 97 96 97 Oxygen Delivery 04/14/22 13:01 04/14/22 13:02 04/14/22 13:15 Temperature Pulse Rate 71 63 75 Respiratory Rate 15 17 11 L Blood Pressure 131/67 Pulse Oximetry 97 98 97 Oxygen Delivery 04/14/22 13:16 04/14/22 13:30 04/14/22 13:31 Temperature Pulse Rate 77 71 68 Respiratory Rate 19 19 16 Blood Pressure 134/78 130/76 Pulse Oximetry 96 98 97 Oxygen Delivery 04/14/22 13:32 04/14/22 14:55 04/14/22 15:44 Temperature Pulse Rate 71 75 70 Respiratory Rate 23 H 17 18 Blood Pressure Pulse Oximetry 98 Oxygen Delivery 04/14/22 15:45 04/14/22 16:00 04/14/22 16:15 Temperature Pulse Rate 68 68 68 Respiratory Rate 18 18 20 Blood Pressure Pulse Oximetry Oxygen Delivery 04/14/22 16:55 04/14/22 17:00 04/14/22 17:16 Temperature Pulse Rate 75 78 71 Respiratory Rate 21 H 17 17 Blood Pressure Pulse Oximetry Oxygen Delivery 04/14/22 22:25 04/14/22 22:00 04/15/22 00:59 Temperature 97.9 F Pulse Rate 68 69 Respiratory Rate 16 Blood Pressure 140/72 Pulse Oximetry 98 Oxygen Delivery Room Air 04/15/22 05:24 04/15/22 09:22 Temperature 97 F L Pulse Rate 81 76 Respirat
[2022-04-15] MEDS: LACTATED RINGERS 1,000 ML 30 ML IV CONT (12:40)
--- NOTE | 2022-04-15 13:16 | WPDANESEPPF ---
Anes - Initial Pre Proc Eval Procedure: Operation Date: 04/15/22 16:00 Proposed Procedures p Internal Fixation of Right Femoral Shaft Fracture - Woodrow Cam MD Date/Time: 04/15/22 13:16 Surgeon: Sagar Patrick MD Pre Op Diagnosis: Right femoral shaft fracture Patient Data Age: 71 Gender: F Height: 1.7 m Weight: 53.6 kg Last Vital Signs Temp 36.9 C 04/15/22 13:09 Pulse 71 04/15/22 13:09 Resp 16 04/15/22 13:09 BP 135/67 04/15/22 13:09 Pulse Ox 98 04/15/22 13:09 O2 Del Method Room Air 04/15/22 13:09 Allergies Allergy/AdvReac Type Severity Reaction Status Date / Time No Known Allergies Allergy Verified 04/15/22 13:00 Home Medications Medication Instructions Recorded Confirmed Type aspirin 81 mg tablet,delayed 81 mg PO DAILY #90 tabs 12/07/21 04/14/22 Rx release enoxaparin 30 mg/0.3 mL 30 mg (0.3 mL) subcut DAILY #38 mL 04/07/22 04/14/22 Rx subcutaneous syringe ergocalciferol (vitamin D2) 1,250 50,000 units PO WEEKLY #4 caps 04/07/22 04/14/22 Rx mcg (50,000 unit) capsule (Vitamin D2) oxycodone 5 mg tablet 5 mg PO Q4H PRN Pain Rated 4-6 #40 04/07/22 04/14/22 Rx tabs polyethylene glycol 3350 17 gram 17 g PO QAM #30 ea 04/07/22 04/14/22 Rx oral powder packet (Miralax) sennosides 8.6 mg-docusate sodium 2 tab PO BID #120 tabs 04/07/22 04/14/22 Rx 50 mg tablet (Senokot-S) acetaminophen 325 mg capsule 650 mg PO Q6H PRN pain (scale 04/08/22 04/14/22 Rx score 1-3) #30 caps ferrous sulfate 325 mg (65 mg 324 mg PO BIDWM #60 tabs 04/08/22 04/14/22 Rx iron) tablet sulfamethoxazole 800 1 tablet PO Q12H #20 tabs 04/10/22 04/14/22 Rx mg-trimethoprim 160 mg tablet (Bactrim DS) nicotine 21 mg/24 hr daily 1 patch transdermal DAILY #28 ea 04/13/22 04/14/22 Rx transdermal patch amlodipine 5 mg tablet 5 mg PO DAILY 04/14/22 04/14/22 History atorvastatin 40 mg tablet 40 mg PO HS 04/14/22 04/14/22 History clopidogrel 75 mg tablet 75 mg PO DAILY 04/14/22 04/14/22 History collagenase clostridium histo. 250 1 applic topical DAILY 04/14/22 04/14/22 History unit/gram topical ointment (Santyl) propranolol 10 mg tablet 10 mg PO BID 04/14/22 04/14/22 History Laboratory Tests 04/14/22 04/14/22 04/14/22 13:46 20:41 23:55 WBC RBC Hgb Hct MCV MCH MCHC RDW Plt Count MPV Sodium Potassium Chloride Carbon Dioxide Anion Gap BUN Creatinine Estim Creat Clear Calc Estimated GFR Glucose Calcium Magnesium Ammonia Vitamin B12 TSH (Reflex) Urine Color Yellow (Yellow) Urine Appearance Clear (Clear) Urine pH 6.5 (5.0-9.0) Ur Specific [place] 1.015 (1.001-1.035) Urine Protein 1+ mg/dL H mg/dL (Negative) Urine Glucose (UA) Negative mg/dL mg/dL (Negative) Urine Ketones Negative mg/dL mg/dL (Negative) Ur Blood (Man) Negative (Negative) Urine Nitrate Negative (Negative) Urine Bilirubin Negative (Negative) Urine Urobilinogen 0.2 mg/dL mg/dL (<2.0) Leukocyte Esterase Rfl Negative VICKY/UL VICKY/UL (Negative) Urine RBC 0-2 /hpf /hpf (0-2) Urine WBC 0-3 /hpf /hpf Ur Squamous Epith Cells Rare /hpf /hpf (Few) Urine Mucus Rare /lpf /lpf Urine Opiates Screen Urine Methadone Screen Ur Barbiturates Screen Ur Phencyclidine Scrn Ur Amphetamine Screen U Benzodiazepines Scrn Urine Cocaine Screen U Cannabinoids Screen Influenza A (RT-PCR) Negative (Negative) Influenza B (RT-PCR
--- NOTE | 2022-04-15 13:48 | WPDHPUPDATE1 ---
History and Physical Update Update Date/Time: 04/15/22 13:48 History and Physical has been reviewed, including an updated exam of the patient. There are NO changes in the patient's condition. Risks, benefits, and alternatives have been discussed and questions answered. Patient agrees to proceed with procedure.
--- NOTE | 2022-04-15 13:49 | WPDHPUPDATE1 ---
History and Physical Update Update Date/Time: 04/15/22 13:49 History and Physical has been reviewed, including an updated exam of the patient. There are NO changes in the patient's condition. Risks, benefits, and alternatives have been discussed and questions answered. Patient agrees to proceed with procedure.
[2022-04-15] MEDS: ceFAZolin 2 GM/D5W 50 ML 2 GM/50 ML BAG IVPB (13:51)
[2022-04-15] MEDS: ceFAZolin SODIUM 1 GM VIAL (14:12)
--- NOTE | 2022-04-15 15:41 | W.PM.PROC2 ---
Procedure Note - Detailed Date of Procedure 04/15/22 Pre-op Diagnosis Right femoral shaft fracture, history of or 4 part right intertrochanteric Post-op Diagnosis Same Procedure Performed Internal fixation of right femoral shaft fracture by placing 2 distal interlocking screws and all existing long intramedullary brady Surgeon Woodrow Cam MD Electrical Transmission Engineer Pat Anesthesia General Description of Procedure Patient was brought to the operating room and general anesthesia was administered. She received weight based vancomycin 2 g of Ancef preoperatively. She was placed on the fracture table with the right leg abducted the left hip flexed abducted out of the way and we brought in fluoro. X-rays showed the with an AP of the hip in full internal rotation we could see that the the rotation screw had backed out about 1 cm but the position of the screws in the femoral head remained normal and unchanged. The hairline crack could see in the femoral shaft could not be seen on the true AP but only with the leg externally rotated about 25? and remained nondisplaced. The lateral view showed significant impaction of the fracture compared to immediately postoperative from 10 days ago. The right leg was internally rotated and we brought in fluoro and demonstrated perfect circles on the lateral view visualizing the distal interlocking holes of the existing intramedullary brady. The skin had been scrubbed with chlorhexidine cloth earlier and this time was prepped and draped with ChloraPrep and shower curtain. Under fluoroscopic guidance we made a 1 cm incision over the distal interlocking screw hole and used the drill bit from the [employer] set which fit through the Morris pin pineda nicely so we could visualize the tip of the drill at the proximal end of the distal interlocking screw hole which is a slot and we used a mallet to gently indent the trocar tip of the drill then applied the drill drilled through the lateral cortex through the brady position within the interlocking screw hole was confirmed under fluoro and then we drilled across the far cortex. A 36 mm screw was placed without difficulty. We repeated the exact same process through the 2nd distal interlocking screw hole which was successfully carried out without difficulty. Final fluoroscopic views confirmed proper placement of screws in the distal femur the wounds were irrigated and closed with 2-0 subcutaneous Vicryl and glue. EBL was only about 5 cc. There were no complications he was transferred postop recovery in stable condition. Estimated Blood Loss 5 Complications No immediate complications Condition Stable
[2022-04-15] MEDS: NICOTINE (*PBKC) 21 MG PATCH 1 PATCH TRANSDERM (16:52)
[2022-04-15] MEDS: ACETAMINOPHEN 325 MG TABLET 650 MG PO (16:52)
[2022-04-15] MEDS: HALOPERIDOL LACTATE 5 MG/ML VIAL 2 MG IM (18:45)
--- NOTE | 2022-04-15 18:49 | PC.NURSE ---
Wasted Pt Zyprexa due to refusing to take it, witness was Kajal Gaona RN.
[2022-04-15] MEDS: ATORVASTATIN 40 MG TABLET PO (21:34)
[2022-04-15] MEDS: SULFAMETHOXAZOLE/TRIMETHOPRIM 400/80 MG TABLET 1 TAB PO (21:34)
[2022-04-15 23:34] LABS: Glucose Point of Care 134 mg/dl (65-105)
[2022-04-16] VITALS (7 sets, daily range): BP systolic 144–173; BP diastolic 76–84; PULSE 69–85; RESP 14–20; TEMP 36.2–36.4; O2SAT 98–99; BMI 10.0
[2022-04-16] MEDS: oxyCODONE HCL (*CRX) 2.5 MG TAB IR PO ×3 (03:57→16:46)
[2022-04-16] MEDS: ACETAMINOPHEN 325 MG TABLET 650 MG PO ×3 (04:45→16:37)
[2022-04-16 07:38] LABS: Basophils Absolute Auto 0.1 K/mm3 (0.0-0.1); Basophils Percent Auto 0.8 % (0.2-1.2); Eosinophils Absolute Auto 0.2 K/mm3 (0-0.3); Eosinophils Percent Auto 1.7 % (0-4.4); Hematocrit 29.1 % (37.0-47.0); Immature Granulocyte Absolute 0.04 K/mm3 (0.00-0.031); Immature Granulocyte Percent A 0.4 % (0-0.5); Lymphocytes Absolute Auto 1.13 K/mm3 (0.9-3.2); Lymphocytes Percent Auto 12.2 % (18.3-44.2); Mean Corpuscular HGB Conc 30.9 g/dl (32-36); Mean Corpuscular Hemoglobin 29.9 pg (26-34); Mean Corpuscular Volume 96.7 fl (80-100); Monocytes Absolute Auto 0.7 K/mm3 (0.1-0.6); Monocytes Percent Auto 7.1 % (2.6-8.5); Neutrophils Absolute Auto 7.2 K/mm3 (1.3-6.7); Neutrophils Percent Auto 77.8 % (45.5-73.1); Platelet Count Result 588 k/mm3 (150-375); Red Blood Count 3.01 M/mm3 (4.2-5.4); Red Cell Distribution Width 16.6 % (11.5-14.5); White Blood Count 9.3 K/mm3 (4.5-10.0)
[2022-04-16 07:43] LABS: Anion Gap 6 mmol/L (8-16); Blood Urea Nitrogen 26 mg/dL (7-17); Carbon Dioxide 23 mmol/L (22-30); Chloride 109 mmol/L (98-107); Estimated CRCL calculation 31 ml/min; Estimated Glomerular Filt Rate 40; Glucose 79 mg/dL (65-110); Potassium 4.2 mmol/L (3.4-5.0); Sodium 138 mmol/L (137-145)
--- NOTE | 2022-04-16 09:29 | PM.PNORT ---
Progress Note: A&P Assessment and Plan (1) Femoral shaft fracture: Code(s): S72.309A - Unspecified fracture of shaft of unspecified femur, initial encounter for closed fracture Status: Acute Assessment and Plan: Patient is postoperative day 1 after internal fixation stabilizing fracture of the lateral femoral shaft by placing 2 distal interlocking screws in the existing trochanteric nail. Her creatinine is lower at 1.3 which gives a creatinine clearance of 31. I do not think that increasing her Lovenox dose is appropriate since this is the 1st time that her GFR has been over 30 and she is also on Plavix and baby aspirin. Her hemoglobin is stable at 9.0. Platelets elevated at 588,000. this elevation is likely due to bone marrow reaction to her acute blood-loss anemia from 11 days ago. She is hypertensive but vital signs otherwise stable. Oxygen saturation 99% on room air. patient's leg has neutral rotation and no shortening. Her distal incisions show no drainage on the dressing. She has ecchymosis in the thigh no swelling the Leg However. She is much more calm this morning and very pleasant and states that her thigh feels much better. She was able to give me more of a history and explained how much pain she was having just prior to being brought to the emergency room with any transfers and she is not experiencing that now and hopefully she will do well working on transfers with physical therapy once again this morning. SCDs are in place. From an orthopedic standpoint we can start working on transfer back to the detention if hospitalist feels she is medically stable enough to do so. She states she feels much less anxious today because her pain is much less and seems to be a much better historian. I asked her what year it was then initially she said 192. I asked if she was sure and she realized her mistake and then said 2021 so I think her orientation is better as well seems to be at baseline. (2) Intertrochanteric fracture of right hip: Code(s): S72.141A - Displaced intertrochanteric fracture of right femur, initial encounter for closed fracture Status: Acute Subjective Subjective Date/Time Seen: 04/16/22 09:29 Objective Data Vital Signs Vital Signs: Vital Signs - 24 hr 04/15/22 13:09 04/15/22 14:55 04/15/22 15:10 Temperature 36.9 C Pulse Rate 71 64 66 Respiratory Rate 16 14 16 Blood Pressure 135/67 137/98 H 171/80 H Pulse Oximetry 98 99 98 Oxygen Delivery Room Air Simple Face Mask Room Air Oxygen Flow Rate 8 04/15/22 15:25 04/15/22 15:45 04/15/22 16:06 Temperature 35.8 C L Pulse Rate 69 66 72 Respiratory Rate 16 16 16 Blood Pressure 151/78 H 155/78 H 126/112 H Pulse Oximetry 99 99 100 Oxygen Delivery Room Air Oxygen Flow Rate 04/15/22 16:36 04/15/22 16:52 04/15/22 21:31 Temperature 36.6 C Pulse Rate 71 68 80 Respiratory Rate 18 Blood Pressure 148/72 H 189/80 H Pulse Oximetry 96 Oxygen Delivery Oxygen Flow Rate 04/15/22 23:14 04/15/22 20:20 04/16/22 05:36 Temperature 36.4 C L 36.2 C L Pulse Rate 86 86 71 Respiratory Rate 16 16 14 Blood Pressure 170/86 H 154/77 H Pulse Oximetry 96 96 99 Oxygen Delivery Room Air Oxygen Flow Rate 04/16/22 08:31 Temperature Pulse Rate Respiratory Rate Blood Pressure Pulse Oximetry Oxygen Delivery Room Air Oxygen Flow Rate Intake/Output Intake/Output: Intake & Output 04/13/22 04/14/22 04/15/22 04/16/22 23:59 23:59 23:59 23:59 Intake Total 65 1630 500 Output Total 2575 600 Balance 65 945 -100 Meds/Results Medications: Active Medications Generic Name Dose Route Start Last Admin Trade Name Freq PRN Reason Stop Dose Admin Acetaminophen 650 mg 04/15/22 17:00 04/16/22 04:45 Acetaminophen 325 Mg Tablet PO 650 mg Q6H ROSIE Administration Aspirin 81 mg 04/16/22 09:00 Aspirin 81 Mg Enteric Tablet PO DAILY ROSIE Atorvastatin Calcium
[2022-04-16] MEDS: SENNA/DOCUSATE SODIUM TABLET 2 TAB PO ×2 (10:14→16:37)
[2022-04-16] MEDS: ENOXAPARIN 30 MG/0.3 ML SYRINGE SUB-Q (10:14)
[2022-04-16] MEDS: CLOPIDOGREL BISULFATE 75 MG TABLET PO (10:15)
[2022-04-16] MEDS: PROPRANOLOL HCL 10 MG TABLET PO ×2 (10:17→16:38)
[2022-04-16] MEDS: SULFAMETHOXAZOLE/TRIMETHOPRIM 400/80 MG TABLET 1 TAB PO ×2 (10:17→21:18)
[2022-04-16] MEDS: NICOTINE (*PBKC) 21 MG PATCH 1 PATCH TRANSDERM (10:19)
[2022-04-16] MEDS: FERROUS SULFATE 324 MG TABLET PO ×2 (10:19→16:37)
[2022-04-16] MEDS: ASPIRIN 81 MG ENTERIC TABLET PO (10:19)
[2022-04-16] MEDS: polyethylene glycoL 3350 17 GM POWD.PACK PO (10:20)
[2022-04-16] MEDS: COLLAGENASE OINT 30 GM TUBE 1 APPLIC TOPICAL (10:20)
--- NOTE | 2022-04-16 10:58 | PM.IMPN ---
Progress Note: A&P Assessment and Plan (1) Fall from wheelchair: Code(s): W05.0XXA - Fall from non-moving wheelchair, initial encounter Status: Acute (2) Femoral shaft fracture: Code(s): S72.309A - Unspecified fracture of shaft of unspecified femur, initial encounter for closed fracture Status: Acute Assessment and Plan: surgical repair planned per ortho (3) Confusion: Code(s): R41.0 - Disorientation, unspecified Status: Acute Assessment and Plan: ? baseline - likely at baseline labs ok urine ok no infectious process identified (4) Anemia: Code(s): D64.9 - Anemia, unspecified Status: Acute Assessment and Plan: monitor (5) Chronic kidney disease, stage 3: Code(s): N18.30 - Chronic kidney disease, stage 3 unspecified Status: Acute Assessment and Plan: monitor (6) Essential tremor: Code(s): G25.0 - Essential tremor Status: Acute (7) Hypertension: Code(s): I10 - Essential (primary) hypertension Status: Acute Assessment and Plan: monitor Subjective Date/time seen: 04/16/22 10:58 no complaints Exam Narrative: General: Chronically ill-appearing female in the semi-Paiz position in bed. Weight: 77.27 kilograms. BMI: 26.7. HEENT: Normocephalic, atraumatic. PERRL, EOMI. Sclera anicteric. Oral mucosa is tacky. Neck: Supple. Respiratory: Respirations are nonlabored. Lung sounds are a bit diminished at the bases with faint wheezing. Cardiovascular: Regular rate and rhythm with S1-S2. Gastrointestinal: Abdomen is soft, nontender, and nondistended with positive bowel sounds. Skin: Warm and dry. There is bruising along the right lateral leg around the knee. Musculoskeletal: She has point tenderness to palpation over the mid lateral right upper leg at the site of the new fracture. 2 dressings are clean, dry, and intact from recent surgery. Extremities: No cyanosis, clubbing, or edema. Radial and pedal pulses intact. Neurological: Alert to name, age, and date of . She cannot provide me with the current year or name of the president and she is also unable to tell me in what situation she was brought here to the hospital. Cranial nerves 2-12 are grossly intact. Speech is clear, somewhat tangential and occasionally circumstantial. No facial asymmetry. Hand shearer operator and foot pushes equal bilaterally. No gross focal deficits noted. Psychiatric: Pleasant and cooperative. She seems confused and a bit anxious at times. Objective Data Vital Signs Vital Signs: Vital Signs - 24 hr 04/15/22 13:09 04/15/22 14:55 04/15/22 15:10 Temperature 98.5 F Pulse Rate 71 64 66 Respiratory Rate 16 14 16 Blood Pressure 135/67 137/98 H 171/80 H Pulse Oximetry 98 99 98 Oxygen Delivery Room Air Simple Face Mask Room Air Oxygen Flow Rate 8 04/15/22 15:25 04/15/22 15:45 04/15/22 16:06 Temperature 96.4 F L Pulse Rate 69 66 72 Respiratory Rate 16 16 16 Blood Pressure 151/78 H 155/78 H 126/112 H Pulse Oximetry 99 99 100 Oxygen Delivery Room Air Oxygen Flow Rate 04/15/22 16:36 04/15/22 16:52 04/15/22 21:31 Temperature 97.9 F Pulse Rate 71 68 80 Respiratory Rate 18 Blood Pressure 148/72 H 189/80 H Pulse Oximetry 96 Oxygen Delivery Oxygen Flow Rate 04/15/22 23:14 04/15/22 20:20 04/16/22 05:36 Temperature 97.5 F L 97.2 F L Pulse Rate 86 86 71 Respiratory Rate 16 16 14 Blood Pressure 170/86 H 154/77 H Pulse Oximetry 96 96 99 Oxygen Delivery Room Air Oxygen Flow Rate 04/16/22 08:31 04/16/22 10:17 Temperature Pulse Rate 85 Respiratory Rate Blood Pressure Pulse Oximetry Oxygen Delivery Room Air Oxygen Flow Rate Intake/Output Intake/Output: Intake & Output 04/13/22 04/14/22 04/15/22 04/16/22 23:59 23:59 23:59 23:59 Intake Total 65 1630 500 Output Total 2575 600 Balance 65 -945 -100 Meds/Results Medications: Active Medic
--- NOTE | 2022-04-16 12:47 | PCPTNOTE ---
pt has orders ambulate with assist and communication note from Dr Cam for bed/chair only ; discussed this with ROBYN Castro, she will clarify with Dr Cam. Discussed with her that pt is NOT able strong enough to ambulate and have Bed/Chair orders only;
[2022-04-16] MEDS: ATORVASTATIN 40 MG TABLET PO (21:18)
[2022-04-17] MEDS: ACETAMINOPHEN 325 MG TABLET 650 MG PO ×4 (00:08→17:52)
[2022-04-17] MEDS: oxyCODONE HCL (*CRX) 2.5 MG TAB IR PO ×2 (05:33→07:56)
[2022-04-17] MEDS: polyethylene glycoL 3350 17 GM POWD.PACK PO (07:55)
[2022-04-17] MEDS: SULFAMETHOXAZOLE/TRIMETHOPRIM 400/80 MG TABLET 1 TAB PO ×2 (07:55→21:20)
[2022-04-17] MEDS: CLOPIDOGREL BISULFATE 75 MG TABLET PO (07:56)
[2022-04-17] MEDS: ASPIRIN 81 MG ENTERIC TABLET PO (07:56)
[2022-04-17] MEDS: SENNA/DOCUSATE SODIUM TABLET 2 TAB PO ×2 (07:56→17:52)
[2022-04-17 07:57] VITALS: PULSE 71
[2022-04-17] MEDS: FERROUS SULFATE 324 MG TABLET PO ×2 (07:57→17:52)
[2022-04-17] MEDS: PROPRANOLOL HCL 10 MG TABLET PO ×2 (07:57→17:52)
[2022-04-17] MEDS: ENOXAPARIN 30 MG/0.3 ML SYRINGE SUB-Q (07:57)
[2022-04-17] MEDS: NICOTINE (*PBKC) 21 MG PATCH 1 PATCH TRANSDERM (07:57)
[2022-04-17] MEDS: COLLAGENASE OINT 30 GM TUBE 1 APPLIC TOPICAL (08:01)
--- NOTE | 2022-04-17 12:22 | PM.IMPN ---
Progress Note: A&P Assessment and Plan (1) Fall from wheelchair: Code(s): W05.0XXA - Fall from non-moving wheelchair, initial encounter Status: Acute (2) Femoral shaft fracture: Code(s): S72.309A - Unspecified fracture of shaft of unspecified femur, initial encounter for closed fracture Status: Acute Assessment and Plan: surgical repair repair per ortho doing well (3) Confusion: Code(s): R41.0 - Disorientation, unspecified Status: Acute Assessment and Plan: Likely baseline. give haldol prn (4) Anemia: Code(s): D64.9 - Anemia, unspecified Status: Acute Assessment and Plan: monitor (5) Chronic kidney disease, stage 3: Code(s): N18.30 - Chronic kidney disease, stage 3 unspecified Status: Acute Assessment and Plan: monitor (6) Essential tremor: Code(s): G25.0 - Essential tremor Status: Acute (7) Hypertension: Code(s): I10 - Essential (primary) hypertension Status: Acute Assessment and Plan: monitor Subjective Date/time seen: 04/17/22 12:22 agitated at times. Otherwise pleasant. No focal deficits Exam Narrative: General: Chronically ill-appearing female in the semi-Paiz position in bed. Weight: 77.27 kilograms. BMI: 26.7. HEENT: Normocephalic, atraumatic. PERRL, EOMI. Sclera anicteric. Oral mucosa is tacky. Neck: Supple. Respiratory: Respirations are nonlabored. Lung sounds are a bit diminished at the bases with faint wheezing. Cardiovascular: Regular rate and rhythm with S1-S2. Gastrointestinal: Abdomen is soft, nontender, and nondistended with positive bowel sounds. Skin: Warm and dry. There is bruising along the right lateral leg around the knee. Musculoskeletal: She has point tenderness to palpation over the mid lateral right upper leg at the site of the new fracture. 2 dressings are clean, dry, and intact from recent surgery. Extremities: No cyanosis, clubbing, or edema. Radial and pedal pulses intact. Neurological: Alert to name, age, and date of . She cannot provide me with the current year or name of the president and she is also unable to tell me in what situation she was brought here to the hospital. Cranial nerves 2-12 are grossly intact. Speech is clear, somewhat tangential and occasionally circumstantial. No facial asymmetry. 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 No gross focal deficits noted. Psychiatric: Pleasant and cooperative. She seems confused and a bit anxious at times. Objective Data Vital Signs Vital Signs: Vital Signs - 24 hr 04/16/22 16:00 04/16/22 16:38 04/16/22 22:04 Temperature 97.2 F L 97.6 F Pulse Rate 81 81 71 Respiratory Rate 20 14 Blood Pressure 173/84 H 166/81 H Pulse Oximetry 99 98 Oxygen Delivery 04/16/22 20:35 04/17/22 07:57 04/17/22 08:00 Temperature Pulse Rate 71 71 Respiratory Rate 14 Blood Pressure Pulse Oximetry 98 Oxygen Delivery Room Air Room Air Intake/Output Intake/Output: Intake & Output 04/14/22 04/15/22 04/16/22 04/17/22 23:59 23:59 23:59 23:59 Intake Total 65 1630 990 740 Output Total 2575 1100 1200 Balance 65 -945 -110 -460 Meds/Results Medications: Active Medications Generic Name Dose Route Start Last Admin Trade Name Freq PRN Reason Stop Dose Admin Acetaminophen 650 mg 04/15/22 17:00 04/17/22 10:53 Acetaminophen 325 Mg Tablet PO 650 mg Q6H ROSIE Administration Aspirin 81 mg 04/16/22 09:00 04/17/22 07:56 Aspirin 81 Mg Enteric Tablet PO 81 mg DAILY ROSIE Administration Atorvastatin Calcium 40 mg 04/14/22 21:00 04/16/22 21:18 Atorvastatin 40 Mg Tablet PO 40 mg HS ROSIE Administration Clopidogrel Bisulfate 75 mg 04/16/22 09:00 04/17/22 07:56 Clopidogrel Bisulfate 75 Mg Tablet PO 75 mg DAILY ROSIE Administration Collagenase 1 applic 04/15/22 09:00 04/17/22 08:01 Collagenase Oint 30 Gm Tube TOPICAL 1 appl
[2022-04-17 14:06] VITALS: BP 104/87; PULSE 84; RESP 16; TEMP 36.1; O2SAT 100
[2022-04-17 17:52] VITALS: PULSE 84
[2022-04-17] MEDS: ATORVASTATIN 40 MG TABLET PO (21:20)
[2022-04-17 22:00] VITALS: BP 143/81; PULSE 65; RESP 20; TEMP 36.9; O2SAT 100
--- NOTE | 2022-04-17 23:38 | PC.NURSE ---
Pt sleeping. Pt woke up to take medication. Pt unable to participate in plan of care due to A&O status. Will continue to monitor pt.
[2022-04-18 06:15] VITALS: BP 140/70; PULSE 68; RESP 18; TEMP 36.4; O2SAT 98
[2022-04-18 06:40] LABS: Anion Gap 2 mmol/L (8-16); Blood Urea Nitrogen 27 mg/dL (7-17); Carbon Dioxide 24 mmol/L (22-30); Chloride 107 mmol/L (98-107); Estimated CRCL calculation 27 ml/min; Estimated Glomerular Filt Rate 30; Glucose 88 mg/dL (65-110); Sodium 133 mmol/L (137-145)
[2022-04-18 06:42] LABS: Hematocrit 29.1 % (37.0-47.0); Hemoglobin 9.1 g/dL (12.0-15.0); Mean Corpuscular HGB Conc 31.3 g/dl (32-36); Platelet Count Result 554 k/mm3 (150-375); Red Blood Count 3.03 M/mm3 (4.2-5.4); Red Cell Distribution Width 17.1 % (11.5-14.5); White Blood Count 6.5 K/mm3 (4.5-10.0)
[2022-04-18] MEDS: SENNA/DOCUSATE SODIUM TABLET 2 TAB PO ×2 (09:22→17:55)
[2022-04-18] MEDS: SULFAMETHOXAZOLE/TRIMETHOPRIM 400/80 MG TABLET 1 TAB PO ×2 (09:22→20:53)
[2022-04-18] MEDS: NICOTINE (*PBKC) 21 MG PATCH 1 PATCH TRANSDERM (09:23)
[2022-04-18] MEDS: FERROUS SULFATE 324 MG TABLET PO ×2 (09:23→17:55)
[2022-04-18] MEDS: ENOXAPARIN 30 MG/0.3 ML SYRINGE SUB-Q (09:23)
[2022-04-18 09:24] VITALS: PULSE 68
[2022-04-18] MEDS: OLANZapine 2.5 MG TABLET PO (09:24)
[2022-04-18] MEDS: ASPIRIN 81 MG ENTERIC TABLET PO (09:24)
[2022-04-18] MEDS: CLOPIDOGREL BISULFATE 75 MG TABLET PO (09:24)
[2022-04-18] MEDS: PROPRANOLOL HCL 10 MG TABLET PO ×2 (09:24→17:56)
[2022-04-18] MEDS: COLLAGENASE OINT 30 GM TUBE 1 APPLIC TOPICAL (09:26)
--- NOTE | 2022-04-18 10:21 | PCNFU ---
Nutrition Follow-Up Complete: Increased protein energy needs related to unstageable pressure injury to sacrum present on admission as evidenced by wound report. Goal:Meet estimated nutrition needs Pt current nutrition is Regular. Nutrition recommendation: Add Ensure compact BID, LISANDRO BID Last recorded weight is 66.5 kg - up from 53kg - unsure of wt accuracy. Bowel Motility: +BM 04/18 Labs Reviewed: Hgb:9.1, HCT:29.1, NA:133, BUN:27, Cr:1.7 Meds Noted: lovenox, miralax Skin: unstageable pressure injury to sacrum Additional Notes: Diet advanced to regular, intake varied from chart, 25-75%. Will order Ensure compact and LISANDRO BID per previous recommendation. Agree with diet orders. Monitoring diet advancement, intakes, wound healing, labs, plan of care. Follow up in 7 days
[2022-04-18] MEDS: ACETAMINOPHEN 325 MG TABLET 650 MG PO ×3 (11:42→22:04)
--- NOTE | 2022-04-18 12:00 | PM.IMPN ---
Progress Note: A&P Assessment and Plan (1) Fall from wheelchair: Code(s): W05.0XXA - Fall from non-moving wheelchair, initial encounter Status: Acute (2) Femoral shaft fracture: Code(s): S72.309A - Unspecified fracture of shaft of unspecified femur, initial encounter for closed fracture Status: Acute Assessment and Plan: surgical repair repair per ortho doing well (3) Confusion: Code(s): R41.0 - Disorientation, unspecified Status: Acute Assessment and Plan: Likely baseline. give haldol prn (4) Anemia: Code(s): D64.9 - Anemia, unspecified Status: Acute Assessment and Plan: monitor (5) Chronic kidney disease, stage 3: Code(s): N18.30 - Chronic kidney disease, stage 3 unspecified Status: Acute Assessment and Plan: monitor (6) Essential tremor: Code(s): G25.0 - Essential tremor Status: Acute (7) Hypertension: Code(s): I10 - Essential (primary) hypertension Status: Acute Assessment and Plan: monitor Subjective Date/time seen: 04/18/22 12:00 no complaints Exam Narrative: General: Chronically ill-appearing female in the semi-Paiz position in bed. Weight: 77.27 kilograms. BMI: 26.7. HEENT: Normocephalic, atraumatic. PERRL, EOMI. Sclera anicteric. Oral mucosa is tacky. Neck: Supple. Respiratory: Respirations are nonlabored. Lung sounds are a bit diminished at the bases with faint wheezing. Cardiovascular: Regular rate and rhythm with S1-S2. Gastrointestinal: Abdomen is soft, nontender, and nondistended with positive bowel sounds. Skin: Warm and dry. There is bruising along the right lateral leg around the knee. Musculoskeletal: She has point tenderness to palpation over the mid lateral right upper leg at the site of the new fracture. 2 dressings are clean, dry, and intact from recent surgery. Extremities: No cyanosis, clubbing, or edema. Radial and pedal pulses intact. Neurological: Alert to name, age, and date of . She cannot provide me with the current year or name of the president and she is also unable to tell me in what situation she was brought here to the hospital. Cranial nerves 2-12 are grossly intact. Speech is clear, somewhat tangential and occasionally circumstantial. No facial asymmetry. 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 No gross focal deficits noted. Psychiatric: Pleasant and cooperative. She seems confused and a bit anxious at times. Objective Data Vital Signs Vital Signs: Vital Signs - 24 hr 04/17/22 14:06 04/17/22 17:52 04/17/22 21:25 Temperature 97.0 F L Pulse Rate 84 84 Respiratory Rate 16 Blood Pressure 104/87 Pulse Oximetry 100 Oxygen Delivery Room Air 04/17/22 22:00 04/18/22 06:15 04/18/22 09:24 Temperature 98.4 F 97.5 F L Pulse Rate 65 68 68 Respiratory Rate 20 18 Blood Pressure 143/81 H 140/70 Pulse Oximetry 100 98 Oxygen Delivery 04/18/22 09:30 Temperature Pulse Rate Respiratory Rate Blood Pressure Pulse Oximetry Oxygen Delivery Room Air Intake/Output Intake/Output: Intake & Output 04/15/22 04/16/22 04/17/22 04/18/22 23:59 23:59 23:59 23:59 Intake Total 1630 990 980 120 Output Total 2575 1100 1650 300 [facility] -945 -110 -670 -180 Meds/Results Medications: Active Medications Generic Name Dose Route Start Last Admin Trade Name Freq PRN Reason Stop Dose Admin Acetaminophen 650 mg 04/15/22 17:00 04/18/22 11:42 Acetaminophen 325 Mg Tablet PO 650 mg Q6H ROSIE Administration Aspirin 81 mg 04/16/22 09:00 04/18/22 09:24 Aspirin 81 Mg Enteric Tablet PO 81 mg DAILY ROSIE Administration Atorvastatin Calcium 40 mg 04/14/22 21:00 04/17/22 21:20 Atorvastatin 40 Mg Tablet PO 40 mg HS ROSIE Administration Clopidogrel Bisulfate 75 mg 04/16/22 09:00 04/18/22 09:24 Clopidogrel Bisulfate 75 Mg Tablet PO 75 mg DAILY ROSIE Administration Collagenas
--- NOTE | 2022-04-18 13:00 | PM.PNORT ---
Subjective Subjective Date/Time Seen: 04/18/22 13:00 postop day 3 patient's dressing is dry. She is afebrile vital signs are stable. She appears in no distress. Her facility that she came from is not accepting her back and care coordination is working on getting her accepted to another facility. Her creatinine did go back up to 1.7 this morning. She does have history of chronic kidney disease. It did improve last 2 days with fluid. Going to order her a low-dose needs half-normal saline to make sure she stays hydrated. Objective Data Vital Signs Vital Signs: Vital Signs - 24 hr 04/17/22 14:06 04/17/22 17:52 04/17/22 21:25 Temperature 36.1 C L Pulse Rate 84 84 Respiratory Rate 16 Blood Pressure 104/87 Pulse Oximetry 100 Oxygen Delivery Room Air 04/17/22 22:00 04/18/22 06:15 04/18/22 09:24 Temperature 36.9 C 36.4 C L Pulse Rate 65 68 68 Respiratory Rate 20 18 Blood Pressure 143/81 H 140/70 Pulse Oximetry 100 98 Oxygen Delivery 04/18/22 09:30 Temperature Pulse Rate Respiratory Rate Blood Pressure Pulse Oximetry Oxygen Delivery Room Air Intake/Output Intake/Output: Intake & Output 04/15/22 04/16/22 04/17/22 04/18/22 23:59 23:59 23:59 23:59 Intake Total 1630 990 980 720 Output Total 2575 1100 1650 300 Balance -945 -110 -670 420 Meds/Results Medications: Active Medications Generic Name Dose Route Start Last Admin Trade Name Scoutq PRN Reason Stop Dose Admin Acetaminophen 650 mg 04/15/22 17:00 04/18/22 11:42 Acetaminophen 325 Mg Tablet PO 650 mg Q6H ROSIE Administration Aspirin 81 mg 04/16/22 09:00 04/18/22 09:24 Aspirin 81 Mg Enteric Tablet PO 81 mg DAILY ROSIE Administration Atorvastatin Calcium 40 mg 04/14/22 21:00 04/17/22 21:20 Atorvastatin 40 Mg Tablet PO 40 mg HS ROSIE Administration Clopidogrel Bisulfate 75 mg 04/16/22 09:00 04/18/22 09:24 Clopidogrel Bisulfate 75 Mg Tablet PO 75 mg DAILY ROSIE Administration Collagenase 1 applic 04/15/22 09:00 04/18/22 09:26 Collagenase Oint 30 Gm Tube TOPICAL 1 applic DAILY ROSIE Administration Enoxaparin Sodium 30 mg 04/16/22 09:00 04/18/22 09:23 Enoxaparin 30 Mg/0.3 Ml Syringe SUB-Q 30 mg DAILY ROSIE Administration Ferrous Sulfate 324 mg 04/15/22 08:00 04/18/22 09:23 Ferrous Sulfate 324 Mg Tablet PO 324 mg BIDWM ROSIE Administration Haloperidol 1 mg 04/17/22 12:23 Haloperidol 1 Mg Tablet PO DAILY PRN Agitation Naloxone HCl 0.1 mg 04/15/22 15:51 Naloxone Hcl 0.4 Mg/Ml Vial IV PUSH Q2M PRN Opiate Reversal Nicotine 1 patch 04/15/22 16:10 04/18/22 09:23 Nicotine (*Pbkc) 21 Mg Patch TRANSDERM 1 patch DAILY ROSIE Administration Olanzapine 2.5 mg 04/18/22 09:00 04/18/22 09:24 Olanzapine 2.5 Mg Tablet PO 2.5 mg QAM ROSIE Administration Oxycodone HCl 2.5 mg 04/14/22 17:32 04/17/22 07:56 Oxycodone Hcl (*Crx) 2.5 Mg Tab Ir PO 2.5 mg Q4H PRN Administration Pain Rated 7-10 Polyethylene Glycol 17 gm 04/15/22 09:00 04/18/22 09:25 Polyethylene Glycol 3350 17 Gm Powd.Pack PO Not Given QAM ROSIE Propranolol HCl 10 mg 04/14/22 20:40 04/18/22 09:24 Propranolol Hcl 10 Mg Tablet PO 10 mg BID ROSIE Administration Senna/Docusate Sodium 2 tab 04/14/22 20:40 04/18/22 09:22 Senna/Docusate Sodium Tablet PO 2 tab BID ROSIE Administration Trimethoprim/Sulfamethoxazole 1 tab 04/15/22 13:00 04/18/22 09:22 Sulfamethoxazole/Trimethoprim 400/80 Mg Tablet PO 04/20/22 23:59 1 tab Q12HR ROSIE Administration Radiology Results: ITS Impressions Hip/Pelvis X-Ray 04/14/22 12:28 IMPRESSION: New linear nondisplaced proximal right ureteral femoral shaft fracture Status post ORIF right intertrochanteric hip fracture Femur X-Ray 04/14/22 17:35 IMPRESSION: Subtle nondisplaced linear lateral proximal femoral shaft incomplete cortical fracture Status post ORIF right intertr
[2022-04-18] MEDS: SODIUM CHLORIDE 0.9% IV 1,000 ML 80 ML IV CONT (13:15)
[2022-04-18 14:15] VITALS: BP 122/85; PULSE 65; RESP 14; TEMP 36.6; O2SAT 99
[2022-04-18 17:56] VITALS: PULSE 65
[2022-04-18] MEDS: ATORVASTATIN 40 MG TABLET PO (20:53)
[2022-04-18 21:31] VITALS: BP 181/87; PULSE 61; RESP 20; TEMP 36.8; O2SAT 100
[2022-04-18] MEDS: HALOPERIDOL 1 MG TABLET PO (21:52)
[2022-04-18] MEDS: hydrALAZINE HCL 20 MG/ML VIAL 10 MG IV PUSH (22:03)
[2022-04-18 22:05] VITALS: BP 186/92
[2022-04-19] MEDS: SODIUM CHLORIDE 0.9% IV 1,000 ML 80 ML IV CONT (02:06)
[2022-04-19] MEDS: ACETAMINOPHEN 325 MG TABLET 650 MG PO ×3 (05:27→17:46)
[2022-04-19 06:00] VITALS: BP 151/60; PULSE 77; RESP 18; TEMP 36.6; O2SAT 100
--- NOTE | 2022-04-19 06:44 | PM.PNORT ---
Subjective Subjective Date/Time Seen: 04/19/22 06:44 postop day 4 patient had significant confusion last night. She is low but that has morning. Morning labs are not done yet. Dressing is dry. Care coordination is working on rehab if placement. Objective Data Vital Signs Vital Signs: Vital Signs - 24 hr 04/18/22 09:24 04/18/22 09:30 04/18/22 14:15 Temperature 36.6 C Pulse Rate 68 65 Respiratory Rate 14 Blood Pressure 122/85 Pulse Oximetry 99 Oxygen Delivery Room Air 04/18/22 17:56 04/18/22 21:31 04/18/22 22:05 Temperature 36.8 C Pulse Rate 65 61 Respiratory Rate 20 Blood Pressure 181/87 H 186/92 H Pulse Oximetry 100 Oxygen Delivery 04/18/22 21:00 04/19/22 06:00 Temperature 36.6 C Pulse Rate 77 Respiratory Rate 18 Blood Pressure 151/60 H Pulse Oximetry 100 Oxygen Delivery Room Air Intake/Output Intake/Output: Intake & Output 04/16/22 04/17/22 04/18/22 04/19/22 23:59 23:59 23:59 23:59 Intake Total 410 754 3787 1000 Output Total 1100 9881 883 9855 Balance -110 -670 295 -350 Meds/Results Medications: Active Medications Generic Name Dose Route Start Last Admin Trade Name Rebecca PRN Reason Stop Dose Admin Acetaminophen 650 mg 04/15/22 17:00 04/19/22 05:27 Acetaminophen 325 Mg Tablet PO 650 mg Q6H ROSIE Administration Aspirin 81 mg 04/16/22 09:00 04/18/22 09:24 Aspirin 81 Mg Enteric Tablet PO 81 mg DAILY ROSIE Administration Atorvastatin Calcium 40 mg 04/14/22 21:00 04/18/22 20:53 Atorvastatin 40 Mg Tablet PO 40 mg HS ROSIE Administration Clopidogrel Bisulfate 75 mg 04/16/22 09:00 04/18/22 09:24 Clopidogrel Bisulfate 75 Mg Tablet PO 75 mg DAILY ROSIE Administration Collagenase 1 applic 04/15/22 09:00 04/18/22 09:26 Collagenase Oint 30 Gm Tube TOPICAL 1 applic DAILY ROSIE Administration Enoxaparin Sodium 30 mg 04/16/22 09:00 04/18/22 09:23 Enoxaparin 30 Mg/0.3 Ml Syringe SUB-Q 30 mg DAILY ROSIE Administration Ferrous Sulfate 324 mg 04/15/22 08:00 04/18/22 17:55 Ferrous Sulfate 324 Mg Tablet PO 324 mg BIDWM ROSIE Administration Haloperidol 1 mg 04/17/22 12:23 04/18/22 21:52 Haloperidol 1 Mg Tablet PO 1 mg DAILY PRN Administration Agitation Sodium Chloride 1,000 mls @ 80 mls/hr 04/18/22 13:05 04/19/22 02:06 Normal Saline Iv IV CONT 80 mls/hr .[id number] ROSIE Administration Naloxone HCl 0.1 mg 04/15/22 15:51 Naloxone Hcl 0.4 Mg/Ml Vial IV PUSH Q2M PRN Opiate Reversal Nicotine 1 patch 04/15/22 16:10 04/18/22 09:23 Nicotine (*Pbkc) 21 Mg Patch TRANSDERM 1 patch DAILY ROSIE Administration Olanzapine 2.5 mg 04/18/22 09:00 04/18/22 09:24 Olanzapine 2.5 Mg Tablet PO 2.5 mg QAM ROSIE Administration Oxycodone HCl 2.5 mg 04/14/22 17:32 04/17/22 07:56 Oxycodone Hcl (*Crx) 2.5 Mg Tab Ir PO 2.5 mg Q4H PRN Administration Pain Rated 7-10 Polyethylene Glycol 17 gm 04/15/22 09:00 04/18/22 09:25 Polyethylene Glycol 3350 17 Gm Powd.Pack PO Not Given QAM ROSIE Propranolol HCl 10 mg 04/14/22 20:40 04/18/22 17:56 Propranolol Hcl 10 Mg Tablet PO 10 mg BID ROSIE Administration Senna/Docusate Sodium 2 tab 04/14/22 20:40 04/18/22 17:55 Senna/Docusate Sodium Tablet PO 2 tab BID ROSIE Administration Trimethoprim/Sulfamethoxazole 1 tab 04/15/22 13:00 04/18/22 20:53 Sulfamethoxazole/Trimethoprim 400/80 Mg Tablet PO 04/20/22 23:59 1 tab Q12HR ROSIE Administration Radiology Results: ITS Impressions Hip/Pelvis X-Ray 04/14/22 12:28 IMPRESSION: New linear nondisplaced proximal right ureteral femoral shaft fracture Status post ORIF right intertrochanteric hip fracture Femur X-Ray 04/14/22 17:35 IMPRESSION: Subtle nondisplaced linear lateral proximal femoral shaft incomplete cortical fracture Status post ORIF right intertrochanteric hip fracture, including nail extending into the distal femoral
--- NOTE | 2022-04-19 08:56 | PCOTNOTE ---
Attempted to see patient, patient refused activity at this time. Patient making statements such as I guess they force you to eat breakfast here ... I guess you already poisoned it ...patient very suspicious of this therapist. Patient asked whether she wanted to eat breakfast, patient declined, stated above. Patient setup for breakfast in bed, with therapist making notes to patient of items that are sealed due to patient's previous statements. Will continue plan of care for OT.
[2022-04-19] MEDS: CLOPIDOGREL BISULFATE 75 MG TABLET PO (09:24)
[2022-04-19 09:51] VITALS: PULSE 80
[2022-04-19] MEDS: ENOXAPARIN 30 MG/0.3 ML SYRINGE SUB-Q (09:51)
[2022-04-19] MEDS: PROPRANOLOL HCL 10 MG TABLET PO ×2 (09:51→17:47)
[2022-04-19] MEDS: OLANZapine 2.5 MG TABLET PO (09:52)
[2022-04-19] MEDS: SENNA/DOCUSATE SODIUM TABLET 2 TAB PO ×2 (09:53→17:46)
[2022-04-19] MEDS: ASPIRIN 81 MG ENTERIC TABLET PO (09:53)
[2022-04-19] MEDS: SULFAMETHOXAZOLE/TRIMETHOPRIM 400/80 MG TABLET 1 TAB PO (09:54)
[2022-04-19] MEDS: FERROUS SULFATE 324 MG TABLET PO ×2 (09:54→17:46)
[2022-04-19] MEDS: COLLAGENASE OINT 30 GM TUBE 1 APPLIC TOPICAL (09:56)
[2022-04-19] MEDS: polyethylene glycoL 3350 17 GM POWD.PACK PO (09:56)
[2022-04-19] MEDS: NICOTINE (*PBKC) 21 MG PATCH 1 PATCH TRANSDERM (09:57)
--- NOTE | 2022-04-19 13:58 | PM.DS ---
DS: Admitting Diagnosis Discharge Date April 19, 2022 Admitting Diagnosis femur fracture DS: Discharge Diagnosis Discharge Diagnosis (1) Fall from wheelchair: Code(s): W05.0XXA - Fall from non-moving wheelchair, initial encounter Status: Acute (2) Femoral shaft fracture: Code(s): S72.309A - Unspecified fracture of shaft of unspecified femur, initial encounter for closed fracture Status: Acute Assessment and Plan: surgical repair repair per ortho doing well (3) Confusion: Code(s): R41.0 - Disorientation, unspecified Status: Acute Assessment and Plan: Likely baseline. give haldol prn (4) Anemia: Code(s): D64.9 - Anemia, unspecified Status: Acute Assessment and Plan: monitor (5) Chronic kidney disease, stage 3: Code(s): N18.30 - Chronic kidney disease, stage 3 unspecified Status: Acute Assessment and Plan: monitor (6) Essential tremor: Code(s): G25.0 - Essential tremor Status: Acute (7) Hypertension: Code(s): I10 - Essential (primary) hypertension Status: Acute Assessment and Plan: monitor DS: Summary Hospital Course Hospital Course: patient admitted for femur fracture status post repair. Doing well continue pain medications on discharge patient will be discharged to skilled facility. Follow-up with orthopedics Time Spent with Patient Time attestation: Total time spent providing and/or coordinating discharge services: Exam Narrative: General: Chronically ill-appearing female in the semi-Paiz position in bed. Weight: 77.27 kilograms. BMI: 26.7. HEENT: Normocephalic, atraumatic. PERRL, EOMI. Sclera anicteric. Oral mucosa is tacky. Neck: Supple. Respiratory: Respirations are nonlabored. Lung sounds are a bit diminished at the bases with faint wheezing. Cardiovascular: Regular rate and rhythm with S1-S2. Gastrointestinal: Abdomen is soft, nontender, and nondistended with positive bowel sounds. Skin: Warm and dry. There is bruising along the right lateral leg around the knee. Musculoskeletal: She has point tenderness to palpation over the mid lateral right upper leg at the site of the new fracture. 2 dressings are clean, dry, and intact from recent surgery. Extremities: No cyanosis, clubbing, or edema. Radial and pedal pulses intact. Neurological: Alert to name, age, and date of . She cannot provide me with the current year or name of the president and she is also unable to tell me in what situation she was brought here to the hospital. Cranial nerves 2-12 are grossly intact. Speech is clear, somewhat tangential and occasionally circumstantial. No facial asymmetry. 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 No gross focal deficits noted. Psychiatric: Pleasant and cooperative. She seems confused and a bit anxious at times. Discharge Plan Discharge Attending physician on discharge: Олег Ruff Consulting providers: Woodrow Cam Discharging Clinician: Олег Ruff Patient Disposition: SNF Activity: may shower and no preference Diet: as tolerated Discharge Instructions: May remove the Mepilex dressing from the lateral distal right thigh on 04/22/2022 and leave the incisions open to air at that point. Resume therapy work on transfers bed to chair only, light partial weight-bearing for transfers. Patient has some confusion and I do not think she is a safe candidate to protector hip satisfactorily during work on ambulation and for this reason we are keeping her at bed to chair transfer only. We will most likely be able to increase her mobilization to weight-bearing as tolerated with a walker in other 3 weeks approximately. Use the 14 mg nicotine patch daily for 14 days and then decrease to the 7 mg nicotine patch for 7 days and then stop. Stand Alone Forms: General Discharge Information Discharge Medications: New oxycodone 5
[2022-04-19 14:00] VITALS: BP 139/85; PULSE 64; RESP 20; TEMP 36.2; O2SAT 100
[2022-04-19 17:47] VITALS: PULSE 78
== END 2022-04-19 20:40 | DRG 482 ==
LOC: ANHED 16:22 → ANH3MEDSUR 18:51
PROVIDERS: Orthopaedic Surgery; Physician Assistant; Admitting Provider Internal Medicine; Emergency Provider Emergency Medicine; PCP Nurse Practitioner Family; Visit Provider Chiropractor
PROC: 0QH834Z Insertion of Internal Fixation Device into Right Femoral Shaft, Percutaneous Approach (ICD-10-PCS; CPT 27245; principal; 2022-04-15 16:00)
DX: S72.301A Unspecified fracture of shaft of right femur, initial encounter for closed fracture (principal); S72.141D Displaced intertrochanteric fracture of right femur, subsequent encounter for closed fracture with routine healing; W05.0XXA Fall from non-moving wheelchair, initial encounter; Z20.822 Contact with and (suspected) exposure to COVID-19; R29.6 Repeated falls; E78.5 Hyperlipidemia, unspecified; I12.9 Hypertensive chronic kidney disease with stage 1 through stage 4 chronic kidney disease, or unspecified chronic kidney disease; N18.30 Chronic kidney disease, stage 3 unspecified; D50.9 Iron deficiency anemia, unspecified; R41.0 Disorientation, unspecified; G25.0 Essential tremor; I25.10 Atherosclerotic heart disease of native coronary artery without angina pectoris; Z90.710 Acquired absence of both cervix and uterus; Z86.73 Personal history of transient ischemic attack (TIA), and cerebral infarction without residual deficits; Z87.891 Personal history of nicotine dependence; Z79.82 Long term (current) use of aspirin
CPT/HCPCS: 36415; 70450; 73502; 73552; 80048; 80307; 81001; 82140; 82607; 82948; 83735; 84443; 85025; 85027; 86850; 86900; 86901; 87637; 93005; 97110; 97161; 97165; 97530; 97535; 99199; 99285; A9270; J0131; J0360; J0690; J1100; J1630; J1650; J2405; J2704; J3370; J7030; J7120